=== PATIENT | female | born 1955 | race Caucasian/White ===

== ENCOUNTER → 2018-02-04 11:37 | Outpatient (CLI) | payer OTHER, SELFPAY ==
--- NOTE | 2018-02-04 11:44 | RAD_ITS ---
STUDY: X-RAY - ABDOMEN/PELVIS REASON FOR EXAM: Female, 62 years old. Mid abdominal pain, nausea. TECHNIQUE: Three AP supine views of the abdomen and pelvis. COMPARISON: CT abdomen and pelvis October 02, 2015 FINDINGS: Normal visualized lung bases. There is an unremarkable bowel gas pattern. There is no demonstrated free abdominal air. Surgical clips of prior right nephrectomy again seen projecting to the right of the upper lumbar spine. The visualized liver, spleen, and left renal shadow are grossly normal in size and morphology. There are calcified phleboliths in the pelvis. 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 RAD/Abdomen Single View IMPRESSION: 1. Prior right nephrectomy. 2. Nonspecific bowel gas pattern. No free gas. 3. The visualized lung bases are clear. Electronically Signed: Pablo Subramanian MD at 14:02 EDT , Service support ,
[2018-02-04 14:27] LABS: Absolute Lymphocyte Count 1.78 X10^3/ul (0.83-4.51); Absolute Neutrophil Count 3.8 X10^3/uL (2.0-7.7); Basophil# 0.06 X10^3/uL; Basophil% 0.9 % (0-1); Eosinophil# 0.23 X10^3/uL; Eosinophils% 3.6 % (0-5); Hematocrit 40.7 % (37-47); Hemoglobin 13.8 g/dl (12.0-15.0); Lymphocyte # 1.78 X10^3/ul (4.0); Lymphocyte % 27.9 % (19-41); Mean Corp Hgb Conc 33.9 g/gl (32-36); Mean Corpuscular Hgb 31.2 pg (27.0-32.0); Mean Corpuscular Volume 91.9 fL (81-99); Mean Platelet Vol. 9.4 fl (6.2-12.0); Monocyte# 0.53 X10^3/uL; Monocyte% 8.3 % (0-10); Neutrophil # 3.78 X10^3/uL (2.7-7.7); Neutrophil % 59.3 % (47-70); Platelet Count 336 K/mm3 (150-450); RBC Distribution Width CV 11.8 % (11.6-14.6); Red Blood Count 4.43 M/mm3 (4.2-5.4); White Blood Count 6.4 K/mm3 (4.4-11.0)
[2018-02-04 14:38] LABS: POSITIVE COUNT NO; POSITIVE DIFFERENTIAL NO; POSITIVE MORPHOLOGY NO
[2018-02-04 14:42] LABS: ALB/GLOB Ratio 1.1 RATIO (0.9-2.4); AST(SGOT) 21 U/L (15-37); Alanine Aminotransfer ALT/SGPT 32 U/L (13-56); Albumin, Serum 4.2 g/dL (3.2-5.0); Alkaline Phosphatase 99 U/L (45-117); Anion Gap 8 (5-15); BUN 15 mg/dL (7-18); BUN/Creat Ratio 11.3 RATIO (10-20); Calcium,Total 9.2 mg/dL (8.5-10.1); Chloride 93 mmol/L (98-107); Creatinine, Serum 1.33 mg/dL (0.55-1.02); EST Glomerular Filtration Rate 43 mL/min (>60); Est Glom Filt Rate - Afr Amer 52 mL/min (>60); Globulin 3.7 g/dL (2.2-4.2); Glucose 96 mg/dL (74-106); Lipase 163 U/L (73-393); Potassium 4.1 mmol/L (3.5-5.1); Protein, Total 7.9 g/dL (6.4-8.2); Sodium Level 132 mmol/L (136-145)
[2018-02-15 17:30] LABS: Renin, Plasma 0.353 ng/mL/hr (0.167-5.380)
== END ==
PROVIDERS: Family Provider Family Medicine; PCP Family Medicine; Visit Provider Family Medicine
DX: R10.9 Unspecified abdominal pain (principal); E27.40 Unspecified adrenocortical insufficiency; Z51.81 Encounter for therapeutic drug level monitoring
CPT/HCPCS: 36415; 74018; 80053; 81002; 83690; 84244; 85025

== ENCOUNTER → 2018-08-23 14:16 | Outpatient (CLI) | payer OTHER, SELFPAY ==
[2018-08-22 11:47] VITALS: BMI 31.4
== END ==
PROVIDERS: Family Provider Family Medicine; PCP Family Medicine; Referring Provider Physician Assistant; Visit Provider Physician Assistant
DX: J02.9 Acute pharyngitis, unspecified (principal)
CPT/HCPCS: 87081

== ENCOUNTER → 2018-12-25 08:57 | Outpatient (CLI) | payer OTHER, SELFPAY ==
[2018-08-22 11:47] VITALS: BMI 31.4
--- NOTE | 2018-12-25 09:01 | BI_ITS ---
MAMMOGRAPHY - BILATERAL SCREENING 3-D TOMOSYNTHESIS REASON FOR EXAM: Female, 63 years old. Bilateral Screening 3-D tomosynthesis PERTINENT HISTORY: Bilateral breast reduction in 2010.. TECHNIQUE: 2-D mammograms and 3-D Tomosynthesis of the breast (s) were performed. CAD was performed. COMPARISON: July 15, 2017. FINDINGS: The breast composition is composed of scattered fibroglandular density. Scattered benign calcifications are seen. No dense spiculated masses or suspicious microcalcifications are identified. No architectural distortion is identified. There is no skin thickening or retraction. There are typically benign appearing calcifications involving the anterior regions of both breasts.. There has been no significant change since the prior study. BI/SCREENING MAMM (CAD), BILAT IMPRESSION: No mammographic signs of malignancy. Routine yearly mammograms recommended. ASSESSMENT CATEGORY: BIRADS Category 2: Benign. A letter regarding these results will be sent to the patient by the facility within 30 days. FOLLOW UP RECOMMENDATION: Yearly follow up mammogram recommended. (A) Approximately 10% of breast cancers are not detected by mammography. A normal mammogram should not delay biopsy of a clinically suspicious abnormality. Electronically Signed: Eulalio Miramontes MD at 10:00 EDT , Service support ,
== END ==
PROVIDERS: Family Provider Family Medicine; PCP Family Medicine; Referring Provider Family Medicine; Visit Provider Family Medicine
DX: Z12.31 Encounter for screening mammogram for malignant neoplasm of breast (principal)
CPT/HCPCS: 77063; 77067

== ENCOUNTER → 2019-01-18 08:24 | Outpatient (CLI) | payer OTHER, SELFPAY ==
[2018-08-22 11:47] VITALS: BMI 31.4
[2019-01-18 12:38] LABS: Absolute Lymphocyte Count 1.83 X10^3/ul (0.83-4.51); Absolute Neutrophil Count 3.8 X10^3/uL (2.0-7.7); Basophil# 0.05 X10^3/uL; Basophil% 0.8 % (0-1); Eosinophils% 4.5 % (0-5); Hematocrit 39.3 % (37-47); Hemoglobin 13.3 g/dl (12.0-15.0); Lymphocyte # 1.83 X10^3/ul (4.0); Lymphocyte % 27.5 % (19-41); Mean Corp Hgb Conc 33.8 g/gl (32-36); Mean Corpuscular Hgb 31.4 pg (27.0-32.0); Mean Corpuscular Volume 92.7 fL (81-99); Mean Platelet Vol. 9.5 fl (6.2-12.0); Monocyte# 0.66 X10^3/uL; Monocyte% 9.9 % (0-10); Neutrophil % 57.1 % (47-70); Platelet Count 291 K/mm3 (150-450); RBC Distribution Width CV 11.6 % (11.6-14.6); RBC Distribution Width SD 38.8 fl (35.1-43.9); Red Blood Count 4.24 M/mm3 (4.2-5.4); White Blood Count 6.7 K/mm3 (4.4-11.0)
[2019-01-18 12:44] LABS: POSITIVE COUNT NO; POSITIVE DIFFERENTIAL NO; POSITIVE MORPHOLOGY NO
[2019-01-18 12:54] LABS: Vitamin D,25 Hydroxy 59.9 ng/mL (29.95-100.01)
[2019-01-18 13:03] LABS: ALB/GLOB Ratio 1.1 RATIO (0.9-2.4); AST(SGOT) 21 U/L (15-37); Alanine Aminotransfer ALT/SGPT 29 U/L (13-56); Albumin, Serum 3.8 g/dL (3.2-5.0); Alkaline Phosphatase 73 U/L (45-117); Anion Gap 9 (5-15); BUN 33 mg/dL (7-18); BUN/Creat Ratio 22.8 RATIO (10-20); Calcium,Total 9.2 mg/dL (8.5-10.1); Chloride 98 mmol/L (98-107); Cholesterol 249 mg/dL (200); Creatinine, Serum 1.45 mg/dL (0.55-1.02); EST Glomerular Filtration Rate 39 mL/min (>60); Est Glom Filt Rate - Afr Amer 47 mL/min (>60); Globulin 3.6 g/dL (2.2-4.2); Glucose 81 mg/dL (74-106); High Density Lipoprotein 62 mg/dL; Potassium 4.2 mmol/L (3.5-5.1); Protein, Total 7.4 g/dL (6.4-8.2); Sodium Level 135 mmol/L (136-145); Triglycerides 97 mg/dL; Very Low Density Lipoprotein 19 mg/dL (5-40)
== END ==
PROVIDERS: Family Provider Family Medicine; PCP Family Medicine; Visit Provider Family Medicine
DX: Z00.00 Encounter for general adult medical examination without abnormal findings (principal); E27.40 Unspecified adrenocortical insufficiency; E55.9 Vitamin D deficiency, unspecified
CPT/HCPCS: 36415; 80053; 80061; 82306; 82533; 85025

== ENCOUNTER → 2019-02-05 09:02 | Outpatient (CLI) | payer OTHER, SELFPAY ==
[2018-08-22 11:47] VITALS: BMI 31.4
--- NOTE | 2019-02-05 09:10 | RAD_ITS ---
HISTORY:PERSISTENT COUGH PERSISTENT COUGH EXAM: XR Chest 2 Views: COMPARISON: October 02, 2015 FINDINGS: # of images incl. paperwork: 2 LINES/DEVICES: None. LUNGS: Radiographically clear. No consolidation, edema or effusion. No pneumothorax. MEDIASTINUM AND CARDIOVASCULAR STRUCTURES: Cardiac silhouette not enlarged. BONES AND SOFT TISSUES: Unremarkable. RAD/Chest PA and Lateral IMPRESSION: No radiographic evidence of acute cardiopulmonary disease. at 2311 Reported and signed by: Camille Alvarado DO Electronically Signed: Camille Alvarado DO at 23:10 EDT Tel , Service support ,
--- NOTE | 2019-02-05 09:19 | RAD_ITS ---
HISTORY:CHRONIC MID LEVEL TO LOWER THORACIC PAIN CHRONIC MID LEVEL TO LOWER THORACIC PAIN EXAMINATION/TECHNIQUE: XR Spine Thoracic 3 Views: COMPARISON: None FINDINGS: VERTEBRAE: Preserved vertebral body height. No fracture. No spondylolisthesis. Degenerative changes of the posterior elements. Preservation of the normal thoracic kyphosis. DISCS: Degenerative changes are noted. INCLUDED CHEST/ABDOMEN: No acute abnormalities. RAD/Thoracic Spine 3 Views IMPRESSION: Degenerative changes. No acute fracture or spondylolisthesis. at 0014 Reported and signed by: Camille Alvarado DO Electronically Signed: Camille Alvarado DO at 0:13 EDT Tel , Service support ,
== END ==
PROVIDERS: Family Provider Family Medicine; PCP Family Medicine; Referring Provider Family Medicine; Visit Provider Family Medicine
DX: R05 Cough (principal); M54.6 Pain in thoracic spine
CPT/HCPCS: 71046; 72072

== ENCOUNTER → 2019-02-17 13:25 | Outpatient (CLI) | payer OTHER, SELFPAY ==
[2018-08-22 11:47] VITALS: BMI 31.4
== END ==
PROVIDERS: Family Provider Family Medicine; PCP Family Medicine; Visit Provider Family Medicine
DX: E27.40 Unspecified adrenocortical insufficiency (principal)
CPT/HCPCS: 82533

== ENCOUNTER 2019-02-24 11:38 | Emergency (ER) | payer OTHER, SELFPAY ==
[2018-08-22 11:47] VITALS: BMI 31.4
[2019-02-24 11:39] VITALS: BP 166/96; PULSE 72; RESP 18; TEMP 36.4; O2SAT 99; BMI 29.5
--- NOTE | 2019-02-24 11:53 | ED.VIS.UPPEX ---
History of Present Illness Chief Complaint: Laceration Detail of Chief Complaint: Right thumb laceration Informant: Patient Occurred: Today Mechanism/Context: - - Cut right thumb while using a mandolin to slice vegetables. Onset: Today Timing: Continuous Quality of Pain: Aching, Throbbing Current Severity: Mild Maximum Severity: Moderate Narrative: Patient is a [id number]-bmja-ydomymdd female who cut her right thumb while using a mandolin to slice vegetables. She is unsure of her last tetanus update. Past Medical History - Allergies and Home Meds Allergies/Adverse Reactions: Allergies Sulfa (Sulfonamide Antibiotics) Allergy (Verified 02/24/19 11:42) Hives Primary Care Physician: Weston Cárdenas DO [Primary Care Provider] - Surgical History: - - Nephrectomy on the right. She donated her kidney to her brother.appy,hysterectemy Smoking Status: Never smoker - Family History Maternal Family History: Family History (Last Reviewed 08/22/18 @ 11:41 by Sandra Brito) Mother Myocardial infarction Heart disease Father Heart disease Brother Kidney disease Family History: Reports: Diabetes, Heart Disease Paternal Family History: Family History (Last Reviewed 08/22/18 @ 11:41 by Sandra Brito) Mother Myocardial infarction Heart disease Father Heart disease Brother Kidney disease Family History: Reports: Asthma, Diabetes, Heart Disease Review of Systems General: Denies: Chills, Fever Cardiovascular: Denies: Chest pain Respiratory: Denies: Dyspnea, Cough Genitourinary: Denies: Dysuria Musculoskeletal: Reports: Arthralgias Physical Exam Vital Signs/Narrative: Vital Signs Temp Pulse Resp BP Pulse Ox 02/24/19 11:39 97.6 F L 72 18 166/96 H 99 Inital Vital Signs reviewed: Yes Right Hand: - - 3 cm total length V-shaped laceration over the distal right thumb. Mild bleeding noted at this time. She has good range of motion and good cap refill distally. Sensation is intact. General: Well nourished, Well developed ENT: No Trauma Neck: Nontender Cardiovascular: Regular rate, Regular rhythm Respiratory: No distress Abdomen: Soft, Nontender Skin: - - Laceration as above Procedures - Lacerations No standard instances Length: 1.18 in - V-shaped laceration Shape: Flap Prep: Donald Laceration Repair: Digital block, Lidocaine Irrigated (ml): 30 Number of Sutures/Adam: 7 Suture Information: Simple, 4-0, 5-0 Disposition: Home ED Disposition - Plan for ED Patient: Disposition: Home or Assisted Living Diagnosis: Laceration of right thumb Instructions: LACERATION, Hand Referrals: Weston Cárdenas DO [Primary Care Provider] - 7 Days for suture removal
[2019-02-24] MEDS: Diphth,Pertuss(Acell),Tet Vac 0.5 ML Vial IM (11:57)
[2019-02-24 12:43] VITALS: BP 185/77; PULSE 68; RESP 15
== END 2019-02-24 12:44 | disposition home or self-care (01) ==
PROVIDERS: Emergency Provider Emergency Medicine; Family Provider Family Medicine; PCP Family Medicine
DX: S61.011A Laceration without foreign body of right thumb without damage to nail, initial encounter (principal); W27.8XXA Contact with other nonpowered hand tool, initial encounter; Y93.G1 Activity, food preparation and clean up; Y92.9 Unspecified place or not applicable; Y99.9 Unspecified external cause status; Z88.2 Allergy status to sulfonamides; Z90.5 Acquired absence of kidney
CPT/HCPCS: 12002; 90715; 99283

== ENCOUNTER → 2019-03-04 07:59 | Outpatient (CLI) | payer OTHER, SELFPAY ==
[2018-08-22 11:47] VITALS: BMI 31.4
[2019-02-24 11:39] VITALS: BMI 29.5
== END ==
PROVIDERS: Family Provider Family Medicine; PCP Family Medicine; Visit Provider Family Medicine
DX: E27.40 Unspecified adrenocortical insufficiency (principal)
CPT/HCPCS: 36415; 82533

== ENCOUNTER → 2019-04-21 14:16 | Outpatient (CLI) | payer OTHER, SELFPAY ==
--- NOTE | 2019-04-21 14:30 | RAD_ITS ---
STUDY: X-RAY CHEST REASON FOR EXAM: Female, 63 years old. persistent cough TECHNIQUE: PA and lateral views of the chest. COMPARISON: February 05, 2019, January 11, 2015 FINDINGS: The lungs are clear and expanded. The upper lobes do appear hyperlucent which may relate to underlying COPD. There is no demonstrated pleural abnormality. Normal size heart. Normal mediastinum and niko. Normal visualized pulmonary arteries. There is atherosclerotic calcification of the aortic arch with tortuosity. There are diffuse degenerative changes of the visualized thoracic spine. Normal visualized ribs, clavicles, and shoulders. There is no demonstrated abnormality of the visualized soft tissue structures of the upper abdomen. There are surgical clips in the midline upper abdominal area. RAD/Chest PA and Lateral IMPRESSION: No acute abnormality or significant interval change. Electronically Signed: Merna Sahni MD at 14:58 EDT , Service support ,
== END ==
PROVIDERS: Family Provider Family Medicine; PCP Family Medicine; Referring Provider Family Medicine; Visit Provider Family Medicine
DX: J20.9 Acute bronchitis, unspecified (principal)
CPT/HCPCS: 71046; 87070; 87205; 87633

== ENCOUNTER 2019-04-30 12:59 | Emergency (ER) | payer OTHER, SELFPAY ==
[2019-04-30 13:00] VITALS: BP 146/83; PULSE 68; RESP 16; TEMP 36.6; O2SAT 98; BMI 31.2
--- NOTE | 2019-04-30 14:44 | ED.VIS.GEN ---
History of Present Illness Chief Complaint: Fall Narrative: Patient presenting for evaluation due to skin tears. Patient [place] and suffered multiple skin tears and abrasions on her right arm. Patient is up-to-date on tetanus. Wounds were dressed [place] the [place], but she started to feel somewhat lightheaded so she came to the emergency department. No chest pain palpitations or syncope. She has an underlying history of adrenal insufficiency, and is already on stress dose steroids due to a viral infection. Past Medical History - Allergies and Home Meds Allergies/Adverse Reactions: Allergies Sulfa (Sulfonamide Antibiotics) Allergy (Verified 04/30/19 13:04) Hives Primary Care Physician: Weston Cárdenas DO [Primary Care Provider] - Past Medical History: - - Adrenal insufficiency Surgical History: - - Nephrectomy on the right. She donated her kidney to her brother.appy,hysterectemy Smoking Status: Never smoker - Family History Maternal Family History: Family History (Last Reviewed 08/22/18 @ 11:41 by Sandra Brito) Mother Myocardial infarction Heart disease Father Heart disease Brother Kidney disease Family History: Reports: Diabetes, Heart Disease Paternal Family History: Family History (Last Reviewed 08/22/18 @ 11:41 by Sandra Brito) Mother Myocardial infarction Heart disease Father Heart disease Brother Kidney disease Family History: Reports: Asthma, Diabetes, Heart Disease Review of Systems All systems negative except as indicated Skin: Reports: Wounds Physical Exam Vital Signs/Narrative: Vital Signs Temp Pulse Resp BP Pulse Ox 04/30/19 13:00 97.9 F 68 16 146/83 H 98 Inital Vital Signs reviewed: Yes General: Well nourished, Well developed, No Acute Distress Head: Normocephalic, Atraumatic Eyes: Perrl, EOMI ENT: Moist mucous membranes, No rhinorrhea Neck: Supple, Nontender Cardiovascular: Regular rate, Regular rhythm, Murmur - 2/6 systolic Respiratory: No distress, CTA bilaterally, Chest nontender Abdomen: Soft, Nontender, Nondistended, Normal bowel sounds Back: Nontender Extremities: - - Right arm shows 2 skin tears about 2cm a piece. there is a large linear abrasion going to the axilla Skin: - - wounds Neurological: Alert, Oriented x3, Cranial nerves II-XII grossly intact, Normal Strength, Normal Sensation Psychological: Normal affect, Normal Mood Diagnostic/Tx/Re-eval - Medical Decision Making Pt presented with skin tears. I trimmed a total of 4cm2 of deviatlized skin. wounds were irrigated and dressed. Patient is already on stress dose steroids. There is no indication for suture repair. At this point I do not feel that there is indication for empiric antibiotic treatment. Patient was recommended to watch for signs and symptoms of infection and she was discharged. ED Disposition - Plan for ED Patient: Disposition: Home or Assisted Living Diagnosis: Skin tear of right upper extremity Instructions: Skin Avulsion Referrals: Weston Cárdenas DO [Primary Care Provider] - (3-5 days for wound check)
[2019-04-30 14:50] VITALS: BP 134/82; PULSE 61; RESP 16; O2SAT 98
== END 2019-04-30 15:01 | disposition home or self-care (01) ==
PROVIDERS: Emergency Provider Emergency Medicine; Family Provider Family Medicine; PCP Family Medicine
DX: S41.111A Laceration without foreign body of right upper arm, initial encounter (principal); W19.XXXA Unspecified fall, initial encounter; Y93.89 Activity, other specified; Y92.838 Other recreation area as the place of occurrence of the external cause; Y99.9 Unspecified external cause status; E27.40 Unspecified adrenocortical insufficiency; Z88.2 Allergy status to sulfonamides; Z82.49 Family history of ischemic heart disease and other diseases of the circulatory system; Z90.5 Acquired absence of kidney
CPT/HCPCS: 99284

== ENCOUNTER 2019-05-31 15:27 | Emergency (ER) | payer OTHER, SELFPAY ==
[2019-05-31] VITALS (8 sets, daily range): BP systolic 148–162; BP diastolic 70–78; PULSE 74–103; RESP 18–22; TEMP 36.5–37.1; O2SAT 98–99; BMI 30.5
--- NOTE | 2019-05-31 15:43 | EKG12_ITS ---
Test Reason : Blood Pressure : / mmHG Vent. Rate : 078 BPM Atrial Rate : 078 BPM P-R Int : 128 ms QRS Dur : 092 ms QT Int : 370 ms P-R-T Axes : 056 047 042 degrees QTc Int : 421 ms Normal sinus rhythm Normal ECG Confirmed by TJ CORONA ([id number]), visual effects editor GLO POSADA ([id number]) on 06/06/2019 3:38:28 PM Referred By: CATHRYN Confirmed By:TJ CORONA
--- NOTE | 2019-05-31 15:55 | ED.VISSUMM ---
- ER Visit Summary Date of Service: 05/31/19 Chief Complaint: Shortness of breath History of Present Illness: The patient is a 63 F who presents the emergency department with 3 weeks of cough and shortness of breath. She tells me that about 3 weeks ago she saw her doctor (Dr. Cárdenas) and she has been contact with them over the past 3 weeks. She is tried aerosols at home. Yesterday she was seen in the office again and was placed on Levaquin. She has had 2 doses. She denies any known lung conditions and is a non-smoker. She tells me about 6 years ago she had a very bad respiratory illness and that is why she has a home aerosol machine. He is uncertain she denies any fevers. She notes the cough is productive. She notes her voice is weak Physical Examination: 162/78 temperature is 97.7 heart rate of 103 respirations are 20 pulse ox 98% on room air Gen: Well-nourished well-developed Head: Normocephalic atraumatic Eyes: Perrl EOMI ENT: TMs clear no rhinorrhea moist mucous membranes hoarse voice Neck: Supple no lymphadenopathy no JVD nontender CVS: Regular rate tachycardic rhythm no murmurs normal S1-S2 Respiratory: No distress patient has bilateral rhonchi and a moist cough there is faint expiratory wheeze chest nontender Abdomen: Soft nontender nondistended normal bowel sounds no masses Back: Nontender Extremity: Nontender no edema Skin: Normal color no rash Neuro: alert orientated ?3 CN II-XII intact normal strength sensation Psych: Patient appears frustrated Test Results: White count is 11 creatinine 1.56. Troponin is negative. Chest x-ray is negative CTA of the chest showed no pulmonary embolism or dissection there was a new nodule that was noted. Emergency Department Course and Treatment: Patient received stacked aerosols and she states has really helped her. I also gave her a dose of Solu-Medrol. I suspect the patient given her hoarse voice and her symptoms probably is a more viral illness. I am going to have her continue her Levaquin as she is on day 2 already. I will write her for tapering prednisone. Advised her to humidify the room she is sleeping in. We talked about doing to aerosols with each treatment if needed. She will return if worsening or concerns. Impression: 1. Acute bronchitis with bronchospasm This note was generated with [employer] dictation software. It may contain incorrect words, spelling, and punctuation that were not noted in review of the chart prior to signing ED Disposition - Plan for ED Patient: Disposition: Home or Assisted Living Instructions: BRONCHITIS with Wheezing (Adult) Prescriptions: Prednisone 10 mg PO DAILY #63 tab Prescription Printed Albuterol Aerosols [Ventolin Aerosols] 2.5 mg INHALATION Q4H PRN #25 vial Prescription Printed Referrals: Weston Cárdenas DO [Primary Care Provider] - 1 Week if not improving
[2019-05-31] MEDS: MethylPREDNISolone 125 MG/2 ML Vial IV (15:56)
[2019-05-31] MEDS: Ipratropium/Albuterol Sulfate 3 ML AMPUL.NEB INHALATION (16:05)
[2019-05-31] MEDS: Albuterol 2.5 MG/3 ML VIAL.NEB. INHALATION ×2 (16:05)
[2019-05-31 16:11] LABS: Absolute Lymphocyte Count 1.81 X10^3/uL (0.83-4.51); Basophil# 0.06 X10^3/uL; Basophil% 0.5 % (0-1); Eosinophil# 0.24 X10^3/uL; Eosinophils% 2.2 % (0-5); Hematocrit 37.8 % (37-47); Hemoglobin 12.8 g/dL (12.0-15.0); Lymphocyte # 1.81 X10^3/ul (4.0); Lymphocyte % 16.5 % (19-41); Mean Corp Hgb Conc 33.9 g/dL (32-36); Mean Corpuscular Hgb 31.8 pg (27.0-32.0); Mean Corpuscular Volume 93.8 fL (81-99); Mean Platelet Vol. 8.8 fl (6.2-12.0); Monocyte# 0.87 X10^3/uL; Monocyte% 7.9 % (0-10); NRBC Flagged by Analyzer 0 % (0-5); Neutrophil # 7.96 X10^3/uL (2.7-7.7); Neutrophil % 72.6 % (47-70); Platelet Count 268 K/mm3 (150-450); RBC Distribution Width CV 11.7 % (11.6-14.6); RBC Distribution Width SD 40.7 fl (35.1-43.9); Red Blood Count 4.03 M/mm3 (4.2-5.4)
--- NOTE | 2019-05-31 16:25 | RAD_ITS ---
STUDY: X-RAY CHEST REASON FOR EXAM: Female, 63 years old. Cough. TECHNIQUE: Frontal and lateral views of the chest. COMPARISON: None. FINDINGS: The lungs are clear and expanded. There is no demonstrated pleural abnormality. Normal size heart. Normal mediastinum and niko. Normal visualized pulmonary arteries. Normal visualized aortic arch and descending thoracic aorta. There are diffuse degenerative changes of the visualized thoracic spine. Normal visualized ribs, clavicles, and shoulders. There is no demonstrated abnormality of the visualized soft tissue structures of the upper abdomen. RAD/Chest PA and Lateral IMPRESSION: No acute chest disease. Electronically Signed: Ajay Roblero MD at 16:43 EDT , Service support ,
[2019-05-31 16:26] LABS: Anion Gap 7 (5-15); BUN 24 mg/dL (7-18); BUN/Creat Ratio 15.4 RATIO (10-20); Calcium,Total 9.1 mg/dL (8.5-10.1); Chloride 98 mmol/L (98-107); Creatinine, Serum 1.56 mg/dL (0.55-1.02); EST Glomerular Filtration Rate 36 mL/min (>60); Est Glom Filt Rate - Afr Amer 43 mL/min (>60); Estimated Creatinine Clearance 31.87 ml/min; Glucose 102 mg/dL (74-106); Sodium Level 134 mmol/L (136-145)
--- NOTE | 2019-05-31 16:53 | CT_ITS ---
STUDY: CTA CHEST REASON FOR EXAM: Female, 63 years old. Dyspnea. Previous history of PE RADIATION DOSAGE (If Supplied By Facility): CTDIvol = ( 11.06 ) mGy, DLP = ( 443.75 ) mGycm TECHNIQUE: The examination was performed with the intravenous administration of IV Isovue 370 75ml. Post-processing of the angiographic images was performed, with multiplanar reformation and 3D reconstruction. Individualized dose optimization techniques were used for this CT. COMPARISON: 03/26/2015. FINDINGS: Normal enhancement of the main pulmonary artery and right and left pulmonary arteries. Normal enhancement of the bilateral peripheral pulmonary arteries. There is no demonstrated pulmonary embolism. Normal thoracic aorta and visualized great vessels. There is no demonstrated aortic dissection. Normal heart and pericardium. Normal mediastinum. Normal hilar regions. Normal visualized trachea and bronchi. The lungs are hyper expanded, with flattening of the hemidiaphragms. There is a 4 mm spiculated nodule in the left apex, axial image 212 . This was not present previously. Follow-up is recommended. There is an elongated nodule in the periphery of the anterior segment of the right upper lobe, axial image 146. This is stable. No infiltrates. No effusions. Normal chest wall structures. There are degenerative changes of thoracic spine. Normal visualized upper abdomen. CT/CTA Chest W/WO Contrast IMPRESSION: Normal CTA chest examination, without a demonstrated pulmonary embolism or arterial dissection. Left apex pulmonary nodule as described. Recommend follow-up in 4-6 months. Electronically Signed: Ajay Roblero MD at 17:31 EDT , Service support ,
== END 2019-05-31 17:55 | disposition home or self-care (01) ==
PROVIDERS: Emergency Provider Emergency Medicine; Family Provider Family Medicine; PCP Family Medicine
DX: J20.9 Acute bronchitis, unspecified (principal)
CPT/HCPCS: 71046; 71275; 80048; 84484; 85025; 93005; 94640; 96374; 99283; Q9967; A4216

== ENCOUNTER → 2019-07-05 06:51 | Outpatient (CLI) | payer OTHER, SELFPAY ==
[2019-05-31 15:29] VITALS: BMI 30.5
--- NOTE | 2019-07-05 14:31 | PFTCOMP ---
COMPLETE PULMONARY FUNCTION TEST INTERPRETATION Brief HPI: Patient is a 63 year old female, currently under the care of Dr. Cárdenas, who presents to [facility] for complete pulmonary function tests secondary to diagnosis of asthma and recurrent infection. Respiratory therapist reports good effort and reproducible results. Interpretation: Forced expiration spirometry shows a mild large airways obstructive ventilatory defect with an FEV1 of 89% predicted. There is no significant bronchodilator response by strict ATS criteria, but patient's results barely missed significance. Spirograms are of good quality and plateau slowly, indicating slowly emptying areas of the lungs. The respiratory flow volume loop shows decreased expiratory flow rates at high lung volumes consistent with small airways obstruction. Lung volumes by body plethysmography show a normal total lung capacity at 5.07 L, 104% predicted. All other lung volumes are within normal limits. Diffusion capacity by carbon monoxide is normal at 88% predicted. The airway resistance is normal. Compared to previous pulmonary function tests from 03/29/2015, there is been a significant improvement in lung volumes. Impression: Technically irreversible mild large airways obstructive ventilatory defect, but just missed clinical significance by ATS criteria. Consider chest imaging for bronchiectasis if not done previously.
== END ==
PROVIDERS: Family Provider Family Medicine; PCP Family Medicine; Referring Provider Family Medicine; Visit Provider Family Medicine
DX: J45.909 Unspecified asthma, uncomplicated (principal)
CPT/HCPCS: 94060; 94726; 94729

== ENCOUNTER → 2019-09-07 08:02 | Outpatient (CLI) | payer OTHER, SELFPAY ==
[2019-05-31 15:29] VITALS: BMI 30.5
[2019-09-07 12:28] LABS: Vitamin D,25 Hydroxy 33.3 ng/mL (29.95-100.01)
[2019-09-07 12:30] LABS: Erythrocyte Sedimentation Rate 2 mm/hr (0-30)
[2019-09-07 12:51] LABS: ALB/GLOB Ratio 1.2 RATIO (0.9-2.4); AST(SGOT) 15 U/L (15-37); Alanine Aminotransfer ALT/SGPT 26 U/L (13-56); Alkaline Phosphatase 70 U/L (45-117); Anion Gap 6 (5-15); BUN 24 mg/dL (7-18); BUN/Creat Ratio 17.1 RATIO (10-20); CRP < 2.90 mg/L (0.0-3.0); Calcium,Total 9.3 mg/dL (8.5-10.1); Chloride 99 mmol/L (98-107); EST Glomerular Filtration Rate 40 mL/min (>60); Est Glom Filt Rate - Afr Amer 49 mL/min (>60); Globulin 3.2 g/dL (2.2-4.2); Glucose 76 mg/dL (74-106); Potassium 3.5 mmol/L (3.5-5.1); Protein, Total 7.2 g/dL (6.4-8.2); Rheumatoid Factor < 10.0 IU/mL (<15); Sodium Level 134 mmol/L (136-145)
[2019-09-08 13:41] LABS: ANTINUCLEAR ANTIBODIES DIRECT Negative (Negative)
[2019-09-09 09:32] LABS: CCP IgG Antibodies 9 units (0-19)
== END ==
PROVIDERS: Family Provider Family Medicine; PCP Family Medicine; Visit Provider Family Medicine
DX: E27.40 Unspecified adrenocortical insufficiency (principal); M25.50 Pain in unspecified joint; E55.9 Vitamin D deficiency, unspecified; R79.89 Other specified abnormal findings of blood chemistry; R76.8 Other specified abnormal immunological findings in serum
CPT/HCPCS: 36415; 80053; 82306; 82533; 85652; 86038; 86140; 86200; 86225; 86235; 86431

== ENCOUNTER → 2019-12-12 13:48 | Outpatient (CLI) | payer OTHER, SELFPAY ==
[2019-05-31 15:29] VITALS: BMI 30.5
--- NOTE | 2019-12-12 13:52 | RAD_ITS ---
STUDY: X-RAY CHEST REASON FOR EXAM: Female, 64 years old. COUGH X 1 MONTH WITH SOB. PAINS ACROSS MID BACK WELL. TECHNIQUE: PA and lateral views of the chest. COMPARISON: Comparison is made with prior examination dated May 31, 2019. FINDINGS: Hyperinflation. Scattered calcified granulomas. There is no demonstrated pleural abnormality. Normal size heart. Normal mediastinum and niko. Normal visualized pulmonary arteries. There is atherosclerotic calcification of the aortic arch with tortuosity. There are diffuse degenerative changes of the visualized thoracic spine. Normal visualized ribs, clavicles, and shoulders. There is no demonstrated abnormality of the visualized soft tissue structures of the upper abdomen. RAD/Chest PA and Lateral IMPRESSION: Hyperinflation. The lungs are clear. Electronically Signed: Wu Alicia, at 15:25 EDT , Service support ,
[2019-12-12 14:57] LABS: Absolute Neutrophil Count 4.6 X10^3/uL (2.0-7.7); Basophil# 0.09 X10^3/uL; Basophil% 1.2 % (0-1); Eosinophils% 2.6 % (0-5); Hematocrit 39.3 % (37-47); Hemoglobin 13.4 g/dL (12.0-15.0); Lymphocyte % 28.2 % (19-41); Mean Corp Hgb Conc 34.1 g/dL (32-36); Mean Corpuscular Hgb 32.3 pg (27.0-32.0); Mean Corpuscular Volume 94.7 fL (81-99); Mean Platelet Vol. 9.5 fl (6.2-12.0); Monocyte# 0.73 X10^3/uL; Monocyte% 9.3 % (0-10); NRBC Flagged by Analyzer 0 % (0-5); Neutrophil # 4.57 X10^3/uL (2.7-7.7); Neutrophil % 58.4 % (47-70); Platelet Count 283 K/mm3 (150-450); RBC Distribution Width CV 12.2 % (11.6-14.6); RBC Distribution Width SD 42.2 fl (35.1-43.9); Red Blood Count 4.15 M/mm3 (4.2-5.4); White Blood Count 7.8 K/mm3 (4.4-11.0)
[2019-12-12 15:15] LABS: CRP < 2.90 mg/L (0.0-3.0)
== END ==
PROVIDERS: PCP Family Medicine; Referring Provider Family Medicine; Visit Provider Family Medicine
DX: R05 Cough (principal); E27.40 Unspecified adrenocortical insufficiency
CPT/HCPCS: 36415; 71046; 82533; 85025; 86140

== ENCOUNTER → 2020-02-01 12:09 | Outpatient (CLI) | payer OTHER, SELFPAY ==
[2019-05-31 15:29] VITALS: BMI 30.5
== END ==
PROVIDERS: PCP Family Medicine; Referring Provider Family Medicine; Visit Provider Family Medicine
DX: Z20.828 Contact with and (suspected) exposure to other viral communicable diseases (principal)
CPT/HCPCS: 87635; G2023; U0003

== ENCOUNTER → 2020-02-20 13:57 | Outpatient (CLI) | payer OTHER, SELFPAY ==
[2019-05-31 15:29] VITALS: BMI 30.5
--- NOTE | 2020-02-20 14:01 | RAD_ITS ---
STUDY: X-RAY - LUMBAR SPINE REASON FOR EXAM: Female, 64 years old. pt fell and hit right side back area by the hip on the edge of a bed TECHNIQUE: 5 view(s) of the lumbar spine were obtained. COMPARISON: 2012 FINDINGS: There is straightening of the normal lumbar lordosis. There is no substantial scoliosis. There is a normal alignment of the vertebrae. There is multilevel endplate spondylosis of the lumbar vertebrae. There is multi-level degenerative disc disease with multi-level disc space narrowing. There is no demonstrated fracture. The soft tissue structures are unremarkable. RAD/L/S Spine Min 4 Views IMPRESSION: Degenerative changes of the spine, as detailed above. Electronically Signed: Pablo Duke MD at 15:13 EDT , Service support ,
--- NOTE | 2020-02-20 14:01 | RAD_ITS ---
STUDY: X-RAY - THORACIC SPINE REASON FOR EXAM: Female, 64 years old. Pt fell and hit right side back area by the hip on the edge of a bed TECHNIQUE: 3 view(s) of the thoracic spine were obtained. COMPARISON: None. FINDINGS: Normal kyphosis of the thoracic spine. There is no substantial scoliosis. There is multilevel endplate spondylosis of the thoracic vertebrae. There is multilevel disc space narrowing of the thoracic spine. The soft tissue structures are unremarkable. RAD/Thoracic Spine 3 Views IMPRESSION: Multilevel degenerative changes Electronically Signed: Pablo Duke MD at 15:52 EDT , Service support ,
== END ==
PROVIDERS: PCP Family Medicine; Referring Provider Family Medicine; Visit Provider Family Medicine
DX: M54.6 Pain in thoracic spine (principal); M54.5 Low back pain
CPT/HCPCS: 72072; 72110

== ENCOUNTER → 2020-05-24 08:40 | Outpatient (CLI) | payer OTHER, SELFPAY ==
[2019-05-31 15:29] VITALS: BMI 30.5
[2020-05-24 12:47] LABS: Absolute Lymphocyte Count 2.56 X10^3/uL (0.83-4.51); Absolute Neutrophil Count 3.1 X10^3/uL (2.0-7.7); Basophil# 0.07 X10^3/uL; Eosinophil# 0.41 X10^3/uL; Hematocrit 41.1 % (37-47); Hemoglobin 13.7 g/dL (12.0-15.0); Lymphocyte # 2.56 X10^3/ul (4.0); Lymphocyte % 37.6 % (19-41); Mean Corp Hgb Conc 33.3 g/dL (32-36); Mean Corpuscular Hgb 31.7 pg (27.0-32.0); Mean Corpuscular Volume 95.1 fL (81-99); Mean Platelet Vol. 9.6 fl (6.2-12.0); Monocyte# 0.69 X10^3/uL; Monocyte% 10.1 % (0-10); NRBC Flagged by Analyzer 0 % (0-5); Neutrophil # 3.06 X10^3/uL (2.7-7.7); Platelet Count 307 K/mm3 (150-450); RBC Distribution Width CV 11.7 % (11.6-14.6); RBC Distribution Width SD 41.3 fl (35.1-43.9); Red Blood Count 4.32 M/mm3 (4.2-5.4); White Blood Count 6.8 K/mm3 (4.4-11.0)
[2020-05-24 13:05] LABS: Vitamin D,25 Hydroxy 66.8 ng/mL
[2020-05-24 13:12] LABS: ALB/GLOB Ratio 1.2 RATIO (0.9-2.4); AST(SGOT) 17 U/L (15-37); Alanine Aminotransfer ALT/SGPT 25 U/L (13-56); Albumin, Serum 4.1 g/dL (3.2-5.0); Alkaline Phosphatase 69 U/L (45-117); Anion Gap 6 (5-15); BUN 18 mg/dL (7-18); BUN/Creat Ratio 12.9 RATIO (10-20); Calcium,Total 9.2 mg/dL (8.5-10.1); Chloride 98 mmol/L (98-107); Creatinine, Serum 1.39 mg/dL (0.55-1.02); EST Glomerular Filtration Rate 41 mL/min (>60); Est Glom Filt Rate - Afr Amer 49 mL/min (>60); Globulin 3.4 g/dL (2.2-4.2); Glucose 77 mg/dL (74-106); Potassium 3.8 mmol/L (3.5-5.1); Protein, Total 7.5 g/dL (6.4-8.2); Sodium Level 135 mmol/L (136-145); Thyroid Stim Hormone (TSH) 5.89 uIU/mL (0.358-3.74)
== END ==
PROVIDERS: PCP Family Medicine; Visit Provider Family Medicine
DX: R53.83 Other fatigue (principal); E27.40 Unspecified adrenocortical insufficiency; E55.9 Vitamin D deficiency, unspecified
CPT/HCPCS: 36415; 80053; 82306; 82533; 84443; 85025

== ENCOUNTER → 2020-06-18 16:12 | Outpatient (CLI) | payer OTHER, SELFPAY ==
[2019-05-31 15:29] VITALS: BMI 30.5
== END ==
PROVIDERS: PCP Family Medicine; Visit Provider Family Medicine
DX: Z20.818 Contact with and (suspected) exposure to other bacterial communicable diseases (principal)
CPT/HCPCS: 87635; U0003

== ENCOUNTER → 2020-08-08 11:30 | Outpatient (CLI) | payer MEDICARE, OTHER, SELFPAY ==
[2019-05-31 15:29] VITALS: BMI 30.5
--- NOTE | 2020-08-08 11:37 | RAD_ITS ---
STUDY: X-RAY - LEFT FOOT CLINICAL: Female, 65 years old. pain and swelling top of foot x 2 weeks -- no injury TECHNIQUE: 3 view(s) of the foot. COMPARISON: None. FINDINGS: Plantar spur and one small calcification of the plantar aponeurosis. Small dorsal enthesophyte of the calcaneus. Normal talus and tarsal bones. Normal visualized subtalar, talonavicular, calcaneocuboid, tarsal and tarsometatarsal articulations. Normal metatarsi. Normal metatarsophalangeal joint of the great toe. Normal tibial and fibular sesamoid bones. Normal interphalangeal joint of the great toe. Normal phalanges of the great toe. Normal second through fifth metatarsophalangeal joints. Normal interphalangeal joints and phalanges of the lesser toes. The soft tissue structures are unremarkable. RAD/Foot min 3 Views IMPRESSION: No acute bone or joint findings. Negative for fracture, osteolytic or blastic bone lesion. Dorsal enthesophyte and plantar spur of the calcaneus. One small calcification of the plantar aponeurosis. Electronically Signed: Lisette Mckeon MD at 19:24 EST , Service support ,
== END ==
PROVIDERS: PCP Family Medicine; Referring Provider Family Medicine; Visit Provider Family Medicine
DX: M79.673 Pain in unspecified foot (principal)
CPT/HCPCS: 73630

== ENCOUNTER → 2020-08-29 12:16 | Outpatient (CLI) | payer MEDICARE, OTHER, SELFPAY ==
[2019-05-31 15:29] VITALS: BMI 30.5
== END ==
PROVIDERS: PCP Family Medicine; Referring Provider Physician Assistant Surgical; Visit Provider Physician Assistant Surgical
DX: Z01.812 Encounter for preprocedural laboratory examination (principal)
CPT/HCPCS: 36415; 82040

== ENCOUNTER → 2020-10-01 10:55 | Outpatient (CLI) | payer MEDICARE, OTHER, SELFPAY ==
[2019-05-31 15:29] VITALS: BMI 30.5
--- NOTE | 2020-10-01 10:57 | VDLE_ITS ---
Reason For Study: Pain RIGHT GSV is normal. CFV is compressible, spontaneous, phasic, competent and demonstrates normal augmentation. FV is compressible, spontaneous, phasic, competent and demonstrates normal augmentation. POP V is compressible, spontaneous, phasic, competent and demonstrates normal augmentation. T/P Trunk is compressible. PTV is compressible. RT PerV is compressible. Procedure Exam performed in department. A preliminary report was called and/or faxed to Bryon GEORGE. Interpretation Summary Deep veins of the right lower extremity are patent and compressible segmentally. There is no evidence of right lower extremity deep vein thrombosis. Valvular competence appears intact within the proximal deep venous system on the right . The right great saphenous vein appears patent and compressible segmentally. Ordering Physician: Bryon Chacon Referring Physician: Weston Cárdenas Performed By: Dulce Mcpherson, LG, RVT
== END ==
PROVIDERS: PCP Family Medicine; Referring Provider Physician Assistant Surgical; Visit Provider Physician Assistant Surgical
DX: M79.661 Pain in right lower leg (principal)
CPT/HCPCS: 93971

== ENCOUNTER → 2021-01-22 12:45 | Outpatient (CLI) | payer MEDICARE, OTHER, SELFPAY ==
[2019-05-31 15:29] VITALS: BMI 30.5
--- NOTE | 2021-01-22 12:48 | VDLE_ITS ---
Reason For Study: pain Procedure LEFT This is a venous duplex using B-mode, color GSV is normal. flow and spectral Doppler. CFV is compressible, spontaneous, phasic, Exam performed in department. competent, and demonstrates normal The exam was abbreviated due to the COVID 19 augmentation. protocol. FV is compressible, spontaneous, phasic, The exam was diagnostic. competent and demonstrates normal A preliminary report was called and/or faxed augmentation. to Dr. Holland. POP V is compressible, spontaneous, phasic, competent and demonstrates normal augmentation. T/P Trunk is compressible. PTV is compressible. LT PerV is compressible. Heterogeneous area behind the knee measuring 2.41 x 1.28 cm. Area is nonvascular. VL/Venous Duplex US, Unilateral Interpretation Summary Deep veins of the left lower extremity are patent and compressible segmentally. There is no evidence of left lower extremity deep vein thrombosis. Valvular competence appears intac t within the proximal deep venous system on the left . The left great saphenous vein appears patent a nd compressible segmentally. A non-vascular, heterogeneous structure is noted in the left popli teal space, measuring 2.41 cm x 1.28 cm. This may represent a popliteal cyst. Clinical correlation is advised. Ordering Physician: Woody Holland Performed By: Jerson Sumner RVT
== END ==
PROVIDERS: PCP Family Medicine; Referring Provider Specialist; Visit Provider Specialist
DX: M79.662 Pain in left lower leg (principal)
CPT/HCPCS: 93971

== ENCOUNTER → 2021-03-13 14:41 | Outpatient (CLI) | payer MEDICARE, OTHER, SELFPAY ==
[2019-05-31 15:29] VITALS: BMI 30.5
[2021-03-13 15:11] LABS: Absolute Lymphocyte Count 1.33 X10^3/uL (0.83-4.51); Absolute Neutrophil Count 7.7 X10^3/uL (2.0-7.7); Basophil# 0.07 X10^3/uL; Basophil% 0.7 % (0-1); Eosinophil# 0.14 X10^3/uL; Eosinophils% 1.4 % (0-5); Hematocrit 37.2 % (37-47); Hemoglobin 12.3 g/dL (12.0-15.0); Lymphocyte # 1.33 X10^3/ul (0.83-4.51); Lymphocyte % 13.5 % (19-41); Mean Corp Hgb Conc 33.1 g/dL (32-36); Mean Corpuscular Hgb 29.6 pg (27.0-32.0); Mean Corpuscular Volume 89.6 fL (81-99); Mean Platelet Vol. 8.6 fl (6.2-12.0); Monocyte# 0.56 X10^3/uL; Monocyte% 5.7 % (0-10); NRBC Flagged by Analyzer 0 % (0-5); Neutrophil # 7.67 X10^3/uL (2.7-7.7); Neutrophil % 78.2 % (47-70); Platelet Count 313 K/mm3 (150-450); RBC Distribution Width CV 12.1 % (11.6-14.6); RBC Distribution Width SD 39.8 fl (35.1-43.9); Red Blood Count 4.15 M/mm3 (4.2-5.4); White Blood Count 9.8 K/mm3 (4.4-11.0)
[2021-03-13 15:36] LABS: ALB/GLOB Ratio 1.1 RATIO (0.9-2.4); AST(SGOT) 18 U/L (15-37); Alanine Aminotransfer ALT/SGPT 27 U/L (13-56); Albumin, Serum 3.8 g/dL (3.2-5.0); Alkaline Phosphatase 78 U/L (45-117); Anion Gap 6 (5-15); BUN 17 mg/dL (7-18); Calcium,Total 9.6 mg/dL (8.5-10.1); Chloride 92 mmol/L (98-107); Creatinine, Serum 1.13 mg/dL (0.55-1.02); EST Glomerular Filtration Rate 51 mL/min (>60); Est Glom Filt Rate - Afr Amer 62 mL/min (>60); Globulin 3.6 g/dL (2.2-4.2); Glucose 89 mg/dL (74-106); Potassium 3.9 mmol/L (3.5-5.1); Protein, Total 7.4 g/dL (6.4-8.2); Sodium Level 131 mmol/L (136-145)
== END ==
PROVIDERS: PCP Family Medicine; Visit Provider Family Medicine
DX: R53.83 Other fatigue (principal); R42 Dizziness and giddiness
CPT/HCPCS: 36415; 80053; 85025

== ENCOUNTER → 2021-05-03 12:03 | Outpatient (CLI) | payer MEDICARE, OTHER, SELFPAY ==
--- NOTE | 2021-05-03 12:06 | RAD_ITS ---
STUDY: X-RAY CHEST REASON FOR EXAM: Female, 65 years old. Fever and cough TECHNIQUE: PA and lateral views of the chest. COMPARISON: 12/12/2019 FINDINGS: The lungs are clear and expanded. There is no demonstrated pleural abnormality. Normal size heart. Normal mediastinum and niko. Normal visualized pulmonary arteries. There is atherosclerotic calcification of the aortic arch with tortuosity. Normal visualized thoracic spine. Normal visualized ribs, clavicles, and shoulders. There is no demonstrated abnormality of the visualized soft tissue structures of the upper abdomen. RAD/Chest PA and Lateral IMPRESSION: No acute pulmonary process Electronically Signed: Pablo Duke MD at 12:19 EDT , Service support ,
== END ==
PROVIDERS: PCP Family Medicine; Referring Provider Family Medicine; Visit Provider Family Medicine
DX: R05 Cough (principal)
CPT/HCPCS: 71046

== ENCOUNTER → 2021-07-15 12:36 | Outpatient (CLI) | payer MEDICARE, OTHER, SELFPAY | PROVIDERS: PCP Family Medicine; Visit Provider Family Medicine | DX: Z20.828 Contact with and (suspected) exposure to other viral communicable diseases (principal) | CPT/HCPCS: 87635; U0005; U0003 ==

== ENCOUNTER → 2021-08-13 12:32 | Outpatient (CLI) | payer MEDICARE, OTHER, SELFPAY ==
--- NOTE | 2021-08-13 12:34 | BI_ITS ---
MAMMOGRAPHY - BILATERAL SCREENING REASON FOR EXAM: Female, 66 years old. Routine annual screening examination. PERTINENT HISTORY: Non-contributory. History of prior bilateral breast reduction surgery. TECHNIQUE: Digital bilateral breast gracia (3D mammographic acquisition) in the CC and MLO projections. 2-D mediolateral oblique (MLO) and craniocaudad (CC) views of both breasts were obtained. CAD: Full Field Digital Mammography with Computer Added Detection was performed. COMPARISON: Comparison is made with prior study dated 12/25/2018 and 07/15/2017. FINDINGS: Breast Composition: The breasts are almost entirely fatty. There are no dominant masses or suspicious calcifications. No other significant abnormalities are identified. There has been no significant change since the prior study. BI/SCRN MAMM (CAD)W/GRACIA BILAT IMPRESSION: Stable bilateral screening mammogram. Yearly follow-up mammogram recommended. (A) ASSESSMENT CATEGORY: BIRADS Category 1: Negative. A letter regarding these results will be sent to the patient by the facility within 30 days. Approximately 10% of breast cancers are not detected by mammography. A normal mammogram should not delay biopsy of a clinically suspicious abnormality. [id number] Electronically Signed: Wu Alicia MD at 13:06 EST , Service support ,
== END ==
PROVIDERS: PCP Family Medicine; Referring Provider Family Medicine; Visit Provider Family Medicine
DX: Z12.31 Encounter for screening mammogram for malignant neoplasm of breast (principal)
CPT/HCPCS: 77063; 77067

== ENCOUNTER 2021-09-24 09:38 | Outpatient (CLI) | payer MEDICARE, OTHER, SELFPAY ==
--- NOTE | 2021-09-24 09:42 | RAD_ITS ---
STUDY: X-RAY - RIGHT SHOULDER REASON FOR EXAM: Female, 66 years old. PAIN/FALL TECHNIQUE: 4 view(s) of the shoulder. COMPARISON: None. FINDINGS: There is moderate degenerative arthrosis of the glenohumeral articulation. There is degenerative arthrosis of the acromioclavicular joint without inferior osseous spur formation. Normal acromion. Normal humeral head and visualized proximal humerus. The soft tissue structures are unremarkable. Normal visualized pulmonary apex. RAD/Shoulder min 2 Views IMPRESSION: Degenerative arthrosis, no demonstrated fracture or suspicious osseous lesion Electronically Signed: Pablo Duke MD at 12:07 EST ,
[2021-09-24 12:24] LABS: Absolute Lymphocyte Count 1.88 X10^3/uL (0.83-4.51); Absolute Neutrophil Count 4.6 X10^3/uL (2.0-7.7); Basophil# 0.05 X10^3/uL; Basophil% 0.7 % (0-1); Eosinophil# 0.13 X10^3/uL; Eosinophils% 1.8 % (0-5); Hematocrit 41.6 % (37-47); Hemoglobin 13.9 g/dL (12.0-15.0); Lymphocyte # 1.88 X10^3/ul (0.83-4.51); Lymphocyte % 25.8 % (19-41); Mean Corp Hgb Conc 33.4 g/dL (32-36); Mean Corpuscular Hgb 31.2 pg (27.0-32.0); Mean Corpuscular Volume 93.3 fL (81-99); Mean Platelet Vol. 9.8 fl (6.2-12.0); Monocyte# 0.66 X10^3/uL; NRBC Flagged by Analyzer 0 % (0-5); Neutrophil # 4.55 X10^3/uL (2.7-7.7); Neutrophil % 62.3 % (47-70); Platelet Count 317 K/mm3 (150-450); RBC Distribution Width CV 12.5 % (11.6-14.6); RBC Distribution Width SD 43.3 fl (35.1-43.9); Red Blood Count 4.46 M/mm3 (4.2-5.4); White Blood Count 7.3 K/mm3 (4.4-11.0)
[2021-09-24 12:46] LABS: Vitamin B12 706 pg/mL (211-911); Vitamin D,25 Hydroxy 49.2 ng/mL
[2021-09-24 12:53] LABS: AST(SGOT) 14 U/L (15-37); Alanine Aminotransfer ALT/SGPT 24 U/L (13-56); Albumin, Serum 3.8 g/dL (3.2-5.0); Alkaline Phosphatase 77 U/L (45-117); Anion Gap 5 (5-15); BUN 26 mg/dL (7-18); BUN/Creat Ratio 20.5 RATIO (10-20); Calcium,Total 9.4 mg/dL (8.5-10.1); Chloride 99 mmol/L (98-107); Cholesterol 248 mg/dL (200); Creatinine, Serum 1.27 mg/dL (0.55-1.02); EST Glomerular Filtration Rate 45 mL/min (>60); Est Glom Filt Rate - Afr Amer 54 mL/min (>60); Globulin 3.9 g/dL (2.2-4.2); Glucose 67 mg/dL (74-106); High Density Lipoprotein 66 mg/dL; Potassium 3.6 mmol/L (3.5-5.1); Protein, Total 7.7 g/dL (6.4-8.2); Sodium Level 136 mmol/L (136-145); Thyroid Stim Hormone (TSH) 2.68 uIU/mL (0.358-3.74); Triglycerides 119 mg/dL; Very Low Density Lipoprotein 24 mg/dL (5-40)
== END 2021-09-24 23:59 | disposition short-term general hospital (02) ==
LOC: MTLAB 09:40
PROVIDERS: PCP Family Medicine; Referring Provider Family Medicine; Visit Provider Family Medicine
DX: E27.40 Unspecified adrenocortical insufficiency (principal); E78.5 Hyperlipidemia, unspecified; R79.89 Other specified abnormal findings of blood chemistry; E55.9 Vitamin D deficiency, unspecified; R53.83 Other fatigue; M25.511 Pain in right shoulder
CPT/HCPCS: 36415; 73030; 80053; 80061; 82306; 82533; 82607; 84443; 85025

== ENCOUNTER → 2021-12-27 | Outpatient (CLI) | payer MEDICARE, OTHER, SELFPAY ==
--- NOTE | 2021-12-27 16:44 | CT_ITS ---
STUDY: CT Chest W/O Contrast Injection 12/27/2021 5:51 PM REASON FOR EXAM: Female, 66 years old. LUNG NODULE L UPPER LUNG Individualized dose optimization techniques were used for this CT. TECHNIQUE: Transaxial imaging was performed withoutIV contrast material. COMPARISON: 05/31/2019. FINDINGS: There are degenerative changes of the shoulders. There is no pneumothorax. There is no demonstrated pleural abnormality. 4.7 mm right upper lobe nodule. Series 4 image 48. Stable right lower lobe subpleural nodule measuring 4.9 mm. Series 4 image 68. 2.8 mm nodule in the left upper lobe is spiculated. Series 4 image 22. There are calcifications of the coronary arteries. Normal mediastinum. Normal hilar regions. Normal pulmonary arteries. There is atherosclerotic calcification of the aortic arch with tortuosity and elongation of the aortic arch and descending thoracic aorta. There are multi-level degenerative changes of the thoracic spine. There are no acute findings of the upper abdomen. 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 ACR Lung CT Screening Reporting T Data System (Lung-RADS) score: 2 - Benign Appearance or Behavior. Recommend continued annual screening with low-dose CT (LDCT) in 12 months. Electronically Signed: Samym Patricia MD at 17:56 EDT ,
== END | disposition home or self-care (01) ==
LOC: CT 16:43
PROVIDERS: PCP Family Medicine; Referring Provider Family Medicine; Visit Provider Family Medicine
DX: R91.1 Solitary pulmonary nodule (principal)
CPT/HCPCS: 71250

== ENCOUNTER → 2022-01-14 | Outpatient (CLI) | payer MEDICARE, OTHER, SELFPAY ==
--- NOTE | 2022-01-14 13:32 | ECHOD_ITS ---
Reason For Study: RE EVAL MURMUR Procedure This was a 2D Doppler, Color Flow transthoracic echocardiogram. The study was technically difficult. Exam performed in department. Left Ventricle Normal LV size. Left ventricular systolic function is normal. The estimated ejection fraction is 60 %. No regional wall motion abnormalities noted. Right Ventricle Normal RV size. Normal systolic function. Atria Normal left atrium. Normal right atrium. Mitral Valve Normal mitral valve. Tricuspid Valve Normal tricuspid valve. Mild tricuspid valve insufficiency. Aortic Valve Trisinus/trileaflet aortic valve. Mild focal aortic valve calcification. Mild (1+) aortic valve insufficiency. Pulmonic Valve Normal pulmonic valve. Great Vessels Normal aortic root. The pulmonary artery is normal size. Normal inferior vena cava. Pericardium/Pleural No pericardial effusion. MMode/2D Measurements & Calculations RVDd: 3.4 cm Ao root diam: 3.1 cm LAV(MOD-sp4): 30.2 ml LA A4 area: 14.0 cm2 LA dimension(2D): 3.6 cm RA A4 area: 13.4 cm2 Doppler Measurements & Calculations MV E max mahesh: 92.7 cm/sec Lat Peak E' Mahesh: 10.5 cm/sec Med Peak E' Mahesh: 10.8 cm/sec MV A max mahesh: 99.8 cm/sec E/E' lat: 8.9 E/E' med: 8.6 MV E/A: 0.93 Ao V2 max: 224.1 cm/sec AI max mahesh: 417.9 cm/sec LV V1 max: 109.7 cm/sec Ao max P.1 mmHg AI max P.9 mmHg LV V1 max P.8 mmHg Ao V2 mean: 156.8 cm/sec LV V1 mean P.4 mmHg Ao mean P.0 mmHg AI dec slope: 212.7 cm/sec2 LV V1 mean: 73.5 cm/sec Ao V2 VTI: 54.5 cm AI P1/2t: 575.5 msec LV V1 VTI: 27.0 cm PA V2 max: 108.8 cm/sec TR max mahesh: 222.9 cm/sec TR max P.9 mmHg ECHO/Echo Complete Interpretation Summary Normal LV size. Left ventricular systolic function is normal. The estimated ejection fraction is 60 %. Mild focal aortic valve calcification. Mild (1+) aortic valve insufficiency. Compared to previous study, the left ventricular systolic function is the same. . Ordering Physician: Weston Cádrenas Referring Physician: Weston Cárdenas Performed By: Angelica Shepherd RCS
== END | disposition home or self-care (01) ==
LOC: CVS 13:26
PROVIDERS: PCP Family Medicine; Visit Provider Family Medicine
DX: R01.1 Cardiac murmur, unspecified (principal)
CPT/HCPCS: 93306

== ENCOUNTER → 2022-03-05 | Outpatient (CLI) | payer MEDICARE, OTHER, SELFPAY ==
--- NOTE | 2022-03-05 07:37 | RAD_ITS ---
PROCEDURE: Fluoroscopic guided right shoulder injection. DATE: 03/05/2022 INDICATION: Female, 66 years old. Right shoulder pain. PHYSICIAN: uW Alicia M.D. MEDICATIONS: 12 mg of BETAMETHASONE and 4 cc of 1% LIDOCAINE. 2% lidocaine administered subcutaneously for local anesthesia. ACCESS SITE: Right shoulder. NEEDLE: 22-gauge spinal needle. FLUOROSCOPY TIME (if supplied): (0:33) minutes/seconds. One image was submitted. FINDINGS: The risks, benefits, and alternatives to the procedure were explained to the patient. The specific risks of bleeding, infection, and neurovascular injury were detailed and accepted. Witnessed informed consent was obtained. A 22-gauge spinal needle was positioned under radiographic fluoroscopic localization. Approximately 2 cc of ISOVUE-300 instilled for localization purposes. Medication was then injected. The patient tolerated the procedure well without any immediate complications. RAD/Inj/Asp Shilo Jt Should/Hip/Knee IMPRESSION: 1. Successful fluoroscopic guided right shoulder injection. Electronically Signed: Wu Alicia MD at 9:01 EDT ,
[2022-03-05] MEDS: Betamethasone/Betamethasone 30 MG/5 ML Vial 12 MG INTRAARTIC (08:10)
[2022-03-05] MEDS: Lidocaine 1% (5 ml sdv) 5 ML Vial 4 ML OPERA.SITE (08:10)
[2022-03-05] MEDS: Lidocaine 2% (5ml sdv) 5 ML VIAL.MPF INFILT (08:10)
== END | disposition home or self-care (01) ==
PROVIDERS: PCP Family Medicine; Visit Provider Specialist
DX: M19.011 Primary osteoarthritis, right shoulder (principal)
CPT/HCPCS: 20610; 77002; Q9967; J0702

== ENCOUNTER → 2022-04-07 | Outpatient (CLI) | payer MEDICARE, OTHER, SELFPAY ==
--- NOTE | 2022-04-07 09:44 | RAD_ITS ---
STUDY: XR Knee Complete 4 Views or More 04/07/2022 3:30 PM REASON FOR EXAM: Female, 66 years old. POST FALL ONE WEEK Technologist Notes pain after a fall off a segway x 1 week TECHNIQUE: XR Knee Complete 4 Views or More LEFT COMPARISON: None FINDINGS: Total left knee arthroplasty. Normal visualized proximal tibia and fibula. Normal proximal tibiofibular articulation. Normal medial femorotibial compartment. Normal lateral femorotibial compartment. Normal patellofemoral articulation. There is a soft tissue prominence in the suprapatellar region suggesting a small volume joint effusion. The soft tissue structures are unremarkable. RAD/Knee 4 or More Views IMPRESSION: Effusion, as described above. Electronically Signed: Sammy Patricia MD at 15:31 EDT ,
--- NOTE | 2022-04-07 09:44 | RAD_ITS ---
EXAM: XR LEFT TOES, 2 OR MORE VIEWS CLINICAL INDICATION: POST FALL ONE WEEK TECHNIQUE: Frontal, lateral and oblique views of the toes of the left foot. This report was created using [employer] report generation technology. COMPARISON: 08.08.20 FINDINGS: BONES/JOINTS: Unremarkable. No acute fracture. No dislocation. SOFT TISSUES: Unremarkable. No radiopaque foreign body. RAD/Toe(s) Min 2 Views IMPRESSION: Negative left toe x-rays. Electronically Signed: Sammy Patricia MD at 14:37 EDT ,
--- NOTE | 2022-04-07 09:44 | RAD_ITS ---
EXAM: XR LEFT TIBIA AND FIBULA, 2 VIEWS CLINICAL INDICATION: POST FALL ONE WEEK TECHNIQUE: Frontal and lateral views of the left tibia and fibula. This report was created using [employer] report generation technology. COMPARISON: None. FINDINGS: BONES/JOINTS: There is an enthesophyte involving the posterior superior calcaneus at the site of insertion of the Achilles tendon. There is a calcaneal spur. Total left knee arthroplasty. No acute fracture. No subluxation. Normal alignment. No sclerotic or destructive changes observed. SOFT TISSUES: Soft tissue edema around the lower extremity. No radiopaque foreign body. RAD/Tibia & Fibula 2 Views IMPRESSION: Soft tissue edema around the lower extremity. Electronically Signed: Sammy Patricia MD at 15:39 EDT ,
== END | disposition home or self-care (01) ==
PROVIDERS: PCP Family Medicine; Referring Provider Family Medicine; Visit Provider Family Medicine
DX: Z20.828 Contact with and (suspected) exposure to other viral communicable diseases (principal); M25.569 Pain in unspecified knee; Z96.652 Presence of left artificial knee joint
CPT/HCPCS: 73564; 73590; 73660; 87635; U0003; U0005

== ENCOUNTER → 2022-05-12 | Outpatient (CLI) | payer MEDICARE, OTHER, SELFPAY ==
[2022-05-12 10:12] LABS: Absolute Lymphocyte Count 2.22 X10^3/uL (0.83-4.51); Basophil# 0.07 X10^3/uL; Basophil% 0.8 % (0-1); Eosinophil# 0.19 X10^3/uL; Eosinophils% 2.3 % (0-5); Hematocrit 40.6 % (37-47); Hemoglobin 13.5 g/dL (12.0-15.0); Lymphocyte # 2.22 X10^3/ul (0.83-4.51); Lymphocyte % 26.8 % (19-41); Mean Corp Hgb Conc 33.3 g/dL (32-36); Mean Corpuscular Hgb 31.9 pg (27.0-32.0); Mean Platelet Vol. 9.7 fl (6.2-12.0); Monocyte# 0.76 X10^3/uL; Monocyte% 9.2 % (0-10); NRBC Flagged by Analyzer 0 % (0-5); Neutrophil # 5.01 X10^3/uL (2.7-7.7); Neutrophil % 60.7 % (47-70); Platelet Count 323 K/mm3 (150-450); RBC Distribution Width CV 12.5 % (11.6-14.6); RBC Distribution Width SD 43.8 fl (35.1-43.9); Red Blood Count 4.23 M/mm3 (4.2-5.4); White Blood Count 8.3 K/mm3 (4.4-11.0)
[2022-05-12 10:16] LABS: Erythrocyte Sedimentation Rate 14 mm/hr (0-30)
[2022-05-12 11:02] LABS: AST(SGOT) 17 U/L (15-37); Alanine Aminotransfer ALT/SGPT 21 U/L (13-56); Albumin, Serum 3.6 g/dL (3.2-5.0); Alkaline Phosphatase 73 U/L (45-117); Anion Gap 13 (5-15); BUN 17 mg/dL (7-18); BUN/Creat Ratio 12.1 RATIO (10-20); Chloride 99 mmol/L (98-107); Creatinine, Serum 1.41 mg/dL (0.55-1.02); EST Glomerular Filtration Rate 40 mL/min (>60); Est Glom Filt Rate - Afr Amer 48 mL/min (>60); Globulin 3.5 g/dL (2.2-4.2); Glucose 101 mg/dL (74-106); Potassium 3.3 mmol/L (3.5-5.1); Protein, Total 7.1 g/dL (6.4-8.2); Sodium Level 138 mmol/L (136-145); Thyroid Stim Hormone (TSH) 4.92 uIU/mL (0.358-3.74)
== END | disposition home or self-care (01) ==
LOC: MTLAB 08:57
PROVIDERS: PCP Family Medicine; Referring Provider Family Medicine; Visit Provider Family Medicine
DX: E27.40 Unspecified adrenocortical insufficiency (principal); R53.83 Other fatigue; R11.0 Nausea
CPT/HCPCS: 36415; 80053; 82533; 84443; 85025; 85652; 86140

== ENCOUNTER 2022-06-05 08:40 | Day surgery (SDC) | payer MEDICARE, OTHER, SELFPAY ==
[2022-06-05 08:57] VITALS: BP 188/82; PULSE 69; RESP 16; TEMP 36.4; O2SAT 99; BMI 36.9
[2022-06-05] MEDS: Lactated Ringers 1,000 ML 15 ML IV (09:12)
--- NOTE | 2022-06-05 10:03 | HP.PCM_ITS ---
History and Physical Date of Service:? 04/23/22 MR#: [id number] Acct: [id number] Name:? YULISA ARCEO Rep #: [id number] : 1955 ? ? Provider: Dr. Francisco Javier Pate MD Age/Sex:? 66/F ? ? Location: [facility] Status: Signed Intake Vital Signs ? 09/02/2209:59 04/23/2208:05 Height 5 ft 4 in 5 ft 4 in Weight: ? 221 lb 8 oz BMI ? 38.0 Respiration ? 18 Pulse ? 73 Pulse Source ? NIBP Temp ? 97.6 F L Temp Source ? Temporal Pulse Oximetry (%) ? 98 Oxygen Delivery Method ? room air Intake Visit Reasons:?CSCOPE Chief Complaint: screening colonoscopy Head Batcher Required: No Is patient in pain?: No Allergies Sulfa (Sulfonamide Antibiotics) Allergy (Verified 04/23/22 08:05) Hives Medications trazodone 50 mg tablet 150 mg PO QHS 07/23/13 [History Confirmed 04/23/22] sertraline 25 mg tablet (Zoloft) 25 mg PO QHS 04/21/18 [History Confirmed 04/23/22] bupropion HCl 300 mg 24 hr tablet, extended release 300 mg PO DAILY 02/24/19 [History Confirmed 04/23/22] hydrocortisone 20 mg tablet 10 mg PO TID 04/30/19 [History Confirmed 04/23/22] albuterol sulfate 2.5 mg/3 mL (0.083 %) solution for nebulization 2.5 mg (3 mL) inhalation Q4H PRN #25 vials 05/31/19 [Rx Confirmed 04/23/22] acyclovir 400 mg tablet 400 mg PO DAILY PRN 09/02/21 [History Confirmed 04/23/22] gabapentin 600 mg tablet 600 mg PO BID 09/02/21 [History Confirmed 04/23/22] multivitamin (Daily Multi-Vitamin tablet) 1 tab PO DAILY 09/02/21 [History Confirmed 04/23/22] pantoprazole 40 mg tablet,delayed release 40 mg PO DAILY 09/02/21 [History Confirmed 04/23/22] ascorbic acid (vitamin C) 1,000 mg capsule 1 g PO DAILY 04/23/22 [History Confirmed 04/23/22] vitamin B complex 1 tab PO DAILY 04/23/22 [History Confirmed 04/23/22] Is last menstrual period known: No Post menopausal: Yes Patient : No PFSH Medical History?(Updated 04/23/22 @ 08:[address] Francisco Javier Pate MD) Adrenal insufficiency Anxiety and depression Chronic kidney disease Fibromyalgia GERD (gastroesophageal reflux disease) History of pulmonary embolism History of unilateral nephrectomy Hyperlipidemia Hypertension Hypothyroidism Non-rheumatic tricuspid valve insufficiency Nonrheumatic mitral (valve) insufficiency Secondary pulmonary arterial hypertension Surgical History? H/O foot surgery H/O reduction mammoplasty History of bilateral knee replacement History of hysterectomy History of right and left heart catheterization (08/13/15) History of tonsillectomy Status post uvulopalatopharyngoplasty Family History?(Updated 04/23/22 @ 08:13 by Shanika Diana) Mother?? Myocardial infarction ?? ? age 67 Heart disease ?? ? CHF, CA Depression DiabetesFather?? Asthma Arthritis Heart disease Diabetes HypertensionBrother?? Kidney diseaseGrandmother Diabetes Colon cancer CVA (cerebral vascular accident)Aunt DiabetesUncle DiabetesOther Bowel disease Social History? Smoking Status:? Never smoker alcohol intake:? current details:? occasionally substance use type:? does not use frequency:? 3-4 times per week HPI HPI HPI: YULISA ARCEO, is a 66 F who presents to the office today for need to schedule screening colonoscopy secondary to time lapse since prior screening colonoscopy is greater than 10 years.? They are referred for surgical consultation from Dr. Cárdenas.? Patient has had prior colonoscopy.? Patient believes the scope was a little longer than 10 years ago here at the hospital.? She believes the results of the scope were clean and no polyps were identified.? Patient has no personal history of inflammatory bowel disease, diverticulitis, or colon cancer. They describe their bowel habits as normal with formed stools.? They have approximately 1-3 per day without significant straining.? They have not noticed recent bleeding or dark stools.? They do regularly take fiber supplements with an [id number] dietary supplement for digestive health by nature made.? Patient has a family history of colon cancer in her maternal grandmother who she states was diagnosed at the age of 74 or 75.? ? ? The patient's weight is not stable and she has experienced some recent intentional weight loss as she had previously gained weight being laid up following 3 successive knee surgery 6 months ago. The patient is no longer prescribed anticoagulants, but does have a history of pulmonary emboli and was on Eliquis for 1 year.? No cause for her clots was ever found so this medication was discontinued several years ago. Relevant prior abdominal surgical history includes: Donor nephrectomy in 1975 and total abdominal hysterectomy remotely for history of fibroids. Additionally, patient has a history of gastroesophageal reflux disease, but faithfully takes pantoprazole.? She says on this medication regimen she is very well controlled and will experience breakthrough episodes only a couple of times per year.? She states these episodes seem to be mostly related to when she overdoes it with juice intake. ROS General General: Yes weight change and fatigue; No appetite, colon cancer, breast cancer or weakness HEENT HEENT: No difficulty swallowing, eye injury, eye surgery, swollen glands or hoarseness Endo Endocrine: No thyroid disease, diabetes mellitus, thyroid cancer, Hair loss, heat intolerance or cold intolerance Musc Musculoskeletal: Yes arthritis; No back problems, rheumatoid arthritis, gout or joint pain Cardio Cardiovascular: Yes murmur; No pacemaker, heart disease, atrial fibrillation, high blood pressure, heart attack, heart stent, palpitations, shortness of breat with exertion or chest pain Psych Psychiatric: Yes depression and anxiety; No hearing voices Resp Respiratory: No shortness of breath, No sleep apnea, Yes cough, No COPD, No asthma, No emphysema and No wheezing Gastro Gastrointestinal: No abdominal pain, No nausea or vomiting, No diarrhea, No constipation, No blood in stool, Yes acid reflux, No hemorrhoids, No ulcers, No gallbladder problem and No black,tarry stools Flo Hematologic: No blood thinners, No blood disorders, No bleeding, No anemia and Yes blood clots Neuro Neurologic: No weakness Exam Const General: cooperative, comfortable and no acute distress Orientation: alert, awake and oriented x3 Resp Effort & Inspection: normal respiratory effort Auscultation: no rales, no rhonchi and no wheezes Cardio Rate: regular rate Rhythm: regular rhythm Heart Sounds: murmur systolic GI Other: Patient's abdomen is nondistended, there is a very large right subcostal scar from prior nephrectomy surgery that is well-healed.? Patient has no tenderness with palpation to 4 quadrants. Assessment and Plan Assessment and Plan (1) Screening for colon cancer: ?Status:?Acute ?Comment: Patient presents to update her screening colonoscopies.? She has had 1 prior scope which she recalls as being unremarkable and its findings.? She denies any personal history that is concerning for any change in her GI health.? She does have a family history of a maternal grandmother who was diagnosed with colon cancer in her mid 70s.? Given this later onset, I have informed her that this should not confer any significant genetic risk to her.? Patient does have a history of gastroesophageal reflux disease, but this is well controlled with pantoprazole and very minimal breakthrough episodes are experienced.? Therefore I do not find any indication to perform a concurrent EGD exam.? We will plan to proceed with requested screening colonoscopy under local MAC at first mutually available date.? I did discuss the prep needed for the procedure as well as the requirement that the patient have a class c truck driver the day of the procedure given the presence of sedation.? Patient has expressed understanding and acceptance of this information. ?Plan: ? Plan will be to complete colonoscopy on first mutually of agreeable date under local MAC.? Pre-procedure prep discussed and paper instructions provided.? Patient is also made aware that she will need to have a class c truck driver with her the day of the procedure. ? We will seek records from patient's prior scope I have re-examined the patient. There are no clinical changes since date of exam. Patient denies any interval changes to her health history. She denies any changes to her bowel movements. She does confirm successful completion of her prep and states that her output is completely clear at this point without sediment. Her only complaint this morning is for a headache since she has not eaten. She denies any questions I have today's procedure. Therefore we will plan to proceed with screening colonoscopy under local MAC as described above.
[2022-06-05 10:44] VITALS: BP 153/130; BP 188/82; PULSE 70; RESP 16; TEMP 36.5; O2SAT 99
--- NOTE | 2022-06-05 10:48 | OP.COLON_ITS ---
Patient Name: Kacey Sandoval Procedure Date: 06/05/2022 9:56 AM Date of : 1955 Age: 66 Procedure: Colonoscopy Indications: Screening for colorectal malignant neoplasm Providers: Francisco Javier Pate MD Medicines: See the Anesthesia note for documentation of the administered medications Patient Profile: Refer to note in patient chart for documentation of history and physical. Last Colonoscopy: more than 10 years ago. Complications: No immediate complications. Estimated blood loss: None. Procedure: Pre-Anesthesia Assessment: - The heart rate, respiratory rate, oxygen saturations, blood pressure, adequacy of pulmonary ventilation, and response to care were monitored throughout the procedure. After I obtained informed consent, the scope was passed under direct vision. Throughout the procedure, the patient's blood pressure, pulse, and oxygen saturations were monitored continuously. The Colonoscope was introduced through the anus and advanced to the cecum, identified by its appearance. The colonoscopy was somewhat difficult due to a tortuous colon. Successful completion of the procedure was aided by using manual pressure. The patient tolerated the procedure fairly well. The quality of the bowel preparation was adequate to identify polyps. Scope In: 10:09:47 AM Scope Withdrawal Time 0 hours 17 minutes 21 seconds Scope Out: 10:38:25 AM Total Procedure Duration Time 0 hours 28 minutes 38 seconds Findings: The perianal and digital rectal examinations were normal. Pertinent negatives include normal sphincter tone. Many small and large-mouthed diverticula were found in the sigmoid colon and ascending colon. No biopsies or other specimens were collected for this exam. The exam was otherwise without abnormality on direct and retroflexion views. Impression: - Diverticulosis in the sigmoid colon and in the ascending colon. No specimens collected. - The examination was otherwise normal on direct and retroflexion views. Recommendation: - Discharge patient to home (via wheelchair). - High fiber diet today. - Use original regular Metamucil one tablespoon PO daily today. - Repeat colonoscopy in 10 years for screening purposes. - Telephone my office for study results in 1 week. - Continue present medications. Procedure Code(s): --- Professional --- G0121, Colorectal cancer screening; colonoscopy on individual not meeting criteria for high risk Diagnosis Code(s): --- Professional --- Z12.11, Encounter for screening for malignant neoplasm of colon K57.30, Diverticulosis of large intestine without perforation or abscess without bleeding CPT copyright 2017 [employer]. All rights reserved. The codes documented in this report are preliminary and upon welder fitter review may be revised to meet current compliance requirements. Francisco Javier Pate MD 06/05/2022 10:47:53 AM This report has been signed electronically. Number of Addenda: 0 Note Initiated On: 06/05/2022 9:56 AM
--- NOTE | 2022-06-05 10:49 | OP.CCLET_ITS ---
06/05/2022 Weston Cárdenas [address] [place] [address] Re : Colonoscopy procedure for Kacey Sandoval Dear Dr. Cárdenas This procedure was performed on May. My impressions and recommendations are as follows: Impressions : - Diverticulosis in the sigmoid colon and in the ascending colon. No specimens collected. - The examination was otherwise normal on direct and retroflexion views. Recommendations : - Discharge patient to home (via wheelchair). - High fiber diet today. - Use original regular Metamucil one tablespoon PO daily today. - Repeat colonoscopy in 10 years for screening purposes. - Telephone my office for study results in 1 week. - Continue present medications. My findings are described in the full procedure note, which is enclosed. If I can be of further assistance, please feel free to contact me at Doctor phone number(s): , Work: . Sincerely, Francisco Javier Pate MD 06/05/2022 10:47:53 AM This report has been signed electronically.
[2022-06-05 10:50] VITALS: BP 141/68; BP 188/82; PULSE 68; RESP 16; O2SAT 100
[2022-06-05 10:55] VITALS: BP 137/109; BP 188/82; PULSE 65; RESP 16; O2SAT 97
[2022-06-05 11:00] VITALS: BP 144/126; BP 188/82; PULSE 67; RESP 16; TEMP 36.8; O2SAT 92
[2022-06-05 11:15] VITALS: BP 188/82
== END 2022-06-05 11:27 | disposition home or self-care (01) ==
LOC: EN 08:41 → AC 08:42
PROVIDERS: PCP Family Medicine; Referring Provider Family Medicine; Visit Provider Surgery
PROC: 0DJD8ZZ Inspection of Lower Intestinal Tract, Via Natural or Artificial Opening Endoscopic (ICD-10-PCS; CPT 45378; principal; 2022-06-05 09:55)
DX: Z12.11 Encounter for screening for malignant neoplasm of colon (principal); K21.9 Gastro-esophageal reflux disease without esophagitis; R51.9 Headache, unspecified; Z80.0 Family history of malignant neoplasm of digestive organs; K57.30 Diverticulosis of large intestine without perforation or abscess without bleeding
CPT/HCPCS: G0121; J7120; J2405

== ENCOUNTER → 2022-06-17 | Outpatient (CLI) | payer MEDICARE, OTHER, SELFPAY ==
[2022-06-17 15:28] LABS: Absolute Lymphocyte Count 2.84 X10^3/uL (0.83-4.51); Absolute Neutrophil Count 5.1 X10^3/uL (2.0-7.7); Basophil# 0.07 X10^3/uL; Basophil% 0.8 % (0-1); Eosinophils% 2.2 % (0-5); Hematocrit 42.6 % (37-47); Hemoglobin 13.9 g/dL (12.0-15.0); Lymphocyte # 2.84 X10^3/ul (0.83-4.51); Lymphocyte % 31.8 % (19-41); Mean Corp Hgb Conc 32.6 g/dL (32-36); Mean Corpuscular Volume 94.9 fL (81-99); Mean Platelet Vol. 9.9 fl (6.2-12.0); Monocyte% 7.8 % (0-10); NRBC Flagged by Analyzer 0 % (0-5); Neutrophil # 5.11 X10^3/uL (2.7-7.7); Neutrophil % 57.2 % (47-70); Platelet Count 352 K/mm3 (150-450); RBC Distribution Width CV 12.5 % (11.6-14.6); RBC Distribution Width SD 43.3 fl (35.1-43.9); Red Blood Count 4.49 M/mm3 (4.2-5.4); White Blood Count 8.9 K/mm3 (4.4-11.0)
[2022-06-17 15:55] LABS: AST(SGOT) 19 U/L (15-37); Alanine Aminotransfer ALT/SGPT 27 U/L (13-56); Albumin, Serum 3.9 g/dL (3.2-5.0); Alkaline Phosphatase 71 U/L (45-117); Anion Gap 6 (5-15); BUN 19 mg/dL (7-18); BUN/Creat Ratio 11.3 RATIO (10-20); CPK Total, Creatine Kinase 22 U/L (26-192); CRP 8.49 mg/L (0.0-3.0); Calcium,Total 9.5 mg/dL (8.5-10.1); Chloride 101 mmol/L (98-107); Creatinine, Serum 1.68 mg/dL (0.55-1.02); EST Glomerular Filtration Rate 32 mL/min (>60); Est Glom Filt Rate - Afr Amer 39 mL/min (>60); Globulin 3.9 g/dL (2.2-4.2); Glucose 105 mg/dL (74-106); Potassium 3.9 mmol/L (3.5-5.1); Protein, Total 7.8 g/dL (6.4-8.2); Sodium Level 137 mmol/L (136-145); T4 Free Direct 1.18 ng/dL (0.76-1.46); Thyroid Stim Hormone (TSH) 3.55 uIU/mL (0.358-3.74)
[2022-06-17 15:58] LABS: Erythrocyte Sedimentation Rate 17 mm/hr (0-30)
[2022-06-17 19:35] LABS: Color, Urine Yellow (Yellow); Glucose, Dipstick Normal (Normal); Ketone-Dipstick Negative (Negative); Leukocyte Esterase-Dipstick 100 /ul (Negative); Nitrite-Dipstick Positive (Negative); Occult Blood-Urine Negative /ul (Negative); Protein-Dipstick 15 mg/dl (Negative); Urine Bilirubin Dipstick Negative (Negative); Urine Clarity Clear (Clear); Urine Urobilinogen Normal (Normal)
== END | disposition home or self-care (01) ==
LOC: BFHLAB 13:35
PROVIDERS: PCP Family Medicine; Visit Provider Family Medicine
DX: R79.89 Other specified abnormal findings of blood chemistry (principal); R61 Generalized hyperhidrosis; R79.82 Elevated C-reactive protein (CRP); R53.83 Other fatigue; M79.10 Myalgia, unspecified site
CPT/HCPCS: 36415; 80053; 81002; 82550; 84439; 84443; 85025; 85652; 86140

== ENCOUNTER → 2022-07-04 | Outpatient (CLI) | payer MEDICARE, OTHER, SELFPAY ==
[2022-07-04 16:02] LABS: Color, Urine Yellow (Yellow); Glucose, Dipstick Normal (Normal); Ketone-Dipstick Negative (Negative); Leukocyte Esterase-Dipstick Negative /ul (Negative); Nitrite-Dipstick Negative (Negative); Occult Blood-Urine Negative /ul (Negative); Protein-Dipstick Negative (Negative); Urine Bilirubin Dipstick Negative (Negative); Urine Clarity Clear (Clear); Urine Urobilinogen Normal (Normal)
[2022-07-04 16:40] LABS: Anion Gap 6 (5-15); BUN 16 mg/dL (7-18); BUN/Creat Ratio 11.9 RATIO (10-20); Calcium,Total 8.8 mg/dL (8.5-10.1); Chloride 98 mmol/L (98-107); Creatinine, Serum 1.35 mg/dL (0.55-1.02); EST Glomerular Filtration Rate 42 mL/min (>60); Est Glom Filt Rate - Afr Amer 50 mL/min (>60); Glucose 87 mg/dL (74-106); Phosphorus 3.6 mg/dL (2.5-4.9); Potassium 3.5 mmol/L (3.5-5.1); Sodium Level 135 mmol/L (136-145)
[2022-07-07 15:01] LABS: H.Pylori Breath Test Negative (Negative)
== END | disposition home or self-care (01) ==
LOC: LAB 15:03
PROVIDERS: PCP Family Medicine; Visit Provider Family Medicine
DX: N39.0 Urinary tract infection, site not specified (principal); N17.9 Acute kidney failure, unspecified; R10.13 Epigastric pain
CPT/HCPCS: 36415; 80048; 81002; 83013; 84100; 87086; 87088

== ENCOUNTER → 2022-08-29 | Outpatient (CLI) | payer MEDICARE, OTHER, SELFPAY ==
--- NOTE | 2022-08-29 07:06 | MRI_ITS ---
STUDY: MRI RIGHT SHOULDER REASON FOR EXAM: Female, 67 years old. RT SHOULDER IMPINGEMENT, pain. TECHNIQUE: Standardized fat and water weighted pulse sequences were obtained in all 3 orthogonal planes. COMPARISON: X-ray September 24, 2021 FINDINGS: There is supraspinatus tendinosis with tendon thickening, but without a demonstrated tendon tear. Normal infraspinatus tendon. Normal subscapularis tendon. Normal teres minor tendon. Normal supraspinatus muscle. Normal infraspinatus muscle. Normal subscapularis muscle. Normal teres minor muscle. There is moderate osteoarthritis of the glenohumeral articulation. There is small joint effusion. Normal humeral head and visualized proximal humerus. Normal biceps labral complex. Normal intracapsular long biceps tendon. . There is tear of the superior labrum, series 5 images 06/12 through . Normal capsulo- ligamentous complex. Normal rotator interval. There is hypertrophic osteoarthritis of the acromioclavicular articulation with impingement upon the musculotendinous junction of the supraspinatus muscle. There is a Type II morphology (curved), with a neutral orientation. There is no subacromial-subdeltoid bursal fluid. Normal visualized coracohumeral and coracoacromial ligaments. Normal quadrilateral space. Normal axillary space. Normal deltoid muscle. Normal trapezius muscle. MRI/Upper Ext Joint Only(Routine) IMPRESSION: Tendinosis of the supraspinatus. No rotator cuff tear. SLAP lesion and tear of the superior labrum. Glenohumeral arthrosis. Acromioclavicular arthrosis with impingement. Electronically Signed: Hever Cameron MD at 11:45 EST ,
== END | disposition home or self-care (01) ==
LOC: MRI 06:42
PROVIDERS: PCP Family Medicine; Referring Provider Student in an Organized Health Care Education/Training Program; Visit Provider Student in an Organized Health Care Education/Training Program
DX: S46.012D Strain of muscle(s) and tendon(s) of the rotator cuff of left shoulder, subsequent encounter (principal)
CPT/HCPCS: 73221

== ENCOUNTER → 2022-10-15 | Outpatient (CLI) | payer MEDICARE, OTHER, SELFPAY ==
[2022-10-15 13:23] LABS: Anion Gap 7 (5-15); BUN 27 mg/dL (7-18); BUN/Creat Ratio 18.9 RATIO (10-20); Calcium,Total 9.6 mg/dL (8.5-10.1); Chloride 104 mmol/L (98-107); Creatinine, Serum 1.43 mg/dL (0.55-1.02); EST Glomerular Filtration Rate 39 mL/min (>60); Est Glom Filt Rate - Afr Amer 47 mL/min (>60); Glucose 96 mg/dL (74-106); Potassium 4.1 mmol/L (3.5-5.1); Sodium Level 139 mmol/L (136-145)
== END | disposition home or self-care (01) ==
LOC: BFHLAB 09:02
PROVIDERS: PCP Family Medicine; Visit Provider Family Medicine
DX: Z51.81 Encounter for therapeutic drug level monitoring (principal)
CPT/HCPCS: 36415; 80048

== ENCOUNTER → 2022-11-25 | Outpatient (CLI) | payer MEDICARE, OTHER, SELFPAY ==
[2022-11-25 17:51] LABS: Absolute Lymphocyte Count 2.63 X10^3/uL (0.83-4.51); Absolute Neutrophil Count 6.5 X10^3/uL (2.0-7.7); Basophil# 0.05 X10^3/uL; Basophil% 0.5 % (0-1); Eosinophil# 0.09 X10^3/uL; Eosinophils% 0.9 % (0-5); Hematocrit 42.3 % (37-47); Hemoglobin 13.8 g/dL (12.0-15.0); Lymphocyte # 2.63 X10^3/ul (0.83-4.51); Mean Corp Hgb Conc 32.6 g/dL (32-36); Mean Corpuscular Hgb 31.4 pg (27.0-32.0); Mean Corpuscular Volume 96.1 fL (81-99); Mean Platelet Vol. 9.7 fl (6.2-12.0); Monocyte# 0.79 X10^3/uL; Monocyte% 7.8 % (0-10); NRBC Flagged by Analyzer 0 % (0-5); Neutrophil # 6.49 X10^3/uL (2.7-7.7); Neutrophil % 64.3 % (47-70); Platelet Count 315 K/mm3 (150-450); RBC Distribution Width CV 12.7 % (11.6-14.6); White Blood Count 10.1 K/mm3 (4.4-11.0)
[2022-11-25 18:36] LABS: ALB/GLOB Ratio 1.1 RATIO (0.9-2.4); AST(SGOT) 17 U/L (15-37); Alanine Aminotransfer ALT/SGPT 26 U/L (13-56); Albumin, Serum 3.8 g/dL (3.2-5.0); Alkaline Phosphatase 77 U/L (45-117); Anion Gap 3 (5-15); BUN 23 mg/dL (7-18); BUN/Creat Ratio 18.1 RATIO (10-20); Calcium,Total 9.2 mg/dL (8.5-10.1); Chloride 101 mmol/L (98-107); Creatinine, Serum 1.27 mg/dL (0.55-1.02); EST Glomerular Filtration Rate 45 mL/min (>60); Est Glom Filt Rate - Afr Amer 54 mL/min (>60); Globulin 3.4 g/dL (2.2-4.2); Glucose 93 mg/dL (74-106); Lipase 144 U/L (73-393); Potassium 3.8 mmol/L (3.5-5.1); Protein, Total 7.2 g/dL (6.4-8.2); Sodium Level 134 mmol/L (136-145)
== END | disposition home or self-care (01) ==
LOC: BFHLAB 16:25
PROVIDERS: PCP Family Medicine; Referring Provider Family Medicine; Visit Provider Family Medicine
DX: R10.9 Unspecified abdominal pain (principal)
CPT/HCPCS: 36415; 80053; 83690; 85025

== ENCOUNTER 2022-12-15 12:30 | Day surgery (SDC) | payer MEDICARE, OTHER, SELFPAY ==
--- NOTE | 2022-12-15 | GASB_PTH ---
PATIENT: YULISA ARCEO LOC: EN U#:[id number] AGE/SX: 67/F ROOM: RE12/15/[address]: Dr. Francisco Javier Pate MD : 1955 BED: DIS: 12/15/2022 SPEC #: [id number] RECD: 12/15/22 14:50 STATUS: TERESA BOTELLO #: [id number] CHEYANNE: 12/15/22 00:[address]: Francisco Javier Pate DEPT: SURGICAL PATHOLOGY RECD BY: Tanmay Fischer ENTERED: 12/16/22 09:34 SP TYPE: Gastric Bx OTHR DR: Dr. Weston Cárdenas DO Tissues: A - Gastric mucous membrane B - Stomach, NOS C - Gastric mucous membrane D - Esophageal mucous membrane Procedures: Special Stain Group II Surgery Specimen Level IV Alcian Blue/PAS (control) HEADER OPERATION: EGD ([facility]), biopsy PRE-OP DIAGNOSIS: Postprandial epigastric pain TISSUE SUBMITTED: A ? Antrum biopsy for histo and H. pylori, B ? Lesser curvature polyp biopsy, C - Gastroesophageal junction biopsy, D ? Middle third esophageal plaque biopsy MICROSCOPIC DIAGNOSIS A. Gastric antrum, biopsy: Chronic gastritis. See comment. B. Lesser curvature stomach polyp, biopsy: Fundic gland polyp. C. Gastroesophageal junction, biopsy: Chronic inflammation. No evidence of goblet cell metaplasia. See comment. D. Middle third of esophagus, biopsy: Minimal chronic inflammation. AM:nikhil 12/17/2022 COMMENT A. The results of immunohistochemistry for Helicobacter pylori will be reported separately ([id number]). C. Alcian blue/PAS stain with matched control supports the above diagnosis. MICROSCOPIC DESCRIPTION Slides are reviewed. GROSS DESCRIPTION A - Received in fixative is one container labeled with the patient's name and designated gastric antrum. The specimen consists of two irregular fragments of light ramos soft tissue that in aggregate measure 0.6 x 0.3 x 0.1 cm. The specimen is totally submitted in one cassette. B - Received in fixative is one container labeled with the patient's name and designated lesser curvature polyp. The specimen consists of one irregular fragment of light ramos soft tissue that measures 0.5 x 0.5 x 0.1 cm. The specimen is totally submitted in one cassette. C - Received in fixative is one container labeled with the patient's name and designated GE junction. The specimen consists of one irregular fragment of light ramos soft tissue that measures 0.5 x 0.3 x 0.1 cm. The specimen is totally submitted in one cassette. D - Received in fixative is one container labeled with the patient's name and designated mid third esophagus plaque biopsy. The specimen consists of one irregular fragment of light ramos soft tissue that measures 0.6 x 0.2 x <0.1 cm. The specimen is totally submitted in one cassette. / AM:nikhil 12/16/2022 TC:3 CPT: 19021 x4, 02045
[2022-12-15] MEDS: Lactated Ringers 1,000 ML 15 ML IV (13:10)
[2022-12-15 13:11] VITALS: BP 151/67; PULSE 73; RESP 18; TEMP 36.4; O2SAT 97; BMI 35.6
--- NOTE | 2022-12-15 14:00 | IMM_PTH ---
PATIENT: YULISA ARCEO LOC: EN U#:[id number] AGE/SX: 67/F ROOM: RE12/15/[address]: Dr. Francisco Javier Pate MD : 1955 BED: DIS: 12/15/2022 SPEC #: [id number] RECD: 12/16/22 13:20 STATUS: TERESA REEdward #: [id number] CHEYANNE: 12/15/22 14:[address]: Francisco Javier Pate DEPT: IMMUNOHISTOCHEMISTRY RECD BY: Antonia Reeves ENTERED: 12/16/22 13:21 SP TYPE: IMMUNO OTHR DR: Dr. Weston Cárdenas, Tissues: A - Stomach, NOS Procedures: H Pylori (initial) PHYSICIAN & INSTITUTION [place] [id number] SPECIMEN INFORMATION: Tissue Source: A ? Antrum biopsy Clinical Info: Postprandial epigastric pain Specimen Number: [id number] CPT code: 51991 METHODOLOGY: Deparaffinized sections of prefer/formalin-fixed tissue or PAP/DQ stained slides are incubated with monoclonal/polyclonal antibodies/oligonucleotide probes. Localization is made via biotin free immunoperoxidase method. Appropriate controls are performed and reacted as expected. Results on target cell population are indicated in the following table: RESULTS: ANTIBODY / CLONE RESULT Block A H Pylori (polyclonal) negative These tests were developed and their performance characteristics determined by [facility]. They may not have been cleared or approved by the U.S. Food and Drug Administration. The FDA has determined that such clearance or approval is not necessary. The above immunohistochemical/dualISH markers are ordered and reviewed by the Pathologist. INTERPRETATION: A. Antrum, biopsy: Negative for Helicobacter pylori organisms. AM:nikhil 12/17/2022
--- NOTE | 2022-12-15 14:15 | HP.PCM_ITS ---
History and Physical Date of Admission: 12/15/22 Date of Service:? 12/09/22 MR#: [id number] Acct: [id number] Name:YULISA NATHAN Rep #: [id number] : 1955 ? ? Provider: Dr. Francisco Javier Pate MD Age/Sex:? 67/F ? ? [place] [facility] [place]: Signed Intake Vital Signs ? 06/05/2208:57 12/09/2312:39 Height 5 ft 4 in 5 ft 4 in Weight: ? 210 lb BMI ? 36.0 BP ? 177/86 H Blood Pressure Location ? Rt brachial Position ? Sitting Respiration ? 17 Pulse ? 70 Pulse Source ? Monitor Temp ? 96.3 F L Temp Source ? Temporal Pulse Oximetry (%) ? 99 Oxygen Delivery Method ? room air Intake Visit Reasons:?Abdominal Pain & Epic gastric pain Chief Complaint: abdominal pain and epi gastric pain Is patient in pain?: No Allergies Sulfa (Sulfonamide Antibiotics) Allergy (Verified 12/09/22 13:41) Hives Medications trazodone 50 mg tablet 150 mg PO QHS 07/23/13 [History Confirmed 12/09/22] sertraline 25 mg tablet (Zoloft) 25 mg PO QHS 04/21/18 [History Confirmed 12/09/22] bupropion HCl 300 mg 24 hr tablet, extended release 300 mg PO DAILY 02/24/19 [History Confirmed 12/09/22] hydrocortisone 20 mg tablet 10 mg PO TID 04/30/19 [History Confirmed 12/09/22] albuterol sulfate 2.5 mg/3 mL (0.083 %) solution for nebulization 2.5 mg (3 mL) inhalation Q4H PRN #25 vials 05/31/19 [Rx Confirmed 12/09/22] acyclovir 400 mg tablet 400 mg PO DAILY PRN Cold Sores 09/02/21 [History Confirmed 12/09/22] gabapentin 600 mg tablet 300 mg PO BID 09/02/21 [History Confirmed 06/05/22] multivitamin (Daily Multi-Vitamin tablet) 1 tab PO DAILY 09/02/21 [History Confirmed 12/09/22] pantoprazole 40 mg tablet,delayed release 40 mg PO DAILY 09/02/21 [History Confirmed 12/09/22] ascorbic acid (vitamin C) 1,000 mg capsule 1 g PO DAILY 04/23/22 [History Confirmed 12/09/22] vitamin B complex 1 tab PO DAILY 04/23/22 [History Confirmed 12/09/22] cholecalciferol (vitamin D3) 10 mcg (400 unit) capsule (Vitamin D3) 10 mcg PO DAILY 06/03/22 [History Confirmed 12/09/22] famotidine 40 mg tablet 40 mg PO DAILY 12/09/22 [History Confirmed 12/09/22] PFSH Medical History? Adrenal insufficiency Anxiety Anxiety and depression Arthritis Cardiology follow-up encounter Chronic cough Chronic kidney disease Depression Fibromyalgia GERD (gastroesophageal reflux disease) History of echocardiogram History of pulmonary embolism History of steroid therapy History of stress test History of unilateral nephrectomy Hyperlipidemia Hypertension Hypothyroidism Non-rheumatic tricuspid valve insufficiency Non-smoker Nonrheumatic mitral (valve) insufficiency Pulmonary embolism Secondary pulmonary arterial hypertension Surgical History? H/O foot surgery H/O reduction mammoplasty History of bilateral knee replacement History of hysterectomy History of right and left heart catheterization (08/13/15) History of tonsillectomy Status post uvulopalatopharyngoplasty Family History? Mother?? Myocardial infarction ?? ? age 67 Heart disease ?? ? CHF, [place] Depression DiabetesFather?? Asthma Arthritis Heart disease Diabetes HypertensionBrother?? Kidney diseaseGrandmother Diabetes Colon cancer CVA (cerebral vascular accident)Aunt DiabetesUncle DiabetesOther Bowel disease Social History? Smoking Status:? Never smoker alcohol intake:? current details:? occasionally substance use type:? does not use frequency:? 3-4 times per week HPI HPI HPI: Patient is a 67-year-old female who is known to me through a request for colonoscopy that was completed June 05, 2022 presents for complaints of upper abdominal pain over the past several months.? They are referred for surgical consultation from Dr. Weston Cárdenas.? Patient reports that these problems have been present the last several months, but have improved somewhat in their intensity since adding famotidine and Zofran to her usual medication intake.? She states when the pain first began it occurred every day and anytime she ate within 5 minutes of that eating.? She described the pain as a character like her stomach was on fire or alternatively like it was going to blow up (referring to her stomach).? She denies any particular trigger foods, but states the symptoms were present even after trying to maintain a bland diet.? This pain was associated with some nausea and early on some vomiting, but that gradually abated.? She denies any associated bloating.? She denies any reflux or heartburn symptoms as well.? She does report that she use meloxicam x2 weeks after a biceps surgery and that her last use of this medication was 1 month ago.? She reports that she was careful with the use of this medication?taking it only with food and limiting its duration to only 2 weeks as she only has 1 kidney and has to be mindful of her use of NSAIDs in light of this fact.? She states that she has been taking omeprazole 40 mg every day for the last 6 to 7 years and did not change this throughout her experience of these discomfort.? She reports trialing Carafate, but found that this seemed to make her stomach hurt worse.? She questions whether any of this may be related to her gallbladder and also admits that her anxiety and panic attacks have been bad and she is trying to rule out this being the cause of her symptoms as well. ROS General General: No weight change, appetite, colon cancer, breast cancer or weakness HEENT HEENT: No difficulty swallowing, eye injury, eye surgery, swollen glands or hoarseness Endo Endocrine: No thyroid disease, diabetes mellitus, thyroid cancer, Hair loss, heat intolerance or cold intolerance Skin Skin: No rash or changing moles Musc Musculoskeletal: Yes arthritis; No back problems, rheumatoid arthritis, gout or joint pain Cardio Cardiovascular: Yes murmur; No pacemaker, heart disease, atrial fibrillation, high blood pressure, heart attack, heart stent, palpitations, shortness of breat with exertion or chest pain Psych Psychiatric: Yes depression and anxiety; No hearing voices Resp Respiratory: No shortness of breath, No sleep apnea, Yes cough, No COPD, No asthma, No emphysema and No wheezing Gastro Gastrointestinal: Yes abdominal pain, Yes nausea or vomiting, No diarrhea, No constipation, No blood in stool, Yes acid reflux, No hemorrhoids, No ulcers, No gallbladder problem and No black,tarry stools Flo Hematologic: No blood thinners, No blood disorders, No bleeding, No anemia and Yes blood clots Neuro Neurologic: No system reviewed and no additional complaints, except as documented, No as per HPI, No abnormal gait, No abnormal hearing, No abnormal movements, No abnormal speech, No behavioral changes, No burning sensations, No confusion, No convulsions, No disequilibrium, No dizziness, No localized weakness, No frequent falls, No headache(s), No lack of coordination, No loss of vision, No memory loss, No numbness, No other visual disturbances, No radicular pain, No restless legs, No sensory deficit, No syncope, No tingling, No tremor(s), No weakness and No other Exam Const General: cooperative and anxious Nutritional Appearance: obese Orientation: alert, awake and oriented x3 Other: Patient appears on edge with chronicity of her symptoms GI Other: Nondistended, chronic and well?healed right subcostal incision.? Patient has involuntary guarding with palpation of her lower abdomen that was not reproducible.? She also had tenderness with palpation of her epigastrium and left upper quadrant. Assessment and Plan Assessment and Plan (1) Postprandial epigastric pain: ?Status:?Acute ?Comment: Is a 67-year-old female who presents with several months of postprandial epigastric discomfort.? She notes that this pain is responded somewhat to the use of PPI, Zofran, and famotidine.? Unfortunately she experienced exacerbation of her symptoms when trialing Carafate.? On exam, patient has persistent epigastric tenderness with palpation, but had some shifting and voluntary guarding that was not necessarily reproducible.? Based on the general region of the patient's discomfort and her description of pain onset within 5 minutes of eating, I am suspicious for possible dyspepsia/peptic ulcer disease.? I have recommended patient begin using her PPI medication twice daily for a period of 2 weeks.? I will look to get her through a diagnostic EGD in short order to evaluate her for possible ulcer disease.? I will also plan for empiric biopsies for H. pylori.? Patient in agreement with these recommendations and wishes to proceed as soon as possible. ?Plan: ? Patient advised to assume twice daily dosing on PPI for the next 2 weeks ? Diagnostic EGD under local MAC at first mutually agreeable date. I have examined the patient and the H&P has been reviewed. There are no clinical changes since date of exam. Proceed to the endoscopy suite for diagnostic EGD under local MAC as discussed above.
[2022-12-15 14:45] VITALS: BP 151/67; BP 154/94; PULSE 84; RESP 16; TEMP 37; O2SAT 97
[2022-12-15 14:50] VITALS: BP 151/67; BP 157/90; PULSE 69; RESP 16; O2SAT 99
[2022-12-15 14:55] VITALS: BP 151/62; BP 151/67; PULSE 73; RESP 16; O2SAT 98
--- NOTE | 2022-12-15 14:55 | OP.EGD_ITS ---
Patient Name: Kacey Sandoval Procedure Date: 12/15/2022 1:31 PM Date of : 1955 Age: 67 Procedure: Upper GI endoscopy Indications: Epigastric abdominal pain, Suspected esophageal reflux Providers: Francisco Javier Pate MD Referring MD: Francisco Javier Pate MD Medicines: See the Anesthesia note for documentation of the administered medications Patient Profile: Refer to note in patient chart for documentation of history and physical. Complications: No immediate complications. Estimated blood loss: Minimal. Procedure: Pre-Anesthesia Assessment: - The heart rate, respiratory rate, oxygen saturations, blood pressure, adequacy of pulmonary ventilation, and response to care were monitored throughout the procedure. After obtaining informed consent, the endoscope was passed under direct vision. Throughout the procedure, the patient's blood pressure, pulse, and oxygen saturations were monitored continuously. The gastroscope was introduced through the mouth, and advanced to the second part of duodenum. The upper GI endoscopy was accomplished without difficulty. Scope In: 2:19:15 PM Scope Out: 2:38:36 PM Total Procedure Duration Time 0 hours 19 minutes 21 seconds Findings: The duodenal bulb, first portion of the duodenum and second portion of the duodenum were normal. No biopsies or other specimens were collected for this exam. Localized mildly erythematous mucosa without bleeding was found in the gastric antrum. Biopsies were taken with a cold forceps for Helicobacter pylori testing. Estimated blood loss was minimal. Multiple 7 mm pedunculated and sessile polyps with no bleeding and no stigmata of recent bleeding were found in the gastric body. Biopsies were taken with a cold forceps for histology. Estimated blood loss was minimal. The Z-line was irregular and was found 39 cm from the incisors. Biopsies were taken with a cold forceps for histology. A small hiatal hernia was present. No biopsies or other specimens were collected for this exam. White nummular lesions were noted in the middle third of the esophagus. Biopsies were taken with a cold forceps for histology. Impression: - Normal duodenal bulb, first portion of the duodenum and second portion of the duodenum. No specimens collected. - Erythematous mucosa in the antrum. Biopsied. - Multiple gastric polyps. Biopsied. - Z-line irregular, 39 cm from the incisors. Biopsied. - Small hiatal hernia. No specimens collected. - White nummular lesions in esophageal mucosa. Biopsied. Recommendation: - Discharge patient to home (via wheelchair). - Resume previous diet today. - Continue present medications. - Await pathology results. - Telephone my office for pathology results in 1 week. Procedure Code(s): --- Professional --- 40037, Esophagogastroduodenoscopy, flexible, transoral; with biopsy, single or multiple Diagnosis Code(s): --- Professional --- K31.89, Other diseases of stomach and duodenum K31.7, Polyp of stomach and duodenum K22.8, Other specified diseases of esophagus K44.9, Diaphragmatic hernia without obstruction or gangrene R10.13, Epigastric pain CPT copyright 2017 [employer]. All rights reserved. The codes documented in this report are preliminary and upon professional fee coder review may be revised to meet current compliance requirements. Francisco Javier Pate MD 12/15/2022 2:55:01 PM This report has been signed electronically. Number of Addenda: 0 Note Initiated On: 12/15/2022 1:31 PM
--- NOTE | 2022-12-15 14:56 | OP.CCLET_ITS ---
12/15/2022 Weston Cárdenas [address] [facility] [place] [address] Re : Upper GI endoscopy procedure for Kacey Sandoval Dear Dr. Cárdenas This procedure was performed on Thursday, December 15, 2022. My impressions and recommendations are as follows: Impressions : - Normal duodenal bulb, first portion of the duodenum and second portion of the duodenum. No specimens collected. - Erythematous mucosa in the antrum. Biopsied. - Multiple gastric polyps. Biopsied. - Z-line irregular, 39 cm from the incisors. Biopsied. - Small hiatal hernia. No specimens collected. - White nummular lesions in esophageal mucosa. Biopsied. Recommendations : - Discharge patient to home (via wheelchair). - Resume previous diet today. - Continue present medications. - Await pathology results. - Telephone my office for pathology results in 1 week. My findings are described in the full procedure note, which is enclosed. If I can be of further assistance, please feel free to contact me at Doctor phone number(s): , Work: . Sincerely, Francisco Javier Pate MD 12/15/2022 2:55:01 PM This report has been signed electronically.
[2022-12-15 15:00] VITALS: BP 136/76; BP 151/67; PULSE 70; RESP 16; TEMP 36.8; O2SAT 100
[2022-12-15 15:20] VITALS: BP 151/67
== END 2022-12-15 15:48 | disposition home or self-care (01) ==
LOC: EN 12:30 → AC 12:31
PROVIDERS: PCP Family Medicine; Referring Provider Surgery; Visit Provider Surgery
PROC: 0DJ08ZZ Inspection of Upper Intestinal Tract, Via Natural or Artificial Opening Endoscopic (ICD-10-PCS; CPT 43235; principal; 2022-12-15 13:55)
DX: K44.9 Diaphragmatic hernia without obstruction or gangrene (principal); K31.7 Polyp of stomach and duodenum; R10.816 Epigastric abdominal tenderness; R10.13 Epigastric pain; K31.89 Other diseases of stomach and duodenum; E03.9 Hypothyroidism, unspecified
CPT/HCPCS: 43239; 88305; 88313; 88342; J7120; J2405

== ENCOUNTER → 2022-12-30 | Outpatient (CLI) | payer MEDICARE, OTHER, SELFPAY ==
[2022-12-30 13:13] LABS: Cholesterol 266 mg/dL (200); High Density Lipoprotein 73 mg/dL; Triglycerides 112 mg/dL; Very Low Density Lipoprotein 22 mg/dL (5-40)
== END | disposition home or self-care (01) ==
LOC: BFHLAB 08:59
PROVIDERS: PCP Family Medicine; Referring Provider Family Medicine; Visit Provider Family Medicine
DX: E78.5 Hyperlipidemia, unspecified (principal)
CPT/HCPCS: 36415; 80061

== ENCOUNTER → 2023-02-04 | Outpatient (CLI) | payer MEDICARE, OTHER, SELFPAY ==
--- NOTE | 2023-02-04 10:57 | RAD_ITS ---
EXAM: XR CHEST, 2 VIEWS CLINICAL INDICATION: URI,SOB,COUGH URI,SOB,COUGH TECHNIQUE: Frontal and lateral views of the chest. COMPARISON: Chest x-ray 05/03/2021. FINDINGS: LUNGS AND PLEURAL SPACES: Unremarkable. No consolidation or edema. No pneumothorax. No effusion. HEART: Unremarkable. Cardiac silhouette not enlarged. MEDIASTINUM: Central airways and mediastinal contour are unremarkable. BONES/JOINTS: There are multilevel degenerative changes in the visualized spine. SOFT TISSUES: Unremarkable. VASCULATURE: There is atherosclerotic calcification of the aortic arch. RAD/Chest PA and Lateral IMPRESSION: No acute findings in the chest. Electronically Signed: Jeffry Mclaughlin MD at 5:01 EDT Reading Location ID and State: [facility] / [place] , Service support ,
== END | disposition home or self-care (01) ==
PROVIDERS: PCP Family Medicine; Referring Provider Family Medicine; Visit Provider Family Medicine
DX: R05.9 Cough, unspecified (principal); R06.02 Shortness of breath; J06.9 Acute upper respiratory infection, unspecified
CPT/HCPCS: 71046

== ENCOUNTER → 2023-04-09 | Outpatient (CLI) | payer MEDICARE, OTHER, SELFPAY ==
--- NOTE | 2023-04-09 14:55 | BI_ITS ---
MAMMOGRAPHY - BILATERAL SCREENING REASON FOR EXAM: Female, 67 years old. Routine annual screening examination. PERTINENT HISTORY: Non-contributory. Prior bilateral breast reduction surgery. TECHNIQUE: Digital bilateral breast gracia (3D mammographic acquisition) in the CC and MLO projections. 2-D mediolateral oblique (MLO) and craniocaudad (CC) views of both breasts were obtained. CAD: Full Field Digital Mammography with Computer Added Detection was performed. COMPARISON: Comparison is made with prior study dated August 13, 2021 and December 25, 2018. FINDINGS: Breast Composition: The breasts are almost entirely fatty. There are no dominant masses or suspicious calcifications. No other significant abnormalities are identified. There has been no significant change since the prior study. BI/SCRN MAMM (CAD)W/GRACIA BILAT IMPRESSION: Stable bilateral screening mammogram. Yearly follow-up mammogram recommended. (A) ASSESSMENT CATEGORY: BIRADS Category 1: Negative. A letter regarding these results will be sent to the patient by the facility within 30 days. Approximately 10% of breast cancers are not detected by mammography. A normal mammogram should not delay biopsy of a clinically suspicious abnormality. [id number] Electronically Signed: Wu Alicia MD at 9:16 EDT ,
--- NOTE | 2023-04-09 14:56 | BD_ITS ---
STUDY: DUAL ENERGY X-RAY ABSORPTIOMETRY / DXA REASON FOR EXAM: Female, 67 years old. V76.12ScreeningBONE DENSITY REASON FOR EXAM TECHNIQUE: Bone Mineral Density (BMD) measurements of lumbar spine and bilateral hips were obtained. COMPARISON: None. FINDINGS: Lumbar Spine (L1-L4): g/cm2 (0.915) / T-score (-1.3) / Z-score (0.7) Findings are suggestive of osteopenia with a low fracture risk. Left Femur Total: g/cm2 (0.813) / T-score (-1.1) / Z-score (0.3) Left Femoral Neck: g/cm2 (0.726) / T-score (-1.1) / Z-score (0.6) Right Femur Total: g/cm2 (0.824) / T-score (-1.0) / Z-score (0.4) Right Femoral Neck: g/cm2 (0.667) / T-score (-1.6) / Z-score (0.0) BD/Dexa Bone Density Study IMPRESSION: The patient is considered osteopenic as outlined below according to World Kaz Organization (WHO) criteria with a moderate fracture risk. Reference Information: The T-score is the number of standard deviations above or below the standard which is normal for young adults at their peak bone mineral density. The World Health Organization (WHO) interprets the T-scores as follows: Above -1 Normal bone density Between -1 and -2.5 Osteopenia Equal to / or below -2.5 Osteoporosis As a practical clinical guideline, osteopenia may be graded as follows: Mild -1 through -1.5 Moderate -1.6 through -2.0 Severe -2.1 through -2.4 The Z-score is the number of standard deviations above or below age-matched controls. A Z-score of less than -1.5 would be considered abnormal. References: 1. NIH Osteoporosis and Related Bone Diseases www osteo.org 2. International Society for Clinical Densitometry www iscd.org 3. National Osteoporosis Foundation www nof.org Electronically Signed: Wu Alicia MD at 14:18 EDT ,
== END | disposition home or self-care (01) ==
LOC: OPBD 14:53
PROVIDERS: PCP Family Medicine; Referring Provider Family Medicine; Visit Provider Family Medicine
DX: Z12.31 Encounter for screening mammogram for malignant neoplasm of breast (principal); M81.0 Age-related osteoporosis without current pathological fracture
CPT/HCPCS: 77063; 77067; 77080

== ENCOUNTER → 2023-05-23 | Outpatient (CLI) | payer MEDICARE, OTHER, SELFPAY ==
--- NOTE | 2023-05-23 09:04 | MRI_ITS ---
STUDY: MRI LEFT SHOULDER REASON FOR EXAM: Female, 67 years old. STRAIN OF MUSC/TEND ROTATOR CUFF LEFT SHOULDER TECHNIQUE: Standardized fat and water weighted pulse sequences were obtained in all 3 orthogonal planes. COMPARISON: None. FINDINGS: Slightly high riding humeral head. Diffuse thinning of the supinator is tendon with edematous signal and is insertion site on the greater tuberosity. A far anterior lateral undersurface tear of the supraspinatus tendon is also present measuring 5.4 mm in diameter. There is infraspinatus tendinosis with tendon attrition, but without a demonstrated infraspinatus tendon tear. Normal subscapularis tendon. Normal teres minor tendon. Normal supraspinatus muscle. Normal infraspinatus muscle. Normal subscapularis muscle. Normal teres minor muscle. Moderate to severe degenerative narrowing with cortical spurring at the medial inferior aspect of the humeral head. The intracapsular aspect elongated biceps tendon is completely torn and retracted into the upper arm. There is also 360 degree diffuse labral tearing and partial detachment. Normal capsulo- ligamentous complex. Normal rotator interval. There is mild osteoarthritis of the acromioclavicular articulation. There is a Type II morphology (curved), with a neutral orientation. There is no subacromial-subdeltoid bursal fluid. Normal visualized coracohumeral and coracoacromial ligaments. Normal quadrilateral space. Normal axillary space. Normal deltoid muscle. Normal trapezius muscle. MRI/Upper Ext Joint Only(Routine) IMPRESSION: 1. Complete tear of the intracapsular aspect elongated biceps tendon 2. Diffuse 360 degrees labral tearing 3. Partial tearing of the supraspinatus tendon and tendinosis Electronically Signed: Fei Castillo MD at 14:49 EDT Reading Location ID and State: [facility] / [place] , Service support ,
== END | disposition home or self-care (01) ==
LOC: MRI 08:59
PROVIDERS: PCP Family Medicine; Referring Provider Student in an Organized Health Care Education/Training Program; Visit Provider Student in an Organized Health Care Education/Training Program
DX: S46.012D Strain of muscle(s) and tendon(s) of the rotator cuff of left shoulder, subsequent encounter (principal)
CPT/HCPCS: 73221

== ENCOUNTER → 2023-07-13 | Outpatient (CLI) | payer MEDICARE, OTHER, SELFPAY ==
[2023-07-13 09:57] LABS: Absolute Lymphocyte Count 4.42 X10^3/uL (0.83-4.51); Absolute Neutrophil Count 5.9 X10^3/uL (2.0-7.7); Basophil# 0.08 X10^3/uL; Basophil% 0.7 % (0-1); Eosinophil# 0.51 X10^3/uL; Eosinophils% 4.3 % (0-5); Hematocrit 44.5 % (37-47); Lymphocyte # 4.42 X10^3/ul (0.83-4.51); Lymphocyte % 37.1 % (19-41); Mean Corp Hgb Conc 31.5 g/dL (32-36); Mean Corpuscular Hgb 30.1 pg (27.0-32.0); Mean Corpuscular Volume 95.7 fL (81-99); Mean Platelet Vol. 10.1 fl (6.2-12.0); Monocyte# 0.97 X10^3/uL; Monocyte% 8.1 % (0-10); NRBC Flagged by Analyzer 0 % (0-5); Neutrophil # 5.87 X10^3/uL (2.7-7.7); Neutrophil % 49.3 % (47-70); Platelet Count 316 K/mm3 (150-450); RBC Distribution Width CV 12.7 % (11.6-14.6); RBC Distribution Width SD 44.2 fl (35.1-43.9); Red Blood Count 4.65 M/mm3 (4.2-5.4); White Blood Count 11.9 K/mm3 (4.4-11.0)
[2023-07-13 10:18] LABS: Magnesium 2.2 mg/dL (1.6-2.6)
[2023-07-13 10:19] LABS: Albumin, Serum 3.3 g/dL (3.2-5.0); Anion Gap 6 (5-15); BUN 22 mg/dL (7-18); BUN/Creat Ratio 15.3 RATIO (10-20); Calcium,Total 8.7 mg/dL (8.5-10.1); Chloride 103 mmol/L (98-107); Creatinine, Serum 1.44 mg/dL (0.55-1.02); EST Glomerular Filtration Rate 39 mL/min (>60); Est Glom Filt Rate - Afr Amer 47 mL/min (>60); Glucose 85 mg/dL (74-106); Potassium 3.4 mmol/L (3.5-5.1); Sodium Level 140 mmol/L (136-145)
== END | disposition home or self-care (01) ==
LOC: PAT 08-19 12:16
PROVIDERS: Emergency Medicine; PCP Family Medicine; Referring Provider Student in an Organized Health Care Education/Training Program; Visit Provider Student in an Organized Health Care Education/Training Program
DX: Z01.818 Encounter for other preprocedural examination (principal); Z01.810 Encounter for preprocedural cardiovascular examination
CPT/HCPCS: 36415; 80048; 82040; 83735; 85025; 87081; 93005

== ENCOUNTER → 2023-07-15 | Outpatient (CLI) | payer MEDICARE, OTHER, SELFPAY ==
--- NOTE | 2023-07-15 08:05 | CT_ITS ---
STUDY: CT LEFT SHOULDER REASON FOR EXAM: Female, 67 years old. Left shoulder pain. RADIATION DOSAGE (If Supplied By Facility): CTDIvol = ( 25.38 ) mGy, DLP = ( 478.64 ) mGycm TECHNIQUE: The patient was scanned in a multi detector CT scanner. High resolution transaxial imaging was performed without the administration of intravenous contrast material. Sagittal and coronal images were reconstructed. Individualized dose optimization techniques were used for this CT. COMPARISON: None. FINDINGS: There is glenohumeral arthrosis with joint space narrowing, marginal osteophyte formation, and small subchondral cyst formation in the posterior glenoid. There is a 7 mm calcified loose body in the posterior axillary recess. There is a 1.3 cm ossified loose body in the subscapularis recess. There are multiple calcified loose bodies in the bicipital groove/extra-articular long biceps tendon sheath, measuring up to 1.0 cm in diameter. Intact glenoid rim, neck and visualized scapula. Intact humeral head, neck and tuberosities. There is an anchor in the anterior aspect of the humeral head. Normal coracoid process. Normal visualized lateral clavicle. There is minimal acromioclavicular arthrosis. There is a Type II morphology (curved), with a neutral orientation. Normal visualized muscles and soft tissue structures. CT/Extremity Upper without Contra IMPRESSION: Glenohumeral arthrosis with multiple loose bodies, as detailed above. Minimal acromioclavicular arthrosis. Electronically Signed: Jeff Morrissey MD at 11:17 EST ,
== END | disposition home or self-care (01) ==
LOC: CT 08:04
PROVIDERS: PCP Family Medicine; Referring Provider Student in an Organized Health Care Education/Training Program; Visit Provider Student in an Organized Health Care Education/Training Program
DX: M19.012 Primary osteoarthritis, left shoulder (principal)
CPT/HCPCS: 73200

== ENCOUNTER → 2023-07-30 | Outpatient (CLI) | payer MEDICARE, OTHER, SELFPAY ==
--- NOTE | 2023-07-30 09:13 | RAD_ITS ---
INDICATION: COUGH, WHEEZE EXAMINATION/TECHNIQUE: X-RAY - XR Chest 2 Views COMPARISON: 02/04/2023 FINDINGS: LINES/DEVICES: None. LUNGS: No consolidation, edema or effusion. No pneumothorax. MEDIASTINUM AND CARDIOVASCULAR STRUCTURES: Cardiac silhouette not enlarged. Central airways and mediastinal contour are unremarkable. BONES AND SOFT TISSUES: No acute changes. RAD/Chest PA and Lateral IMPRESSION: No radiographic evidence of acute cardiopulmonary disease. Electronically Signed: Attila Ahuja MD at 18:37 EST ,
== END | disposition home or self-care (01) ==
PROVIDERS: PCP Family Medicine; Referring Provider Family Medicine; Visit Provider Family Medicine
DX: R05.9 Cough, unspecified (principal); R06.2 Wheezing
CPT/HCPCS: 71046

== ENCOUNTER 2023-11-05 05:26 | Day surgery (SDC) | payer MEDICARE, OTHER, SELFPAY ==
[2023-10-15 10:29] LABS: Absolute Lymphocyte Count 3.46 X10^3/uL (0.83-4.51); Absolute Neutrophil Count 5.5 X10^3/uL (2.0-7.7); Basophil# 0.05 X10^3/uL; Basophil% 0.5 % (0-1); Eosinophil# 0.15 X10^3/uL; Eosinophils% 1.5 % (0-5); Hematocrit 42.5 % (37-47); Hemoglobin 13.6 g/dL (12.0-15.0); Lymphocyte # 3.46 X10^3/ul (0.83-4.51); Lymphocyte % 34.9 % (19-41); Mean Corpuscular Hgb 31.1 pg (27.0-32.0); Mean Platelet Vol. 9.9 fl (6.2-12.0); Monocyte# 0.69 X10^3/uL; NRBC Flagged by Analyzer 0 % (0-5); Neutrophil % 55.5 % (47-70); Platelet Count 252 K/mm3 (150-450); RBC Distribution Width CV 12.8 % (11.6-14.6); RBC Distribution Width SD 45.6 fl (35.1-43.9); Red Blood Count 4.38 M/mm3 (4.2-5.4); White Blood Count 9.9 K/mm3 (4.4-11.0)
[2023-10-15 11:16] LABS: Albumin, Serum 3.2 g/dL (3.2-5.0); Anion Gap 4 (5-15); BUN 23 mg/dL (7-18); BUN/Creat Ratio 19.2 RATIO (10-20); Calcium,Total 8.6 mg/dL (8.5-10.1); Chloride 107 mmol/L (98-107); EST Glomerular Filtration Rate 48 mL/min (>60); Est Glom Filt Rate - Afr Amer 57 mL/min (>60); Glucose 97 mg/dL (74-106); Sodium Level 141 mmol/L (136-145)
[2023-10-15 11:19] LABS: Hemoglobin A1c 5.7 % (3.8-5.6)
[2023-10-15 11:29] LABS: Magnesium 2.1 mg/dL (1.6-2.6)
[2023-11-05] VITALS (11 sets, daily range): BP systolic 127–212; BP diastolic 58–195; PULSE 60–76; RESP 16–18; TEMP 36.2–37.1; O2SAT 93–100; BMI 40.3
--- OUTSIDE RECORDS SUMMARY | 2023-11-05 05:44 | XMS RPT_ITS | CCD ---
Author Name Unknown Address [address] [facility] [address] [place] [address] Organization [facility] Care Team Providers Care General Utility Machine Operator Name Role Phone Adeline Yancey Unavailable Unavailable Mesha SILVERIO, Bhakti Martinez Unavailable Unavailable Woody Araiza Unavailable Ynes Alvarenga LPN Unavailable Unavailable MARQUITA SAHNI S Unavailable Unavailabl e MARQUITA SAHNI S Unavailable UnavailMAURA Lorenz Unavailable Unavailable MARQUITA SAHNI S Unavailable UnavailMAURA Lorenz Unavailable Unavailable MAURA RUTH Unavailable Unavailable Adeline Yancey Unavailable Unavailable Phil Cárdenas Primary Care Provider SOPHIA MA Attending Unavailable PHIL CÁRDENAS Primary Care Unavailable SOPHIA MA Admitting Unavailable Phil Cárdenas Primary Care Provider DR PHIL CÁRDENAS DO Primary Care Physician Allergies Allergy Classification Reported Allergen(s) Allergy Type Date of Onset Reaction(s) Facility (12 sources) ciprofloxacin drug allergy 09-02-19 11 patient had some itching[facility] Work Phone: (12 sources) lisinopril drug allergy 08-04-20 16 cough [facility] Work Phone: (6 sources) sulfacetamide drug allergy 03-08-20 15 [facility] Work Phone: (12 sources) sulfamethoxazole / trimethoprim drug allergy 09-17-19 11 body rash [facility] Work Phone: (6 sources) sulfaSALAzine drug allergy 03-08-20 15 vomitting [facility] Work Phone: (3 sources) Sulfonamides (Antibiotic); Translations: [Unknown] Propensity to adverse reactions to drug 02-17-20 20 [facility] (2 sources) Sulfonamides (Antibiotic); Translations: [sulfa drugs] Drug allergy vomiting, nausea [facility] Medications Current Medications Medication Drug Class(es) Dates Sig (Normalized) Sig (Original) acetaminophen 1000 mg oral tablet (1 source) Start: 10-23-2021 take 1 tablet by mouth once daily Tylenol Dose : 1,000 mg = 2 tab(s), Oral, TID, not to exceed 3000 mg/day, 0 Refill(s) Start Date: 10/23/21 Status: Ordered 24 hr buPROPion hydrochloride 300 mg extended release oral tablet (16 sources) Aminoketone Start: 08-27-2020 take 1 tablet by mouth every hour, then take 1 tablet by mouth once daily in the morning buPROPion 300 mg/24 hours (XL) oral tablet, extended release Dose : 300 mg = 1 tab(s), Oral, qAM, # 30 tab(s), 0 Refill(s) Start Date: 08/27/20 Status: Ordered Completed/Discontinued Medications Medication Drug Class(es) Dates Sig (Normalized) Sig (Original) acetaminophen 325 mg / HYDROcodone bitartrate 5 mg oral tablet (20 sources) Opioid Agonist Start: 02-17-2020 End: 02-17-2020 HYDROcodone-acetam inophen (NORCO) 5-325 mg per tablet 1 tablet Problems Active Problems Problem Classification Problem Date Documented Date Episodic/Chronic Chronic kidney disease (1 source) Chronic kidney disease; Translations: [Chronic kidney disease, unspecified] Onset: 10-22-2021 Chronic Chronic ulcer of skin (6 sources) Non-pressure chronic ulcer of skin of other sites with unspecified severity; Translations: [Non-pressure chronic ulcer of skin of other sites with unspecified severity] Onset: 11-28-2010 12-13-2010 Chronic Disorders of lipid metabolism (6 sources) Hyperlipidemia; Translations: [Hyperlipidemia, unspecified] Onset: 12-30-2010 12-30-2010 Chronic Esophageal disorders (3 sources) Gastroesophageal reflux disease; Translations: [Gastroesophageal reflux disease without esophagitis] Onset: 10-22-2021 11-20-2015 Chronic Heart valve disorders (9 sources) Mitral valve regurgitation; Translations: [Nonrheumatic mitral (valve) insufficiency] Onset: 07-23-2015 07-23-2015 Chronic Mood disorders (1 source) Major depressive disorder; Translations: [Major depressive disorder, single episode, unspecified] Onset: 10-22-2021 Chronic Other connective tissue disease (1 source) Artificial knee joint present; Translations: [Presence of unspecified artificial knee joint] Onset: 10-22-2021 Chronic Other connective tissue disease (2 sources) Fibromyositis 11-20-2015 Episodic Other endocrine disorders (6 sources) Iatrogenic Annemarie's disease; 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] Onset: 04-11-2015 04-13-2015 Chronic Other endocrine disorders (3 sources) Adrenal cortical hypofunction; Translations: [Unspecified adrenocortical insufficiency] Onset: 10-22-2021 11-20-2015 Chronic Other lower respiratory disease (3 sources) Dyspnea; Translations: [Shortness of breath] Onset: 03-08-2015 03-08-2015 Episodic Other lower respiratory disease (2 sources) Wheezing 11-20-2015 Episodic Other non-traumatic joint disorders (1 source) Pain in right hip joint; Translations: [Right hip pain] Other nutritional; endocrine; and metabolic disorders (16 sources) Body mass index (BMI) 37.0-37.9, adult; Translations: [Body mass index (BMI) 38.0-38.9, adult] Onset: 09-14-2015 03-11-2016 Chronic Other nutritional; endocrine; and metabolic disorders (1 source) Body mass index (BMI) 38.0-38.9, adult; Translations: [Body mass index (BMI) 38.0-38.9, adult] Onset: 11-07-2015 11-07-2015 Chronic Other nutritional; endocrine; and metabolic disorders (1 source) Obesity; Translations: [Obesity, unspecified] Onset: 09-14-2015 09-14-2015 Chronic Pulmonary heart disease (3 sources) Pulmonary hypertension; Translations: [Pulmonary hypertension, unspecified] Onset: 10-22-2021 11-20-2015 Chronic Pulmonary heart disease (9 sources) Pulmonary embolism; Translations: [H/O: pulmonary embolus] Onset: 01-22-2015 05-03-2015 Episodic Past or Other Problems Problem Classification Problem Date Documented Date Episodic/Chronic Abdominal hernia (12 sources) Umbilical hernia; Translations: [Incisional hernia without obstruction or gangrene] Onset: 11-21-2010 11-27-2010 Episodic Cardiac dysrhythmias (6 sources) Palpitations; Translations: [Palpitations] Onset: 12-30-2010 12-30-2010 Episodic Chronic obstructive pulmonary disease and bronchiectasis (5 sources) Bronchitis; Translations: [Bronchitis, not specified as acute or chronic] Onset: 03-04-2017 03-04-2017 Episodic Fracture of lower limb (18 sources) Nondisplaced fracture of lateral malleolus of left fibula, initial encounter for closed fracture; Translations: [Fracture of fibula] Onset: 09-02-2011 06-15-2015 Episodic Malaise and fatigue (12 sources) Fatigue; Translations: [Other fatigue] Onset: 12-30-2010 Resolved: 05-03-2015 05-03-2015 Episodic Nonmalignant breast conditions (12 sources) Pain of breast; Translations: [Hypertrophy of breast] Onset: 07-22-2010 06-01-2011 Episodic Nonspecific chest pain (12 sources) Chest pain, unspecified; Translations: [Chest pain, unspecified] Onset: 12-30-2010 Resolved: 05-03-2015 05-03-2015 Episodic Other aftercare (5 sources) Other residential (current) drug therapy; Translations: [Other terminal gauger (current) drug therapy] Onset: 12-30-2010 12-30-2010 Episodic Other circulatory disease (6 sources) Diastolic dysfunction; Translations: [Heart disease, unspecified] Onset: 07-23-2015 07-23-2015 Episodic Other connective tissue disease (16 sources) Plantar fasciitis; Translations: [Osteophyte, unspecified joint] Onset: 06-05-2015 09-25-2015 Episodic Other connective tissue disease (1 source) Prepatellar bursitis; Translations: [Prepatellar bursitis, left knee] Onset: 06-05-2015 06-15-2015 Episodic Other infections (6 sources) Personal history of Methicillin resistant Staphylococcus aureus infection; Translations: [Personal history of Methicillin resistant Staphylococcus aureus infection] Onset: 05-29-2011 06-01-2011 Episodic Other inflammatory condition of skin (6 sources) Other specified erythematous conditions; Translations: [Other specified erythematous conditions] Onset: 07-22-2010 07-31-2010 Episodic Other lower respiratory disease (11 sources) Cough; Translations: [Dyspnea] Onset: 03-08-2015 01-29-2017 Episodic Other non-traumatic joint disorders (20 sources) Impingement syndrome of shoulder region; Translations: [Pain in unspecified shoulder] Onset: 07-22-2010 12-03-2011 Episodic Other non-traumatic joint disorders (1 source) Pain in unspecified shoulder; Translations: [Pain in unspecified shoulder] 12-03-2011 Episodic Other non-traumatic joint disorders (1 source) Shoulder pain; Translations: [Pain in unspecified shoulder] Onset: 07-22-2010 07-31-2010 Episodic Other non-traumatic joint disorders (1 source) Knee pain; Translations: [Pain in left knee] Onset: 06-05-2015 06-05-2015 Episodic Other non-traumatic joint disorders (1 source) Osteophyte, unspecified joint; Translations: [Osteophyte, unspecified joint] Onset: 09-25-2015 09-25-2015 Episodic Other non-traumatic joint disorders (1 source) Ankle pain; Translations: [Pain in left ankle and joints of left foot] Onset: 09-25-2015 09-25-2015 Episodic Other upper respiratory infections (6 sources) Acute maxillary sinusitis; Translations: [Acute maxillary sinusitis, unspecified] Onset: 01-29-2017 01-29-2017 Episodic Residual codes; unclassified (1 source) Hypersomnia; Translations: [Hypersomnia, unspecified] Onset: 09-14-2015 09-14-2015 Episodic Residual codes; unclassified (1 source) Edema; Translations: [Edema, unspecified] Onset: 05-03-2015 05-03-2015 Episodic Spondylosis; intervertebral disc disorders; other back problems (12 sources) Neck pain; Translations: [Thoracic back pain] Onset: 07-22-2010 07-31-2010 Episodic Sprains and strains (6 sources) Sprains and strains of other specified sites of shoulder and upper arm; Translations: [Sprain of other specified sites of shoulder and upper arm] Onset: 09-02-2011 09-02-2011 Episodic Unclassified (16 sources) Family history of ischemic heart disease; Translations: [Edema] Onset: 04-09-2011 04-09-2011 Episodic Unclassified (1 source) Follow-up; Translations: [Follow-up] Onset: 09-23-2017 Results Test Name Value Interpretation Reference Range Facil ity Vital Signs Date Time Vital Sign Value Performing Clinician Facility 10-24-2021 07:26-0500 Body temperature 97.88 [degF] DR WOODY JENSEN MD [facility] 10-24-2021 07:26-0500 Diastolic blood pressure 82 mm[Hg] DR WOODY JENSEN MD [facility] 10-24-2021 07:26-0500 Heart rate 62 /min DR WOODY JENSEN MD [facility] 10-24-2021 07:26-0500 Reason For Taking VItal Signs DR WOODY JENSEN MD [facility] 10-24-2021 07:26-0500 Respiratory rate 18 /min DR WOODY JENSEN MD [facility] 10-24-2021 07:26-0500 Systolic blood pressure 164 mm[Hg] DR WOODY JENSEN MD [facility] 10-24-2021 04:00-0500 Diastolic blood pressure 71 mm[Hg] DR WOODY JENSEN MD [facility] 10-24-2021 04:00-0500 Mean blood pressure 96 mm[Hg] DR WOODY JENSEN MD [facility] 10-24-2021 04:00-0500 Reason For Taking VItal Signs DR WOODY JENSEN MD [facility] 10-24-2021 04:00-0500 Systolic blood pressure 145 mm[Hg] DR WOODY JENSEN MD [facility] 10-23-2021 19:20-0500 Body temperature 98.06 [degF] DR WOODY JENSEN MD [facility] 10-23-2021 19:20-0500 Diastolic blood pressure 69 mm[Hg] DR WOODY JENSEN MD [facility] 10-23-2021 19:20-0500 Heart rate 74 /min DR WOODY JENSEN MD [facility] 10-23-2021 19:20-0500 Respiratory rate 18 /min DR WOODY JENSEN MD [facility] 10-23-2021 19:20-0500 Systolic blood pressure 145 mm[Hg] DR WOODY JENSEN MD [facility] 10-23-2021 16:12-0500 Reason For Taking VItal Signs DR WOODY JENSEN MD [facility] 10-22-2021 23:15-0500 Mean blood pressure 91 mm[Hg] DR WOODY JENSEN MD [facility] 10-22-2021 15:03-0500 Body height 162.[address] WOODY JENSEN MD [facility] 10-22-2021 15:03-0500 Body weight 95.[address] WOODY JENSEN MD [facility] 10-22-2021 15:03-0500 Body weight 36.12 kg/m2 DR WOODY JENSEN MD [facility] 10-22-2021 14:44-0500 Diastolic Blood Pressure NBP [address] WOODY JENSEN MD [facility] 10-22-2021 14:44-0500 Systolic Blood Pressure NBP [address] WOODY JENSEN MD [facility] 10-22-2021 14:23-0500 Diastolic Blood Pressure NBP [address] WOODY JENSEN MD [facility] 10-22-2021 14:23-0500 Systolic Blood Pressure NBP [address] WOODY JENSEN MD [facility] 10-22-2021 14:11-0500 Diastolic Blood Pressure NBP [address] WOODY JENSEN MD [facility] 10-22-2021 14:11-0500 Systolic Blood Pressure NBP [address] WOODY JENSEN MD [facility] 10-22-2021 13:41-0500 Body temperature 95.54 [degF] DR WOODY JENSEN MD [facility] 10-22-2021 11:32-0500 Heart rate 64 /min DR WOODY JENSEN MD [facility] 10-22-2021 10:49-0500 Body height 162.[address] WOODY JENSEN MD [facility] 10-22-2021 10:49-0500 Body temperature 97.16 [degF] DR WOODY JENSEN MD [facility] 10-22-2021 10:49-0500 Body weight 95.[address] WOODY JENSEN MD [facility] 10-22-2021 10:49-0500 Heart rate 66 /min DR WOODY JENSEN MD [facility] 10-07-2021 09:20-0500 Body height 162.[address] WOODY JENSEN MD [facility] 10-07-2021 09:20-0500 Body weight 95.[address] WOODY JENSEN MD [facility] 10-07-2021 09:20-0500 diastolic 84 mm[Hg] DR WOODY JENSEN MD [facility] 10-07-2021 09:20-0500 Heart rate 64 /min DR WOODY JENSEN MD [facility] 10-07-2021 09:20-0500 Respiratory rate 18 /min DR WOODY JENSEN MD [facility] 10-07-2021 09:20-0500 systolic 142 mm[Hg] DR WOODY JENSEN MD [facility] 02-17-2020 21:43-0400 BMI (Body Mass Index) 30.55 kg/m2 [facility] 02-17-2020 21:43-0400 Body Temperature 98.49 [degF] [facility] 02-17-2020 21:43-0400 Body weight 80.74 kg [facility] 02-17-2020 21:43-0400 BP Diastolic 76 mm[Hg] [facility] 02-17-2020 21:43-0400 BP Systolic 164 mm[Hg] [facility] 02-17-2020 21:43-0400 Height 162.6 cm [facility] 02-17-2020 21:43-0400 Pulse (Heart Rate) 79 /min [facility] 02-17-2020 21:43-0400 Pulse Oximetry 99 % [facility] 02-17-2020 21:43-0400 Respiratory Rate 18 /min [facility] 04-01-2017 10:03-0400 BMI (Body Mass Index) 34.74 kg/m2 [facility] Work Phone: 04-01-2017 10:03-0400 BP Diastolic 40 mm[Hg] [facility] Work Phone: 04-01-2017 10:03-0400 BP Systolic 80 mm[Hg] [facility] Work Phone: 04-01-2017 10:03-0400 Height 166.37 cm [facility] Work Phone: 04-01-2017 10:03-0400 Pulse (Heart Rate) 76 /min [facility] Work Phone: 04-01-2017 10:03-0400 Respiratory Rate 20 /min [facility] Work Phone: 04-01-2017 10:03-0400 Weight 96.16 kg [facility] Work Phone: 03-04-2017 09:28-0400 BMI (Body Mass Index) 35.23 kg/m2 Woody [facility] Work Phone: 03-04-2017 09:28-0400 Body Temperature 97.9 [degF] Woody [facility] Work Phone: 03-04-2017 09:28-0400 BP Diastolic 82 mm[Hg] Woody [facility] Work Phone: 03-04-2017 09:28-0400 BP Systolic 140 mm[Hg] Woody [facility] Work Phone: 03-04-2017 09:28-0400 Height 166.37 cm Woody [facility] Work Phone: 03-04-2017 09:28-0400 Pulse (Heart Rate) 70 /min Woody [facility] Work Phone: 03-04-2017 09:28-0400 Respiratory Rate 20 /min Woody [facility] Work Phone: 03-04-2017 09:28-0400 Weight 97.52 kg Woody [facility] Work Phone: 01-29-2017 08:48-0400 BMI (Body Mass Index) 33.54 kg/m2 Ynes Alvarenga LPN [facility] Work Phone: 01-29-2017 08:48-0400 Body Temperature 98.8 [degF] Ynes Alvarenga LPN [facility] Work Phone: 01-29-2017 08:48-0400 BP Diastolic 94 mm[Hg] Ynes Alvarenga LPN [facility] Work Phone: 01-29-2017 08:48-0400 BP Systolic 180 mm[Hg] Ynes Alvarenga LPN [facility] Work Phone: 01-29-2017 08:48-0400 Height 168.91 cm Ynes Alvarenga LPN [facility] Work Phone: 01-29-2017 08:48-0400 Pulse (Heart Rate) 78 /min Ynes Alvarenga LPN [facility] Work Phone: 01-29-2017 08:48-0400 Pulse Oximetry 97 % [facility] Work [facility]: 01-29-2017 08:48-0400 Respiratory Rate 16 /min Ynes Alvarenga LPN [facility] Work Phone: 01-29-2017 08:48-0400 Weight 95.71 kg Ynes Alvarenga LPN [facility] Work Phone: 08-27-2016 07:20-0500 Body Temperature 97.7 [degF] Ynes Alvarenga LPN [facility] Work Phone: 08-27-2016 07:20-0500 BSA (Body Surface Area) 2.1 m2 Ynes Alvarenga LPN [facility] Work Phone: 08-27-2016 07:20-0500 Height 168.91 cm Ynes Alvarenga LPN [facility] Work Phone: 08-27-2016 07:20-0500 Weight 100.45 kg Ynes Alvarenga LPN [facility] Work Phone: 08-08-2015 10:29-0500 Heart rate 78 /min Chantalle Naye [facility] Work Phone: 09-17-2010 09:57-0500 Pulse (Heart Rate) 95 /min Ynes Alvarenga LPN [facility] Work Phone: Encounters Encounter Date Encounter Type Care Provider Facility Start: 10-22-2021 End: 10-24-2021 Evaluation and management of inpatient DR WOODY JENSEN MD [facility] Start: 10-07-2021 End: 10-07-[address] WOODY JENSEN MD [facility] Start: 10-01-2020 End: 10-01-2020 Orders Only Danielle Paintingkrystyna Basurto Work Phone: [facility] Start: 02-17-2020 End: 02-18-2020 Emergency department [facility] Start: 02-17-2020 End: 02-17-2020 Emergency department patient visit [facility] Work Phone: [facility] Emergency Department Procedures Date Procedure Procedure Detail Performing Clinician Start: 10-22-[address] WOODY JENSEN MD Plan of Treatment Date Care Activity Detail Author Start: 02-24-2029 Tetanus vaccination Tetanus: Every 10yrs [facility] Start: 2020 Pneumococcal vaccination Pneumococcal Vaccine Age 65+ (1 of 2 - PCV13) [facility] Start: 04-24-2020 Influenza vaccination given [facility] Start: 03-31-2018 End: 03-31-2018 Appointment Appointment [facility] Work Phone: Start: 04-01-2017 End: 04-01-2017 Appointment Appointment [facility] Work Phone: Start: 04-01-2017 End: 04-01-2017 RN PAIN MANAGEMENT RN PAIN MANAGEMENT [facility] Work Phone: Start: 04-01-2017 End: 04-01-2017 Echocardiography Echocardiogram (complete) [facility] Work Phone: Start: 04-01-2017 End: 04-01-2017 Follow Up Appt 1 year Follow Up Appt 1 year [facility] Work Phone: Start: 03-04-2017 End: 03-04-2017 Appointment Appointment [facility] Work Phone: Start: 01-29-2017 End: 01-29-2017 Appointment Appointment [facility] Work Phone: Start: 08-27-2016 End: 09-01-2016 Blood clot inhibitor antigen Protein C Activity w/Reflex to Antigen [facility] Work Phone: Start: 08-27-2016 End: 08-27-2016 Follow Up Appt 3 months Follow Up Appt 3 months [facility] Work Phone: Start: 08-27-2016 End: 09-01-2016 Protein mass conc Protein C Activity w/Reflex to Antigen [facility] Work Phone: Start: 08-27-2016 End: 08-27-2016 Pulmonary Function Test - complete Pulmonary Function Test - complete [facility] Work Phone: Start: 06-03-2016 End: 06-16-2016 Blood clot inhibitor antigen Protein C Activity w/Reflex to Antigen [facility] Work Phone: Start: 06-03-2016 End: 06-16-2016 Blood clot inhibitor test Protein S Activity w/Reflex to Antigen [facility] Work Phone: Start: 06-03-2016 End: 06-03-2016 Follow Up Appt 3 months Follow Up Appt 3 months [facility] Work Phone: Start: 06-03-2016 End: 06-16-2016 Protein mass conc [facility] Work Phone: Start: 03-11-2016 End: 03-11-2016 Follow Up Appt 6 months Follow Up Appt 6 months [facility] Work Phone: Start: 03-11-2016 End: 03-11-2016 MMM MMM [facility] Work Phone: Start: 11-07-2015 End: 11-07-2015 RN PAIN MANAGEMENT RN PAIN MANAGEMENT [facility] Work Phone: Start: 11-07-2015 End: 11-07-2015 Follow Up Appt 4 months Follow Up Appt 4 months [facility] Work Phone: Start: 09-26-2015 End: 09-26-2015 Physical Therapy [facility], [address] [place] [address], [id number] [facility] Work Phone: Start: 09-25-2015 End: 09-25-2015 X-ray exam of ankle X-Ray, Ankle [facility] Work Phone: Start: 09-14-2015 End: 08-22-2016 Complete sleep workup (PSG,CPAP as indicated) & Follow up Complete sleep workup (PSG,CPAP as indicated) & Follow up [facility] Work Phone: Start: 09-14-2015 End: 08-22-2016 Follow Up Appt 3 months Follow Up Appt 3 months [facility] Work Phone: Start: 08-08-2015 End: 08-08-2015 *BMP *BMP [facility] Work Phone: Start: 08-08-2015 End: 08-08-2015 CBC W Auto Differential panel - Blood *CBC without Diff [facility] Work Phone: Start: 08-08-2015 End: 08-08-2015 Chest x-ray X-Ray, Chest, PA & Lateral [facility] Work Phone: Start: 08-08-2015 End: 08-08-2015 Coagulation factor induced.INR assay in platelet poor plasma *PT/INR [facility] Work Phone: Start: 08-08-2015 End: 08-08-2015 Electrocardiogram, complete EKG (In office) [facility] Work Phone: Start: 08-08-2015 End: 08-08-2015 Follow Up Appt 3 months Follow Up Appt 3 months [facility] Work Phone: Start: 08-08-2015 End: 08-08-2015 MMM MMM [facility] Work Phone: Start: 07-23-2015 End: 07-23-2015 Left & Right Heart Cath Left & Right Heart Cath [facility] Work Phone: Start: 07-17-2015 End: 07-17-2015 X-ray exam of ankle X-Ray, Ankle [facility] Work Phone: Start: 06-19-2015 End: 06-19-2015 RN PAIN MANAGEMENT RN PAIN MANAGEMENT [facility] Work Phone: Start: 06-19-2015 End: 06-19-2015 Follow Up Appt 6 weeks Follow Up Appt 6 weeks [facility] Work Phone: Start: 06-05-2015 End: 06-05-2015 X-ray exam, knee, 4 or more X-Ray, Knee [facility] Work Phone: Start: 05-09-2015 End: 05-10-2015 BNP *Brain Natriuretic Peptide BNP [facility] Work Phone: Start: 05-09-2015 End: 08-08-2015 RN PAIN MANAGEMENT RN PAIN MANAGEMENT [facility] Work Phone: Start: 05-09-2015 End: 05-09-2015 Follow Up Appt 6 weeks Follow Up Appt 6 weeks [facility] Work Phone: Start: 04-11-2015 End: 08-22-2016 Cholesterol Methylcholine inhalation challenge [facility] Work Phone: Start: 04-11-2015 End: 08-22-2016 Follow Up Appt 3 months Follow Up Appt 3 months [facility] Work Phone: Start: 04-11-2015 End: 08-22-2016 Tte w/doppler, complete Echo Complete with Color Flow [facility] Work Phone: Start: 03-08-2015 End: 08-22-2016 Follow Up Appt 1 month Follow Up Appt 1 month [facility] Work Phone: Start: 03-08-2015 End: 08-22-2016 Pulmonary Function Test - complete Pulmonary Function Test - complete [facility] Work Phone: Start: 03-23-2012 End: 08-08-2015 *Hepatic Function Panel *Hepatic Function Panel [facility] Work Phone: Start: 03-23-2012 End: 08-08-2015 Lipid panel [AGGREGATE] *Lipid Profile [facility] Work Phone: Start: 2005 Administration of herpes zoster vaccine Zoster Vaccines (1 of 2) [facility] Start: 2005 Screening for malignant neoplasm of colon [facility] Start: 1973 Hepatitis C antibody, confirmatory test Hepatitis C Screening [facility] Start: 1971 COVID-19 Vaccine (1 of 2) COVID-19 Vaccine (1 of 2) [facility] Start: 1970 HIV screening HIV Screening [facility] Start: 1967 Adolescent depression screening assessment Depression Screening (PHQ9) [facility] Start: 1958 History and physical examination, annual for health maintenance Wellness Visit [facility] Start: 1955 Fall risk assessment Falls Risk Assessment [facility] Start: 1955 Hepatitis C antibody, confirmatory test Hepatitis C Screening [facility] Start: 1955 Screening for malignant neoplasm of cervix Pap Smear [facility] Start: 1955 Screening for malignant neoplasm of colon Colorectal Cancer Screening: [facility] Start: 1955 Screening for osteoporosis Dexa Scan [facility] Start: 1955 Screening mammography Mammogram [facility] Start: 1955 Tetanus vaccination Tetanus: Every 10yrs [facility] Patient Education [facility] [employer] Work Phone: Immunizations Immunization Date Immunization Notes Care Provider Karlie bush 08-14-2021 SARS-CoV-2 (COVID-19 ) mRNA-[id number] WOODY JENSEN MD [facility] 12-27-2020 SARS-CoV-2 (COVID-19 ) mRNA-[id number] WOODY JENSEN MD [facility] Payers Date Payer Category Payer Unknown [employer] [facility] [employer] xxxxxxxxxxxx 2019-Present xxxxxxxxxxxx [id number] 2019 Unknown [id number] [address] [employer] [facility] [employer] [id number] 2019-Present [id number] 2017 Unknown [id number] 1955 Unknown [id number] Social History Date Type Detail Facility Start: 02-17-2020 End: 08-27-2020 Tobacco smoking status NHIS Never smoker [facility] Start: 02-17-2020 Alcohol intake Lifetime non-d natanael (finding) [facility] Start: 02-17-2020 History SDOH Alcohol Frequency 1 [facility] Sex Assigned At Not on file [facility] Exposure to SARS-CoV -2 (event) Not sure [facility] Start: 02-17-2020 Tobacco use and exposure Never used [facility] Assigned At [facility] [place] Clinical Notes 01-15-2021 to 12-19-2021 Note Date & Type Note Facility 12-19-2021 Note . MICRO - Microbiology PROCEDURE: Acid Fast Bacilli Culture w Stain if Ind [*1] SOURCE: Tissue BODY SITE: Knee L COLLECTED DATE/TIME: 10/22/2021 12:56 EST RECEIVED DATE/TIME: 10/22/2021 20:36 EST START DATE/TIME: 10/22/2021 20:36 EST FREE TEXT SOURCE: 3. TIBIAL MEMBRANE FINAL REPORTS Final Report [] Verified Date/Time/Personnel: 12/19/2021 08:41 EDT No growth of Acid Fast Bacilli PRELIMINARY REPORTS Preliminary Report [] Verified Date/Time/Personnel: 12/06/2021 10:03 EDT No growth of Acid Fast Bacilli to date. Final report to follow at 8 weeks. STAINS AFS [] Verified Date/Time/Personnel: 10/23/2021 14:55 EST Acid Fast Smear from Concentrated Specimen: Negative Performing Locations *1: This test was performed at: [facility], [address] [place] [address], [id number]- , [facility]ly [facility] ([place]) 12-19-2021 Note . MICRO - Microbiology PROCEDURE: Acid Fast Bacilli Culture w Stain if Ind [O1 *1] SOURCE: Tissue BODY SITE: Knee L COLLECTED DATE/TIME: 10/22/2021 12:56 EST RECEIVED DATE/TIME: 10/22/2021 20:19 EST START DATE/TIME: 10/22/2021 20:20 EST FREE TEXT SOURCE: 1. SUPRAPATELLAR POUCH FINAL REPORTS Final Report [] Verified Date/Time/Personnel: 12/19/2021 08:39 EDT No growth of Acid Fast Bacilli PRELIMINARY REPORTS Preliminary Report [] Verified Date/Time/Personnel: 12/06/2021 10:03 EDT No growth of Acid Fast Bacilli to date. Final report to follow at 8 weeks. STAINS AFS [] Verified Date/Time/Personnel: 10/23/2021 14:55 EST Acid Fast Smear from Concentrated Specimen: Negative Order Comments O1: Acid Fast Bacilli Culture w Stain if Ind #2 anterior cruciate ligament L knee Performing Locations *1: This test was performed at: [address], [id number]- , [facility]ly [facility] ([place]) 12-19-2021 Note . MICRO - Microbiology PROCEDURE: Acid Fast Bacilli Culture w Stain if Ind [*1] SOURCE: Tissue BODY SITE: Knee L COLLECTED DATE/TIME: 10/22/2021 12:56 EST RECEIVED DATE/TIME: 10/22/2021 20:07 EST START DATE/TIME: 10/22/2021 20:07 EST FREE TEXT SOURCE: 2. POSTERIOR CRUCIATE LIGAMENT MEMBRANE FINAL REPORTS Final Report [] Verified Date/Time/Personnel: 12/19/2021 08:39 EDT No growth of Acid Fast Bacilli PRELIMINARY REPORTS Preliminary Report [] Verified Date/Time/Personnel: 12/06/2021 10:03 EDT No growth of Acid Fast Bacilli to date. Final report to follow at 8 weeks. STAINS AFS [] Verified Date/Time/Personnel: 10/23/2021 14:55 EST Acid Fast Smear from Concentrated Specimen: Negative Performing Locations *1: This test was performed at: [address], [facility]- , [facility] ([place]) 11-26-2021 Note . MICRO - Microbiology PROCEDURE: Fungal Culture with Stain if Ind [*1] SOURCE: Tissue BODY SITE: Knee L COLLECTED DATE/TIME: 10/22/2021 12:56 EST RECEIVED DATE/TIME: 10/22/2021 20:36 EST START DATE/TIME: 10/22/2021 20:36 EST FREE TEXT SOURCE: 2. POSTERIOR CRUCIATE LIGAMENT MEMBRANE FINAL REPORTS Final Report [] Verified Date/Time/Personnel: 11/26/2021 09:46 EDT No fungus isolated in 4 weeks. PRELIMINARY REPORTS Preliminary Report [] Verified Date/Time/Personnel: 10/25/2021 08:25 EST No fungus isolated to date. Final report to follow. STAINS FUNSM [] Verified Date/Time/Personnel: 10/23/2021 15:00 EST No fungal elements observed by calcofluor white stain. Performing Locations *1: This test was performed at: [address], [facility]- , [facility] ([place]) 11-26-2021 Note . MICRO - Microbiology PROCEDURE: Fungal Culture with Stain if Ind [*1] SOURCE: Tissue BODY SITE: Knee L COLLECTED DATE/TIME: 10/22/2021 12:56 EST RECEIVED DATE/TIME: 10/22/2021 20:07 EST START DATE/TIME: 10/22/2021 20:07 EST FREE TEXT SOURCE: 1. SUPRAPATELLA POUCH FINAL REPORTS Final Report [] Verified Date/Time/Personnel: 11/26/2021 09:46 EDT No fungus isolated in 4 weeks. PRELIMINARY REPORTS Preliminary Report [] Verified Date/Time/Personnel: 10/25/2021 08:25 EST No fungus isolated to date. Final report to follow. STAINS FUNSM [] Verified Date/Time/Personnel: 10/23/2021 15:00 EST No fungal elements observed by calcofluor white stain. Performing Locations *1: This test was performed at: [address] ([place]) 11-26-2021 Note . MICRO - Microbiology PROCEDURE: Fungal Culture with Stain if Ind [O1 *1] SOURCE: Tissue BODY SITE: Knee L COLLECTED DATE/TIME: 10/22/2021 12:56 EST RECEIVED DATE/TIME: 10/22/2021 20:19 EST START DATE/TIME: 10/22/2021 20:20 EST FREE TEXT SOURCE: 3. TIBIAL MEMBRANE FINAL REPORTS Final Report [] Verified Date/Time/Personnel: 11/26/2021 09:46 EDT No fungus isolated in 4 weeks. PRELIMINARY REPORTS Preliminary Report [] Verified Date/Time/Personnel: 10/25/2021 08:25 EST No fungus isolated to date. Final report to follow. STAINS FUNSM [] Verified Date/Time/Personnel: 10/23/2021 15:00 EST No fungal elements observed by calcofluor white stain. Order Comments O1: Fungal Culture with Stain if Ind #2 anterior cruciate ligament L knee Performing Locations *1: This test was performed at: [address], [facility] , [facility] ([place]) 10-29-2021 Note . MICRO - Microbiology PROCEDURE: Culture Tissue [O1 *1] SOURCE: Tissue BODY SITE: Knee L COLLECTED DATE/TIME: 10/22/2021 12:56 EST RECEIVED DATE/TIME: 10/22/2021 20:36 EST START DATE/TIME: 10/22/2021 20:36 EST FREE TEXT SOURCE: 3. TIBIAL MEMBRANE L KNEE FINAL REPORTS Final Report [] Verified Date/Time/Personnel: 10/29/2021 07:32 EST No growth at 7 days. PRELIMINARY REPORTS Preliminary Report [] Verified Date/Time/Personnel: 10/23/2021 09:00 EST No growth to date STAINS GS [] Verified Date/Time/Personnel: 10/22/2021 21:27 EST 3+ Red Blood Cells 1+ White Blood Cells No organisms seen. Order Comments O1: Culture Tissue (Tissue Culture) #3 TIBIAL MEMBRANE L KNEE Performing Locations *1: This test was performed at: [address], [address] [place] [address] ([facility] 10-29-2021 Note . MICRO - Microbiology PROCEDURE: Culture Tissue [O1 *1] SOURCE: Tissue BODY SITE: Knee L COLLECTED DATE/TIME: 10/22/2021 12:56 EST RECEIVED DATE/TIME: 10/22/2021 20:19 EST START DATE/TIME: 10/22/2021 20:19 EST FREE TEXT SOURCE: 2. ANTERIOR CRUCIATE LIGAMENT L KNEE FINAL REPORTS Final Report [] Verified Date/Time/Personnel: 10/29/2021 07:31 EST No growth at 7 days. PRELIMINARY REPORTS Preliminary Report [] Verified Date/Time/Personnel: 10/23/2021 09:00 EST No growth to date STAINS GS [] Verified Date/Time/Personnel: 10/22/2021 21:26 EST 3+ Red Blood Cells 1+ White Blood Cells No organisms seen. Order Comments O1: Culture Tissue (Tissue Culture) #2 Performing Locations *1: This test was performed at: [address], [address] [place] [address] ([place]) 10-29-2021 Note . MICRO - Microbiology PROCEDURE: Culture Tissue [*1] SOURCE: Tissue BODY SITE: Knee L COLLECTED DATE/TIME: 10/22/2021 12:56 EST RECEIVED DATE/TIME: 10/22/2021 20:07 EST START DATE/TIME: 10/22/2021 20:07 EST FREE TEXT SOURCE: 1. SUPRAPATELLA POUCH FINAL REPORTS Final Report [] Verified Date/Time/Personnel: 10/29/2021 07:31 EST No growth at 7 days. PRELIMINARY REPORTS Preliminary Report [] Verified Date/Time/Personnel: 10/23/2021 08:59 EST No growth to date STAINS GS [] Verified Date/Time/Personnel: 10/22/2021 21:27 EST 1+ Red Blood Cells Rare White Blood Cells No organisms seen. Performing Locations *1: This test was performed at: [facility], [address] [place] [address], [facility] , [facility] ([place]) 10-23-2021 Hospital Discharge instructions Patient Education 10/23/2021 08:06:24 5 - [facility] Post-op Instruction 03/2017 ([id number]) [facility] Post-operative Instructions PLEASE FOLLOW [facility] POST-OP INSTRUCTIONS GIVEN WATCH FOR SIGNS OF INFECTION: call the office ([phone]) if experencing any of the following: (Usually appears 36-48 hours after surgery) Increased temperature (101 degrees Fahrenheit or higher) Redness or swelling Increased uncontrolled pain Foul odor or drainage Calf discomfort Significant swelling Or if having any chest pain, shortness of breath, or difficulty breathing or swallowing call the office or go the nearest Emergency Room. If you have any questions, please call your doctor at the number listed on your follow up instructions. Form: 338A ([id number]) R: 12/28 Follow Up Care 09/03/2021 15:07:22 With:[facility] Address: [address] [place] [phone] When:10/25/2021 13:00:00 Comments:This is your first physical therapy appointment. (It was rescheduled fro 10-24-21). With:FAUSTO SNOW PA-C, Orthopedic Address: [address] [place] [address] [address] [facility], [place] [address] [phone] When:11/06/2021 10:45:00 Comments:This is your post-op appointment. Follow-up as scheduled. [facility] 04-29-2021 Note HNO ID: [id number] Author: Dominic Tariq APRN.COMPOSING ROOM MACHINIST Service: ? Author Type: Nurse Practitioner Type: Progress Notes Filed: 04/29/2021 3:41 PM Note Text: Chief Complaint Patient presents with: URI: with HERNANDEZ AND fever x 2 days SUBJECTIVE: Kacey Arceo is an 65 year old who presents with an illness that began 2 day(s) ago and are gradually worsening since that time. Complaints of cough, intermittent SOB, body aches, headaches, and congestion. Denies having exposure to covid or sick contacts. She is fully vaccinated. She has an inhaler at home but has not been using it as needed. Has the patient had any ill contacts? No Has the patient had contact with anyone confirmed with COVID-19 infection? No Does the patient have family with confirmed COVID-19 infection: No Does the patient have the following symptoms or signs? *Fever: (Temp 100.4F or greater) Yes *Coughing: Yes *Shortness of breath: Yes Chills or shaking with chills: No Muscle aches/pain: Yes New loss of taste or smell: No Headache: Yes Decreased level of consciousness: No Nasal congestion: Yes Sore throat: No Vomiting: No Diarrhea: No Decreased appetite: No Signs of dehydration (low fluid intake or voiding, diarrhea, dry mucus membranes): No *Fever plus coughing or shortness of breath answered yes is considered high risk PATIENT'S HIGH RISK CATEGORY ASSESSMENT: Age > 60 years old Heart failure reduced ejection fraction Morbid Obesity (BMI>40) Past medical history, appointments, medications, allergies reviewed 04/29/2021 Previous Medical History PAST MEDICAL HISTORY Diagnosis Date - Adrenal insufficiency (HCC) due to high dose corticosteroids for dyspnea - Chronic diastolic CHF (congestive heart failure) (HCC) 09/20/201507/2015 heart cath [facility]: RA mean 13, PA mean 31 PCWP 32, LVEDP 29, CO 4.73, CI 2.17. - Concussion 02/2010 - Dysthymic disorder Depression (non-psychotic) - Generalized anxiety disorder Anxiety, Generalized - Lupus (HCC) Limited to skin. - Pulmonary hypertension (HCC) Previous Surgical History PAST SURGICAL HISTORY Procedure Laterality Date - PAST SURGICAL HISTORY OF right kidney removal - REDUCTION OF LARGE BREAST 08/12/2010 - REMOVE TONSILS/ADENOIDS,12+ Y/O - TOTAL ABDOM HYSTERECTOMY Review of Systems Constitutional: Positive for fever and malaise/fatigue. Negative for chills. HENT: Positive for congestion. Negative for ear pain and sore throat. Respiratory: Positive for cough, shortness of breath and wheezing. Cardiovascular: Negative for chest pain and palpitations. Gastrointestinal: Negative for abdominal pain, diarrhea, nausea and vomiting. Musculoskeletal: Positive for myalgias. Skin: Negative for itching and rash. Neurological: Positive for headaches. Negative for dizziness and tingling. EXAM/OBJECTIVE: BP 144/82 Pulse 94 Temp 37.8 ?C (100 ?F) (Left Tympanic) Resp 24 Wt 93.4 kg (206 lb) SpO2 96% BMI 35.36 kg/m? Physical Exam Vitals and nursing note reviewed. Constitutional: Appearance: Normal appearance. HENT: Nose: Congestion and rhinorrhea present. Mouth/Throat: Mouth: Mucous membranes are moist. Pharynx: No oropharyngeal exudate or posterior oropharyngeal erythema. Eyes: Extraocular Movements: Extraocular movements intact. Pupils: Pupils are equal, round, and reactive to light. Cardiovascular: Rate and Rhythm: Normal rate and regular rhythm. Pulses: Normal pulses. Heart sounds: Normal heart sounds. Pulmonary: Effort: Pulmonary effort is normal. Breath sounds: Examination of the right-upper field reveals wheezing. Examination of the left-upper field reveals wheezing. Examination of the right-middle field reveals wheezing. Examination of the left-middle field reveals wheezing. Examination of the right-lower field reveals wheezing. Examination of the left-lower field reveals wheezing. Wheezing present. No decreased breath sounds, rhonchi or rales. Chest: Chest wall: No tenderness. Skin: General: Skin is warm and dry. Neurological: Mental Status: She is alert and oriented to person, place, and time. Data reviewed Last 5 Encounter BP Readings: Date: BP: 04/29/2021 144/82 05/13/2017 134/80 02/18/2017 136/80 11/19/2016 136/84 10/08/2016 126/80 BMI Readings from Last 5 Encounters: 04/29/21 : 35.36 kg/m? 05/13/17 : 36.56 kg/m? 02/18/17 : 36.73 kg/m? 11/19/16 : 36.56 kg/m? 10/08/16 : 37.25 kg/m? Last 5 Encounter Wt Readings: Date: Wt: 04/29/2021 93.4 kg (206 lb) 05/13/2017 96.6 kg (213 lb) 02/18/2017 97.1 kg (214 lb) 11/19/2016 96.6 kg (213 lb) 10/08/2016 98.4 kg (217 lb) Medication and allergy list reviewed, reconciled and updated 04/29/2021 ASSESSMENT/PLAN: (Z20.822) Suspected COVID-19 virus infection (primary encounter diagnosis) -2018 CORONAVIRUS -guaiFENesin (MUCINEX) 600 mg 12 hr tablet -methylPREDNISolone (MEDROL, KATHERIN,) 4 mg Dose-Pack -discussed peter ledesma (more content not included)... [facility] 01-15-2021 Note ORIGINAL Procedure: X-ray Clinical: Postoperative. Technique: 2 views of the LEFT knee were obtained. Comparison: CT LEFT knee 12/24/2020 Findings: There is normal mineralization. No acute fracture or dislocation is seen. The patient is status post left knee replacement with appropriate positioning of the prosthesis. There are postsurgical changes in the left knee with a small joint effusion. Impression: Status post left knee replacement. Interpreted By: Manoj Celeste MD Preliminary Report By: Manoj Celeste MD Electronically Signed By: Manoj Celeste MD Dictated Date: 01/15/2021 12:51:38 PM Prelim Date: 01/15/2021 12:51:38 PM Sign Date: 01/15/2021 12:52:38 PM Ordering Provider:Woody Jensen [facility] ([place]) Evaluation + Plan note Future Appointments [facility] Hospital course Narrative No data available for this section [facility] Hospital Discharge instructions No data available for this section [facility] Summary Purpose Family History No Family History Records FoundNo Family History Records FoundNo Family History Records FoundNo Family History Records Found Advance Directives No Advanced Directives Records FoundDocuments on File Type Date Recorded Patient Internal Audit Director Tristan michael Advance Directives and rBock andres Will 02/17/2020 9:59 PM Discharge Instructions * Attachments The following attachments cannot be sent through Care Everywhere. * Hip Pain (Ghanaian) documented in this encounter Assessments Diagnosis Right hip pain Pain in joint, pelvic region and thigh Additional Source Comments INFORMATION SOURCE (unrecogn ized section and content) DATE CREATED AUTHOR AUTHOR'S ORGANIZ ATION 03/14/2020 [facility] DATE CREATED AUTHOR AUTHOR'S ORGANIZ ATION 10/18/2021 [facility] DATE CREATED AUTHOR AUTHOR'S ORGANIZ ATION 01/02/2022 [facility] ([place]) Reason for Visit (unrecogniz ed section and content) Chin Adame RN - 02/17/2020 10:57 PM EDTBSophia anderson DO - 02/17/2020 10:42 PM EDTCapri Wallace RN - 02/17/2020 9:41 PM EDTMarilyn Lobo RN - 02/17/2020 9:40 PM EDT ED Notes (unrecognized secti on and content) Pt A&Ox4, pt verbalizes understanding of discharge instructions and follow up care. ED PROVIDER NOTE [facility] EMERGENCY DEPARTMENT NAME: Kacey Arceo AGE: 64 y.o. : 1955 VISIT DATE: 02/17/2020 CSN: [id number] PCP: Phil Cárdenas DO Chief Complaint Patient presents with Fall HPI 64-year-old female to the emergency department for evaluation of right hip pain. Patient states that she fell hitting her right hip on a wooden corner of the bed. She is complaining of pain to the right buttocks when she raises her leg. Is denying any lower back pain or any other area of injury. No head or neck pain. No chest pain or shortness of breath. Rates the pain a scale a 9 on a scale of 1-10. Past Medical History: Diagnosis Date Adrenal insufficiency, primary (HCC) Depression Past Surgical History: Procedure Laterality Date EYE SURGERY HYSTERECTOMY (CERVIX REMAINS) KNEE SURGERY NEPHRECTOMY TONSILLECTOMY History reviewed. No pertinent family history. Social History Socioeconomic History Marital status: Spouse name: Not on file Number of children: Not on file Years of education: Not on file Highest education level: Not on file Occupational History Not on file Social Needs Financial resource strain: Not on file Food insecurity Worry: Not on file Inability: Not on file Transportation needs Medical: Not on file Non-medical: Not on file Tobacco Use Smoking status: Never Smoker Smokeless tobacco: Never Used Substance and Sexual Activity Alcohol use: Never Frequency: Never Drug use: Never Sexual activity: Not on file Lifestyle Physical activity Days per week: Not on file Minutes per session: Not on file Stress: Not on file Relationships Social connections Talks on phone: Not on file Gets together: Not on file Attends mormon service: Not on file Active member of club or organization: Not on file Attends meetings of clubs or organizations: Not on file Relationship status: Not on file Other Topics Concern Not on file Social History Narrative Not on file Allergies Allergen Reactions Sulfa (Sulfonamide Antibiotics) Review of Systems Constitutional: Negative for unexpected weight change. HENT: Negative for voice change. Eyes: Negative for itching. Respiratory: Negative for choking. Gastrointestinal: Negative for rectal pain. Endocrine: Negative for polyphagia. Skin: Negative for color change. Allergic/Immunologic: Negative for immunocompromised state. Neurological: Negative for facial asymmetry. Hematological: Does not bruise/bleed easily. Psychiatric/Behavioral: Negative for self-injury. Patient Vitals for the past 24 hrs: BP Temp Temp src Pulse Resp SpO2 Height Weight 02/17/20 2143 (!) 164/76 98.5 F (36.9 C) Oral 79 18 99 % 5' 4 80.7 kg (178 lb) Physical Exam Constitutional: Appearance: Normal appearance. HENT: Head: Normocephalic and atraumatic. Nose: Nose normal. Mouth/Throat: Mouth: Mucous membranes are moist. Pharynx: Oropharynx is clear. Eyes: Extraocular Movements: Extraocular movements intact. Conjunctiva/sclera: Conjunctivae normal. Neck: Musculoskeletal: Normal range of motion and neck supple. Cardiovascular: Rate and Rhythm: Normal rate and regular rhythm. Pulses: Normal pulses. Heart sounds: Normal heart sounds. Chest: Chest wall: No tenderness. Abdominal: General: Abdomen is flat. Bowel sounds are normal. There is no distension. Tenderness: There is no abdominal tenderness. Musculoskeletal: Comments: Tenderness to the right gluteal area to palpation. Mild pain with internal and external rotation of the hip. Nontender knees or ankles. Neurological: General: No focal deficit present. Mental Status: She is alert and oriented to person, place, and time. Laboratory & Radiographic Imaging (if done): No results found for this visit on 02/17/20. XR Hip Right With Pelvis 2-3 Views (Routine) Final Result FINDINGS/ 1. No radiographic evidence of acute fracture. No dislocation or traumatic malalignment. 2. Mild degenerative changes of bilateral hips. 3. Severe degenerative changes of the lower lumbar spine. Workstation ID: [id number] Procedures MDM X-ray did not reveal any acute abnormality. Will ambulate the patient prior to discharge. The patient has been informed that they may have pre-hypertension or hypertension based on a blood pressure reading in the Emergency Department. I recommend that the patient call the primary care provider listed on their discharge instructions or a physician of their choice as soon as possible to arrange follow-up in the next 4 weeks for further evaluation of possible pre-hypertension or hypertension. . Clinical Impression: 1. Right hip pain ED Disposition ED Disposition Condition Comment Discharge Stable Kacey Arceo discharged to home/self care in stable condition. Follow-up Information 1. Phil Cárdenas DO. Specialty: Family Medicine Why: As needed [address] [facility] [address] Contact information for after-discharge care Follow-up information has not been specified. New Prescriptions HYDROcodone-acetaminophen (NORCO) 5-325 mg per tablet Take 1 (one) tablet by mouth every 6 (six) hours as needed . Sophia Ma DO 02/17/20 6257 Pt to triage per squad after falling at 2100 and hitting a wooden corner on a bed, she c/o severe pain in her right butt cheek. She rates it a 9/10 on the pain scale. Bed: 28A Expected date: Expected time: Means of arrival: Comments: Medic 95 documented in this encounter FOR RECORDS PERTAINING TO PATIENTS WHO ARE OR HAVE BEEN ENROLLED IN A CHEMICAL DEPENDENCY/SUBSTANCEABUSE PROGRAM, SOME INFORMATION MAY BE OMITTED. This clinical summary was aggregated from multiple sources. Caution should be exercised in using it in the provision of clinical care. This summary normalizes information from multiple sources, and as a consequence, information in this document may materially change the coding, format and clinical context of patient data. In addition, data may be omitted in some cases. CLINICAL DECISIONS SHOULD BE BASED ON THE PRIMARY CLINICAL RECORDS. [facility] [employer] [facility]. provides no warranty or guarantee of the accuracy or completeness of information in this document.
[2023-11-05] MEDS: Lactated Ringers 1,000 ML 999 ML IV (06:05)
[2023-11-05] MEDS: Magnesium 1 GM over 15 mins IV (06:05)
[2023-11-05] MEDS: Gabapentin 600 MG Tablet PO (06:17)
[2023-11-05] MEDS: Acetaminophen 500 MG Tablet 1000 MG PO (06:17)
[2023-11-05 06:48] LABS: Bedside Glucose 134 mg/dL (74-106)
--- NOTE | 2023-11-05 07:30 | BON_PTH ---
PATHOLOGY RESULTS PATIENT: YULISA ARCEO [place] [facility] [id number] AGE/SX: 68/F ROOM: RE11/05/[address]: Dr. Micah Jc DO : 1955 BED: DIS: 11/05/2023 SPEC #: [id number] RECD: 11/05/23 12:28 STATUS: TERESA AYAN #: [id number] CHEYANNE: 11/05/23 07:[address]: Micah Jc DEPT: SURGICAL PATHOLOGY RECD BY: Jenn Cota ENTERED: 11/05/23 12:29 SP TYPE: Bone OTHR DR: Dr. Weston Cárdenas DO Tissues: Humerus, NOS Procedures: Decalcification bone/plaque Surgery Specimen Level IV HEADER OPERATION: Left reverse total shoulder arthroplasty PRE-OP DIAGNOSIS: Left shoulder osteoarthritis TISSUE SUBMITTED: Left humeral head MICROSCOPIC DIAGNOSIS Left humeral head, total shoulder replacement/resection; Humeral head with degenerative osteoarthritic changes. SJ/ 11/11/23 MICROSCOPIC DESCRIPTION Slides are reviewed. GROSS DESCRIPTION Received is one container labeled with the patient's name and designated bone and soft tissue. The specimen consists of a humeral head measuring 5.0 x 5.0 x 2.0 cm. The articular surface shows areas of erosion, and osteophyte formation. No soft tissue was identified. Apns sections are submitted in one cassettes after decalcification. / KWADWO: 11/05/23 TC:5 CPT: 03459, 69773
[2023-11-05] MEDS: Cefazolin 2 GM in 0.9% Normal Saline (100mL Bag) 100 ML IV (07:38)
[2023-11-05] MEDS: dexAMETHasone 10 MG/ML Vial IV (07:50)
[2023-11-05] MEDS: TXA 1000mg in NS100 100ml (IVPB at Incision) 660 MG IV (07:50)
[2023-11-05] MEDS: Vancomycin IV 1,000 MG/20 ML Vial 1000 MG OPERA.SITE (09:00)
--- NOTE | 2023-11-05 09:46 | RAD_ITS ---
STUDY: X-RAY - LEFT SHOULDER REASON FOR EXAM: Female, 68 years old. Post op -- AP and Lateral X-Ray of operative shoulder in PACU TECHNIQUE: 3 view(s) of the shoulder. COMPARISON: None. FINDINGS: The patient is status post left reverse shoulder replacement. There is good alignment. Atelectasis at the left lung base. RAD/Shoulder min 2 Views IMPRESSION: The patient is status post left reverse shoulder replacement. There is good alignment. Electronically Signed: Wu Alicia MD at 10:54 EDT ,
--- NOTE | 2023-11-05 09:49 | OP.PCM_ITS ---
Report of Operation Date of Procedure: 11/05/23
--- NOTE | 2023-11-05 09:49 | PCM.OPRPT ---
Report of Operation Date of Procedure: 11/05/23 Description of Surgical Findings:: Preoperative diagnosis: 1. Left shoulder primary osteoarthritis 2. Left shoulder rotator cuff insufficiency Postoperative diagnosis: 1. Left shoulder primary osteoarthritis 2. Left shoulder rotator cuff insufficiency Procedure: Left reverse total shoulder arthroplasty Surgeon: Micah Jc DO Field Operations Supervisor: Arleen Montana PA-C Anesthesia: General endotracheal C 40A Crew Chief: Shmuel Tubbs CRNA Complications: None apparent Drains: None Estimated blood loss: 200 cc Urinary output: None IV fluids: Per anesthesia record Specimens: None Surgical implants: Tornier Aequalis PerFORM+ reversed full wedge augmented baseplate 25 mm diameter, standard glenosphere cobalt chrome 36 mm diameter, Tornier perform inlay stem size # 2, 0 mm retentive size number 2 36 mm diameter polyethylene insert, short central post and peripheral screws x4. Surgical indications: This is a 68-year-old female with persistent left shoulder pain. Patient underwent rotator cuff repair of the left shoulder approximately 2 years ago. She had short-term relief of pain. She did have osteoarthritic changes noted on x-rays as well as superior escape. A repeat MRI demonstrated an intact rotator cuff but this appeared to be nonfunctional. She failed nonoperative management in the form of PT, NSAIDs, activity modification, and corticosteroid injections. I recommended a reverse shoulder arthroplasty. We obtained a preoperative CT scan for planning. The risks, benefits, alternatives the procedure was reviewed with the patient and he agreed to proceed. Risks included but were not limited to bleeding, infection, instability, loss of life or limb, risk of anesthesia, neurovascular injury, persistent pain, stiffness, prolonged immobilization, need for additional surgery, loosening of orthopedic hardware. She expressed understanding and wished to proceed with surgery. Surgical details: Patient arrived to [facility] morning of the procedure and was greeted by the same day surgery staff. Prior to her procedure, I greeted the patient in the preoperative holding area I identified the patient by name, record number, and date of . Informed consent was confirmed. The operative extremity was marked. All questions were answered to patient satisfaction. An interscalene block was administered prior to procedure by anesthesia staff for postoperative and intraoperative analgesia. At time of her procedure, patient was brought to the operative suite and positioned supine on a standard table with a beachchair attachment. General anesthesia was induced after all bony prominences were well-padded. Endotracheal tube was placed. After adequate anesthesia and securing the tube, we prepared the patient to be positioned in the beachchair position. A well-padded wharf tender head was applied. The nonoperative extremity was placed in a well arm duarte. She was then brought into the beachchair position after we confirmed an appropriate blood pressure. We then spun the bed 45 degrees. The operative extremity was then prepared. Then the butterfly wing of the bed was removed and a well-padded torso strap was applied to secure the patient to the bed. The operative extremity was now free. We then prepped and draped the left upper extremity in normal, sterile orthopedic fashion. We then performed a timeout with all parties in attendance in agreement with the side, site, and operation be performed. 2 g Ancef was administered prior to incision by anesthesia staff, as well as 1 g TXA IV. No concerns were voiced and we elected to proceed. I first marked a standard deltopectoral incision just lateral to the coracoid process in line with the long axis of the humerus. Skin was sharply incised with 10 blade scalpel. I then dissected bluntly through the subcutaneous layers and found the fat stripe between the deltoid and pectoralis major. The cephalic vein was then identified and protected. It was retracted laterally with the deltoid. I then bluntly dissected underneath the deltoid with a Hernandez elevator. Jamal retractor was placed. The upper 1 cm of the pectoralis major was released. I then identified the long head of the biceps tendon in the intertubercular groove. This was tenodesed in situ with #2 FiberWire. I then amputated the biceps proximal to the tenodesis site and followed the tendon to the supraglenoid tubercle where it was amputated. This identified the lesser and greater tuberosities. The supraspinatus was intact. I then performed a subscapularis peel while rotating the humerus externally. Humeral head was then dislocated anteriorly. Appropriate access to the humeral head was confirmed. I then subluxed the humeral head posteriorly with a Fukuda retractor placed around the posterior lip of the glenoid. Inferior capsule was tensioned. I was able to palpate the axillary nerve. Inferior capsule was then released to the 4 o'clock position of the glenoid face. 3 sided subscapularis release was performed with Bovie cautery. I then remove the Fukuda retractor and redislocated the shoulder anteriorly. I then made a anatomic neck cut of the cartilaginous surface of the humeral head. Sizing plate for a size # 2 stem was utilized to determine appropriate reaming size. A central pin was placed engaging the lateral cortex of the humerus. A size # 2 reamer was used to ream the humeral metaphysis and prepare for the inlay stem. A canal finding reamer was utilized prior to sequential broaching to a size # 2 short stem with excellent rotational and axial purchase in the humerus. I remove the broach handle left the size # [address] I then subluxed the humerus posterior to the glenoid. I then placed retractors around the posterior and anterior glenoid to expose the glenoid. Glenoid labrum was removed with Bovie cautery protecting the axillary nerve. We then used the custom guide from Mary[employer] to position our centering pin, exiting approximately 25 mm from the joint surface along the anterior scapula. Guide was removed and pin was analyzed and compared to preoperative planning. It appeared to be in appropriate position. The full wedge augmented reamer was then placed over top of the central pin and reamed to our planned augmented reaming. Cancellous bleeding was noted. We then removed the reamer and used the cannulated drill for the short central post. Post and baseplate was assembled on the back table. We then inserted the baseplate and central post the assembled baseplate to an appropriate depth with good press-fit purchase. A [place] was used to confirm depth. Cortical screws then were placed in the peripheral holes with good purchase. The baseplate had excellent purchase and the entire scapula would rotate with rotation of the baseplate. We then impacted the 36 mm glenosphere with a standard eccentricity and tightened the locking screw mechanism. We then removed retractors and turned our attention back to the humerus. I placed a standard + 0 millimeters retentive polyethylene insert. I then reduced the shoulder. There was excellent range of motion and stability in all planes of motion. We selected this as our final size. We removed trials from the humerus after final dislocation. I copiously irrigated the canal. Broach was placed on hand and then impacted to an appropriate depth. Final + 0 mm retentive polyethylene insert was placed. Final reduction was then performed. We then copiously irrigated the wound with sterile Betadine and normal saline solution. We reapproximated the interval with 0 Vicryl suture. Subcutaneous layers were reapproximated with 2 -0 Vicryl suture. Skin was finally running V-Loc 3-0 Monocryl suture and Dermabond. A sterile silver Mepilex dressing was applied. Patient was then placed in an ultra sling. Patient tolerated procedure well without complication. He was positioned back in the supine position extubated in the operative suite. He was transferred to the [place] and subsequently to PACU in stable condition. Need for skilled assistant professor of geography: Arleen Montana PA-C was critical to the outcome of the case. During the course of the procedure the physician assistant professor of geography played a vital role. Her intimate knowledge of my steps in the procedure aided in safe and expedient completion of the procedure. The PA played a vital role in positioning particularly in obtaining the appropriate positioning. The PA was also vital in the retraction of soft tissues during the exposure and protecting vital structures. The PA was also vital and protecting soft tissues during times of bony cuts. She also played a vital role in closure with my direct supervision. The PA was also important during reduction and dislocation of the joint and trials intraoperatively. Intraoperative medications: 2 g Ancef IV, 1 g TXA IV x2 Post Operative Plan: Plan for same-day surgery and discharge home after same-day surgery criteria are met. Weightbearing: Nonweightbearing left upper extremity, okay for pendulums. Range of motion of wrist elbow and hand as tolerated. Antibiotics: 2 g Ancef IV prior to incision, 24 hours IV antibiotics postoperatively DVT Prophylaxis: Aspirin enteric-coated 81 mg twice daily starting tomorrow Calderon: None Dressing: Maintain silver dressing x7 days. Okay to shower dressing on starting on day 4 X-Rays: 2 weeks postop in the office Pain Medication: Multimodal with NSAIDs, Tylenol, and oxycodone upon discharge Follow-up: 2 weeks post-operatively in the office
[2023-11-05] MEDS: oxyCODONE 5 MG Tablet PO (11:13)
[2023-11-05] MEDS: Cefazolin 1 GM/50 ML BAG IV (12:16)
== END 2023-11-05 13:25 | disposition home or self-care (01) ==
LOC: SDC 05:26 → AC 05:27
PROVIDERS: Anesthesiology; PCP Family Medicine; Referring Provider Student in an Organized Health Care Education/Training Program; Visit Provider Student in an Organized Health Care Education/Training Program
PROC: (CPT 23472; principal; 2023-11-05 07:00)
DX: M19.012 Primary osteoarthritis, left shoulder (principal); I27.21 Secondary pulmonary arterial hypertension; E27.40 Unspecified adrenocortical insufficiency; N18.9 Chronic kidney disease, unspecified; Z86.711 Personal history of pulmonary embolism; E78.5 Hyperlipidemia, unspecified; I12.9 Hypertensive chronic kidney disease with stage 1 through stage 4 chronic kidney disease, or unspecified chronic kidney disease; K21.9 Gastro-esophageal reflux disease without esophagitis; Z96.653 Presence of artificial knee joint, bilateral; Z90.710 Acquired absence of both cervix and uterus; Z90.89 Acquired absence of other organs; Z90.5 Acquired absence of kidney; M79.7 Fibromyalgia; G50.0 Trigeminal neuralgia; F32.9 Major depressive disorder, single episode, unspecified; Z79.899 Other long term (current) drug therapy
CPT/HCPCS: 23472; 01638; 64450; 36415; 73030; 80048; 82040; 82962; 83036; 83735; 85025; 87081; 88305; 88311; C1776; J7120; J2405; J3475

== ENCOUNTER 2023-12-12 16:57 | Emergency (ER) | payer MEDICARE, OTHER, SELFPAY ==
[2023-12-12 16:58] VITALS: BP 165/107; PULSE 63; RESP 18; TEMP 36.3; O2SAT 95; BMI 42.1
--- NOTE | 2023-12-12 17:25 | RAD_ITS ---
INDICATION: pain EXAMINATION/TECHNIQUE: X-RAY - LEFT XR Shoulder Min 2 Views 2 VIEWS COMPARISON: Prior study dated: 11/03/2023 FINDINGS: SOFT TISSUES: No soft tissue swelling or gas. No radiopaque foreign body. BONES/JOINTS: No acute fracture or subluxation.. Status post left total shoulder arthroplasty with no evidence of hardware failure loosening. No sclerotic or destructive changes observed. RAD/Shoulder min 2 Views IMPRESSION: No acute fracture. Status post left total shoulder arthroplasty with no evidence of hardware failure loosening. Electronically Signed: Cal Barry MD at 18:31 EDT ,
--- NOTE | 2023-12-12 17:25 | RAD_ITS ---
INDICATION: fall EXAMINATION/TECHNIQUE: X-RAY - XR Chest 2 Views COMPARISON: None. FINDINGS: The lungs are clear. Tortuous and calcified thoracic aorta. The heart is mildly enlarged. No pleural effusion or pneumothorax. Degenerative changes of the thoracic spine. Left total shoulder arthroplasty. RAD/Chest PA and Lateral IMPRESSION: No acute radiographic abnormalities. Electronically Signed: Cal Barry MD at 18:29 EDT ,
--- NOTE | 2023-12-12 18:01 | EDS_ITS ---
HPI History of Present Illness HPI Narrative: Patient presents with left shoulder and left upper chest pain that began today. Patient states she tripped over her dog and landed on her left shoulder. Patient states she had recent total shoulder replacement. Patient describes her pain as sharp, aching, burning, and stabbing. Patient states it is worse with certain movements. Patient states it is better with rest. Patient denies any paresthesias or weakness. Patient denies any head injury or loss of cons ciousness. Patient denies any other injuries. Chief Complaint: Upper Extremity Injury Occured/Mechanism Mechanism/Context: Yes fall Onset/Context/Timing Onset: Today Context: Sudden Onset Timing: Continuous Quality of Pain: Sharp, Aching, Burning and Stabbing Location: Left shoulder and left upper chest Worsened by: Movement Relieved by: Rest Associated Symptoms Associated Symptoms: Negative for Parasthesia, Weakness or [facility] of [facility]ion [facility] Adrenal insufficiency Alcohol use Anxiety and depression Aortic insufficiency Arthritis Bronchitis Cardiology follow-up encounter Chronic kidney disease Fibromyalgia GERD (gastroesophageal reflux disease) History of echocardiogram History of pulmonary embolism History of steroid therapy History of unilateral nephrectomy Hyperlipidemia Hypertension Insomnia Leg cramps Migraine headache Non-rheumatic tricuspid valve insufficiency Non-smoker Nonrheumatic mitral (valve) insufficiency Osteoarthritis Peripheral neuropathy Pulmonary embolism Pulmonary hypertension Pulmonary nodule Secondary pulmonary arterial hypertension Shortness of breath on exertion Trigeminal neuralgia Vitamin D deficiency Home Medications trazodone 50 mg tablet 150 mg PO QHS 07/23/13 [History Last Taken 10/19/15] bupropion HCl 300 mg 24 hr tablet, extended release 300 mg PO DAILY 02/24/19 [History Last Taken Unknown] hydrocortisone 20 mg tablet 20 mg PO DAILY 04/30/19 [History Last Taken 12/15/22 07:00] albuterol sulfate 90 mcg/actuation aerosol inhaler 1 inh inhalation Q6H PRN ASTHMA 12/11/22 [History Last Taken Unknown] acyclovir 400 mg tablet 400 mg PO TID PRN Cold Sores 05/15/23 [History Last Taken Unknown] albuterol sulfate 2.5 mg/3 mL (0.083 %) solution for nebulization 2.5 mg inhalation Q4H PRN SOB 05/15/23 [History Last Taken Unknown] hydrocortisone 10 mg tablet 10 mg PO QHS 05/15/23 [History Last Taken Unknown] hydroxyzine HCl 50 mg tablet 50 mg PO TID PRN itching 05/15/23 [History Last Taken Unknown] pantoprazole 40 mg tablet,delayed release 40 mg PO DAILY 05/15/23 [History Last Taken Unknown] rosuvastatin 10 mg tablet 10 mg PO DAILY 05/15/23 [History Last Taken Unknown] sertraline 100 mg tablet 100 mg PO QHS 05/15/23 [History Last Taken Unknown] metoprolol succinate 50 mg tablet,extended release 24 hr 50 mg PO QHS 10/13/23 [History Last Taken 11/04/23] Allergy/AdvReac Type Severity Reaction Status Date / Time Sulfa (Sulfonamide Allergy Hives Verified 12/12/23 16:58 Antibiotics) Family History Mother Myocardial infarction age 67 Heart disease CHF, [place] Depression Diabetes Father Asthma Arthritis Heart disease Diabetes Hypertension Brother Kidney disease Grandmother Diabetes Colon cancer CVA (cerebral vascular accident) Aunt Diabetes Uncle Diabetes Other Bowel disease Surgical History H/O foot surgery H/O reduction mammoplasty History of bilateral knee replacement History of esophagogastroduodenoscopy (EGD) History of hysterectomy History of right and left heart catheterization (08/13/15) History of tonsillectomy Hx of colonoscopy Hx of repair of left rotator cuff Status post uvulopalatopharyngoplasty Social History Smoking Status: Never smoker alcohol intake: current details: occasionally substance use type: does not use frequency: 3-4 times per week ROS ROS ED Constitutional Constitutional ED: Denies chills or fever(s) Eyes Eyes: Denies blurry vision or change in vision ENT ENT ED: Denies rhinorrhea or sore throat Cardiovascular Cardiovascular: Denies chest pain or palpitations Respiratory/Chest Respiratory/Chest: Denies cough or dyspnea Gastrointestinal Gastrointestinal: Denies nausea or vomiting Genitourinary Genitourinary ED: Denies dysuria or hematuria Musculoskeletal Musculoskeletal: Denies back pain or neck pain Integumentary Denies abscess or rash Neurologic Neurologic: Denies headache(s) or weakness Allergic/Immunologic Allergic/Immunologic ED: Denies mouth swelling or urticaria EXAM Physical Exam Const Vital Signs: 12/12/23 16:58 Temperature 97.3 F L Temperature Source Temporal Pulse Rate 63 Respiratory Rate 18 Blood Pressure 165/107 H Blood Pressure Mean 126 Pulse Ox 95 Oxygen Delivery Method Room Air Positive well nourished, well developed and obese General Appearance ED: well developed and NAD Nutritional Appearance: obese HEENT Reports moist mucous membranes Neck full ROM and supple Resp normal respiratory effort and clear to auscultation bilaterally Cardio regular rate and regular rhythm GI non-tender and non-distended Palpation: soft Extremity Extremity Narrative: There is tenderness over the left shoulder. There is no edema or ecchymosis. There is no obvious deformity noted. The incision is healing well. There is no signs of any infection. There is no bleeding noted. Range of motion was limited in all motions of the left shoulder secondary to pain. Strength is 5/5 in the radial, median, and ulnar areas. Sensation was intact to light touch in the radial, median, and ulnar areas. Radial pulses are equal bilaterally. Neuro oriented x3, CN's II-XII intact bilaterally, moves all extremities, no focal motor deficits and no sensory deficits noted Sensorium / Orientation: alert Motor Exam: strength 5/5 throughout Psych mental status grossly normal MDM MDM MDM Narrative Medical decision making narrative: Differential diagnosis includes periprosthetic fracture, dislocation, rib fracture, and soft tissue contusion. X-rays of the chest will be obtained to assess for rib fracture and pneumothorax. X-rays of the left shoulder will be obtained to assess for fracture and dislocation. Radiography Chest X-Ray - ED: 2 View, Read by ED Physician, Read by Radiologist and No Acute Disease Diagnostic Testing: X-rays of the left shoulder were obtained. There are 2 views. On my independent interpretation, there is no acute fracture or dislocation noted. Radiologist also interpreted the x-rays and agrees. PA and lateral chest x-ray was obtained. There are 2 views. On my independent interpretation, lung ngo are clear. There is normal cardiac silhouette. Bony thorax is normal. There is no acute process noted. Radiologist also interpreted the x-ray and agrees. Treatment and Re-Evaluation Narrative: Patient was given a dose of [place] here. Patient was advised of her findings. Patient was instructed to use ice to the area. Patient states she still has pain medication from her surgery. Patient was instructed to use those as needed. Patient was instructed to follow-up with her primary care physician in 5 to 7 days. Patient understood and was agreeable with the plan. All questions were answered Discharge Plan Triage Chief Complaint: Upper Extremity Injury ED Provider: Indio Martinez Dx/Rx/DC Orders Clinical Impression: Fall, Contusion of left shoulder Instructions: ED Shoulder Bruise Prescriptions: No Action acyclovir 400 mg tablet 400 mg PO TID PRN (Reason: Cold Sores) Rx Instructions: take for 5 days as needed for cold sores pantoprazole 40 mg tablet,delayed release (DR/EC) 40 mg PO DAILY sertraline 100 mg tablet 100 mg PO QHS hydroxyzine HCl 50 mg tablet 50 mg PO TID PRN (Reason: itching) hydrocortisone 10 mg tablet 10 mg PO QHS rosuvastatin 10 mg tablet 10 mg PO DAILY trazodone 50 MG tablet 150 mg PO QHS Patient Comments: SLEEP bupropion HCl 300 MG tablet extended release 24 hr 300 mg PO DAILY hydrocortisone 20 MG tablet 20 mg PO DAILY albuterol sulfate 90 mcg/actuation Hfa Aerosol Inhaler 1 inh INHALATION Q6H PRN (Reason: ASTHMA) albuterol sulfate 2.5 mg /3 mL (0.083 %) solution for nebulization 2.5 mg inhalation Q4H PRN (Reason: SOB) Rx Instructions: Use q2-4 hours PRN metoprolol succinate 50 mg tablet extended release 24 hr 50 mg PO QHS Primary Care Provider: Weston Cárdenas Referrals: Weston Cárdenas DO [Primary Care Provider] - 5-7 Days Disposition Disposition: Home, Self Care
[2023-12-12] MEDS: HYDROcodone Bitartrate/Apap 5/325 Tablet PO (19:12)
[2023-12-12 20:07] VITALS: BP 158/68; PULSE 78; RESP 16; TEMP 36.6; O2SAT 100
== END 2023-12-12 20:08 | disposition home or self-care (01) ==
PROVIDERS: Emergency Provider Emergency Medicine; PCP Family Medicine; Visit Provider Emergency Medicine
DX: S40.012A Contusion of left shoulder, initial encounter (principal); W01.10XA Fall on same level from slipping, tripping and stumbling with subsequent striking against unspecified object, initial encounter; E78.5 Hyperlipidemia, unspecified; I12.9 Hypertensive chronic kidney disease with stage 1 through stage 4 chronic kidney disease, or unspecified chronic kidney disease; N18.9 Chronic kidney disease, unspecified; F41.8 Other specified anxiety disorders; Z79.899 Other long term (current) drug therapy; K21.9 Gastro-esophageal reflux disease without esophagitis; Z96.653 Presence of artificial knee joint, bilateral; Z90.710 Acquired absence of both cervix and uterus
CPT/HCPCS: 71046; 73030; 99282

== ENCOUNTER → 2024-01-04 | Outpatient (CLI) | payer MEDICARE, OTHER, SELFPAY ==
--- NOTE | 2024-01-04 10:46 | RAD_ITS ---
STUDY: X-RAY - LEFT SHOULDER REASON FOR EXAM: Female, 68 years old. PAIN AFTER FALL TECHNIQUE: 4 views of the left shoulder. COMPARISON: None. FINDINGS: There is a left reverse shoulder arthroplasty in place. There is no periprosthetic fracture. There is minimal acromioclavicular arthrosis. Normal acromion. There is a suspected 1.2 cm calcified loose body projecting over the subcoracoid bursa region. The soft tissue structures are otherwise unremarkable. There is no demonstrated fracture. Normal visualized pulmonary apex. RAD/Shoulder min 2 Views IMPRESSION: Left reverse shoulder arthroplasty, with no periprosthetic fracture. Minimal acromioclavicular arthrosis. Suspected 1.2 cm calcified loose body projecting over the subcoracoid bursa region. Electronically Signed: Jeff Morrissey MD at 11:08 EDT ,
--- NOTE | 2024-01-04 10:46 | RAD_ITS ---
STUDY: X-RAY - LEFT TIBIA AND FIBULA REASON FOR EXAM: Female, 68 years old. PAIN AFTER FALL TECHNIQUE: 4 views of the left tibia and fibula were obtained. COMPARISON: None. FINDINGS: There is a left total knee arthroplasty with patellar resurfacing. The orthopedic hardware components are intact. There is no periprosthetic fracture. Normal proximal tibiofibular articulation. RAD/Tibia & Fibula 2 Views IMPRESSION: New postoperative changes related to left total knee arthroplasty. Electronically Signed: Jeff Morrissey MD at 11:11 EDT ,
== END | disposition home or self-care (01) ==
LOC: MTRAD 10:43
PROVIDERS: PCP Family Medicine; Referring Provider Family Medicine; Visit Provider Family Medicine
DX: M25.512 Pain in left shoulder (principal); M79.605 Pain in left leg
CPT/HCPCS: 73030; 73590

== ENCOUNTER → 2024-01-29 | Outpatient (CLI) | payer MEDICARE, OTHER, SELFPAY ==
[2024-01-29 15:51] LABS: Erythrocyte Sedimentation Rate 11 mm/hr (0-30)
== END | disposition home or self-care (01) ==
LOC: LABSPEC 12:26
PROVIDERS: PCP Family Medicine; Referring Provider Family Medicine; Visit Provider Family Medicine
DX: M79.10 Myalgia, unspecified site (principal)
CPT/HCPCS: 36415; 85652

== ENCOUNTER → 2024-02-08 | Outpatient (CLI) | payer MEDICARE, OTHER, SELFPAY ==
[2024-02-08 12:46] LABS: Vitamin B12 447 pg/mL (211-911)
[2024-02-08 13:28] LABS: T4 Free Direct 1.24 ng/dL (0.76-1.46); Thyroid Stim Hormone (TSH) 2.71 uIU/mL (0.358-3.74)
[2024-02-08 13:44] LABS: Hemoglobin A1c 5.5 % (3.8-5.6)
[2024-02-09 13:08] LABS: ANTINUCLEAR ANTIBODIES DIRECT Negative (Negative)
[2024-02-10 15:08] LABS: PROEL- A/G Ratio 1.2 (0.7-1.7); PROEL- Albumin 3.5 g/dL (2.9-4.4); PROEL- Alpha-1 Globulin 0.2 g/dL (0.0-0.4); PROEL- Alpha-2 Globulin 0.7 g/dL (0.4-1.0); PROEL- Beta Globulin 1.1 g/dL (0.7-1.3); PROEL- Gamma Globulin 0.9 g/dL (0.4-1.8); PROEL- Globulin, Total 2.9 g/dL (2.2-3.9); PROEL- TOTAL PROTEIN 6.4 g/dL (6.0-8.5); PROEL-M-Spike Comment: g/dL (Not Observed); PROELU- Albumin, Urine 56.9 % (.); PROELU- Alpha-1-Globulin,Ur 4.8 % (.); PROELU- Alpha-2-Globulin,Ur 15.3 % (.); PROELU- Beta Globulin, Ur 14.8 % (.); PROELU- Gamma Globulin, Ur 8.2 % (.); Total Protein, Ur 4.5 mg/dL (Not Estab.)
== END | disposition home or self-care (01) ==
PROVIDERS: PCP Family Medicine; Referring Provider Family Medicine; Visit Provider Family Medicine
DX: M25.50 Pain in unspecified joint (principal); R77.1 Abnormality of globulin; R73.9 Hyperglycemia, unspecified; R53.83 Other fatigue; G62.9 Polyneuropathy, unspecified
CPT/HCPCS: 36415; 82607; 83036; 84165; 84166; 84439; 84443; 86038; 86225; 86235

== ENCOUNTER → 2024-02-16 | Outpatient (CLI) | payer MEDICARE, OTHER, SELFPAY ==
[2024-02-16 13:09] LABS: CPK Total, Creatine Kinase 32 U/L (26-192)
[2024-02-18 15:08] LABS: PROEL- A/G Ratio 1.2 (0.7-1.7); PROEL- Albumin 3.6 g/dL (2.9-4.4); PROEL- Alpha-1 Globulin 0.2 g/dL (0.0-0.4); PROEL- Alpha-2 Globulin 0.8 g/dL (0.4-1.0); PROEL- Beta Globulin 1.1 g/dL (0.7-1.3); PROEL- Gamma Globulin 0.9 g/dL (0.4-1.8); PROEL- TOTAL PROTEIN 6.6 g/dL (6.0-8.5); PROEL-M-Spike Comment: g/dL (Not Observed)
== END | disposition home or self-care (01) ==
LOC: BFHLAB 10:47
PROVIDERS: PCP Family Medicine; Referring Provider Family Medicine; Visit Provider Family Medicine
DX: R77.1 Abnormality of globulin (principal); G62.9 Polyneuropathy, unspecified; M79.10 Myalgia, unspecified site
CPT/HCPCS: 82550; 84165

== ENCOUNTER 2024-02-17 13:24 | Outpatient (CLI) | payer MEDICARE, OTHER, SELFPAY ==
[2024-02-22 13:07] LABS: Creatinine, Urine 0.26 g/L (0.30-3.00)
== END 2024-02-17 23:59 | disposition home or self-care (01) ==
LOC: BFHLAB 13:27 → LABSPEC 13:27
PROVIDERS: PCP Family Medicine; Referring Provider Family Medicine; Visit Provider Family Medicine
DX: G62.9 Polyneuropathy, unspecified (principal); R77.1 Abnormality of globulin
CPT/HCPCS: 82175; 82570; 83655; 83825

== ENCOUNTER → 2024-02-23 | Outpatient (CLI) | payer MEDICARE, OTHER, SELFPAY ==
[2024-02-26 17:07] LABS: Arsenic 7245 2 ug/L (0-9); Immunofixation Result, Serum Comment: (.); Immunoglobulin A 236 mg/dL (87-352); Immunoglobulin G 897 mg/dL (586-1602); Immunoglobulin M 61 mg/dL (26-217); Lead, Blood < 1.0 ug/dL (0.0-3.4); Mercury, Blood 85324 < 1.0 ug/L (0.0-14.9)
== END | disposition home or self-care (01) ==
LOC: BFHLAB 15:48
PROVIDERS: PCP Family Medicine; Referring Provider Family Medicine; Visit Provider Family Medicine
DX: G62.9 Polyneuropathy, unspecified (principal); C88.2 Heavy chain disease
CPT/HCPCS: 36415; 82175; 82784; 83655; 83825; 86334

== ENCOUNTER → 2024-03-07 | Outpatient (CLI) | payer MEDICARE, OTHER, SELFPAY ==
[2024-03-14 16:09] LABS: Acetylcholine Receptor Binding < 0.03 nmol/L (0.00-0.24)
== END | disposition home or self-care (01) ==
LOC: BFHLAB 13:57
PROVIDERS: PCP Family Medicine; Referring Provider Family Medicine; Visit Provider Family Medicine
DX: R53.1 Weakness (principal); R53.83 Other fatigue; E27.40 Unspecified adrenocortical insufficiency
CPT/HCPCS: 36415; 82533; 84238

== ENCOUNTER → 2024-03-14 | Outpatient (CLI) | payer MEDICARE, OTHER, SELFPAY ==
--- NOTE | 2024-03-14 10:42 | STRESSREP ---
Stress Test Report Pharmacologic myocardial perfusion stress test. 68-year-old lady with a history of coronary artery disease Resting EKG demonstrates sinus bradycardia with a rate of 57 bpm. Resting blood pressure is 140/96 mmHg. 0.4 mg of regadenoson was infused per usual protocol followed by rapid intravenous saline flush injection. Continuous EKG monitoring was performed. The maximum heart rate was 76 bpm which was 50% of max impacted heart rate the maximum workload was 1 metabolic equivalent. At rest there were no ST or T wave changes noted to suggest ischemia and at peak infusion nonspecific ST changes were noted which did not meet the criteria for ischemia. No clinical angina is noted. The final blood pressure was 132/92 mmHg. Myocardial perfusion protocol. 14.3 mCi of technetium 99m sestamibi was injected at rest. 0.4 mg of regadenoson was infused per usual protocol. At peak infusion 43.7 mCi of technetium 99m sestamibi was injected stress images were obtained stress and rest images were reconstructed and compared in the short axis vertical long and horizontal long axis. Gated images were also obtained. Perfusion SPECT analysis: Review of the stress images demonstrate normal uptake of tracer noted in all areas of the myocardium. The resting images similar demonstrated normal uptake of tracer noted in all areas of the myocardium. No areas of reversibility are noted to suggest ischemia and no previous infarct is noted. Gated SPECT analysis: The gated ejection fraction is 69%. Conclusion: Normal pharmacologic myocardial perfusion stress test. Preserved ejection fraction.
== END | disposition home or self-care (01) ==
LOC: CVS 06:14
PROVIDERS: PCP Family Medicine; Referring Provider Family Medicine; Visit Provider Family Medicine
DX: I25.10 Atherosclerotic heart disease of native coronary artery without angina pectoris (principal)
CPT/HCPCS: 78452; 93017; A9500; A4216; J2785

== ENCOUNTER → 2024-04-11 | Outpatient (CLI) | payer MEDICARE, OTHER, SELFPAY ==
--- NOTE | 2024-04-11 10:20 | BI_ITS ---
MAMMOGRAPHY - BILATERAL SCREENING REASON FOR EXAM: Female, 68 years old. Routine annual screening examination. PERTINENT HISTORY: Non-contributory. History of prior bilateral breast reduction surgery. TECHNIQUE: Digital bilateral breast gracia (3D mammographic acquisition) in the CC and MLO projections. 2-D mediolateral oblique (MLO) and craniocaudad (CC) views of both breasts were obtained. CAD: Full Field Digital Mammography with Computer Added Detection was performed. COMPARISON: Comparison is made with prior study dated April 09, 2023 and August 13, 2021. FINDINGS: Breast Composition: The breasts are almost entirely fatty. There are no dominant masses or suspicious calcifications. No other significant abnormalities are identified. There has been no significant change since the prior study. BI/SCRN MAMM (CAD)W/GRACIA BILAT IMPRESSION: Stable bilateral screening mammogram. Yearly follow-up mammogram recommended. (A) ASSESSMENT CATEGORY: BIRADS Category 1: Negative. A letter regarding these results will be sent to the patient by the facility within 30 days. Approximately 10% of breast cancers are not detected by mammography. A normal mammogram should not delay biopsy of a clinically suspicious abnormality. [id number] Electronically Signed: Wu Alicia MD at 11:01 EDT ,
== END | disposition home or self-care (01) ==
LOC: OPBI 10:19
PROVIDERS: PCP Family Medicine; Referring Provider Family Medicine; Visit Provider Family Medicine
DX: Z12.31 Encounter for screening mammogram for malignant neoplasm of breast (principal)
CPT/HCPCS: 77063; 77067

== ENCOUNTER → 2024-04-11 | Outpatient (CLI) | payer MEDICARE, OTHER, SELFPAY | END | disposition home or self-care (01) | LOC: MTLAB 10:56 | PROVIDERS: PCP Family Medicine; Referring Provider Family Medicine; Visit Provider Family Medicine | DX: E27.40 Unspecified adrenocortical insufficiency (principal) | CPT/HCPCS: 36415; 82533 ==

== ENCOUNTER → 2024-04-12 | Outpatient (CLI) | payer MEDICARE, OTHER, SELFPAY ==
[2024-04-12 07:00] LABS: CREATININE FINGERSTICK < 1.0 mg/dL (0.55-1.02); EGFR FINGERSTICK > 60.0000 mL/min (>60)
--- NOTE | 2024-04-12 07:00 | MRI_ITS ---
STUDY: MRI BRAIN WITH AND WITHOUT CONTRAST REASON FOR EXAM: Female, 68 years old. fatigue, weakness, dizziness, visual changes TECHNIQUE: Standardized multiplanar fat and water weighted pulse sequences were obtained. IV 20cc clariscan was administered for the contrast portion of the examination. COMPARISON: CT 02/27/2016 FINDINGS: Normal size of the ventricles and extra-axial spaces for the patient''s age. Normal white matter tracts of the supratentorial brain. There is no evidence for recent intracranial ischemia or other cause of cytotoxic edema on diffusion weighted imaging (DWI). Normal T2* images of the brain without demonstrated susceptibility artifact. There is no demonstrated hemosiderin stain. Normal bilateral basal ganglia. Normal thalami. There is no extra-axial fluid accumulation. Normal flow voids within the major intracranial circulation suggesting patency by spin echo criteria. Normal venous enhancement. There is no enhancing intra-axial or extra-axial abnormality. Normal sella turcica, pituitary gland, infundibular stalk, optic chiasm and hypothalamus. Normal tectal plate and pineal gland. Normal midbrain, crystal and medulla. Normal cerebellum. Normal basal cisterns. Normal bilateral temporal bones. Normal bilateral internal auditory canals. There are bilateral ocular lens implants with otherwise normal intraorbital contents. Normal visualized paranasal sinuses. Normal calvarium and skull base. Normal visualized soft tissue structures. Normal visualized upper cervical spine. MRI/Brain W/WO Contrast IMPRESSION: Normal unenhanced and enhanced MRI of the brain. Electronically Signed: Jovanni Irene MD at 14:01 EDT ,
== END | disposition home or self-care (01) ==
PROVIDERS: PCP Family Medicine; Referring Provider Family Medicine; Visit Provider Family Medicine
DX: R42 Dizziness and giddiness (principal); H53.2 Diplopia; R41.3 Other amnesia
CPT/HCPCS: 70553; A9575

== ENCOUNTER → 2024-05-05 | Outpatient (CLI) | payer MEDICARE, OTHER, SELFPAY ==
[2024-05-05 17:50] LABS: Absolute Lymphocyte Count 1.82 X10^3/uL (0.83-4.51); Absolute Neutrophil Count 4.4 X10^3/uL (2.0-7.7); Basophil# 0.09 X10^3/uL; Basophil% 1.2 % (0-1); Eosinophil# 0.34 X10^3/uL; Eosinophils% 4.7 % (0-5); Hematocrit 36.9 % (37-47); Hemoglobin 11.8 g/dL (12.0-15.0); Lymphocyte # 1.82 X10^3/ul (0.83-4.51); Mean Corpuscular Hgb 29.6 pg (27.0-32.0); Mean Corpuscular Volume 92.7 fL (81-99); Mean Platelet Vol. 9.8 fl (6.2-12.0); Monocyte# 0.65 X10^3/uL; Monocyte% 8.9 % (0-10); NRBC Flagged by Analyzer 0 % (0-5); Neutrophil # 4.36 X10^3/uL (2.7-7.7); Neutrophil % 59.9 % (47-70); Platelet Count 297 K/mm3 (150-450); RBC Distribution Width CV 12.8 % (11.6-14.6); RBC Distribution Width SD 43.7 fl (35.1-43.9); Red Blood Count 3.98 M/mm3 (4.2-5.4); White Blood Count 7.3 K/mm3 (4.4-11.0)
[2024-05-05 17:59] LABS: Rheumatoid Factor < 10.0 IU/mL (<15)
[2024-05-05 18:12] LABS: Erythrocyte Sedimentation Rate 18 mm/hr (0-30)
[2024-05-12 00:07] LABS: CCP IgG Antibodies 5 units (0-19); Lyme IgG P18 Ab Absent (.); Lyme IgG P23 Ab Absent (.); Lyme IgG P28 Ab Absent (.); Lyme IgG P30 Ab Absent (.); Lyme IgG P39 Ab Absent (.); Lyme IgG P41 Ab Present (.); Lyme IgG P45 Ab Absent (.); Lyme IgG P58 Ab Absent (.); Lyme IgG P66 Ab Absent (.); Lyme IgG P93 Ab Absent (.); Lyme IgG WB Interpretation Negative (.); Lyme IgM P23 Ab Absent (.); Lyme IgM P39 Ab Absent (.); Lyme IgM P41 Ab Absent (.); Lyme IgM WB Interpretation Negative (.)
== END | disposition home or self-care (01) ==
LOC: BFHLAB 14:19
PROVIDERS: PCP Family Medicine; Referring Provider Family Medicine; Visit Provider Family Medicine
DX: M13.0 Polyarthritis, unspecified (principal); E27.40 Unspecified adrenocortical insufficiency; R23.3 Spontaneous ecchymoses
CPT/HCPCS: 36415; 82533; 85025; 85652; 86140; 86200; 86431; 86617

== ENCOUNTER → 2024-09-19 | Outpatient (CLI) | payer MEDICARE, OTHER, SELFPAY ==
--- NOTE | 2024-09-19 13:31 | RAD_ITS ---
INDICATION: BACK PAIN EXAMINATION/TECHNIQUE: X-RAY - XR Spine Lumbar Comp W/ Bending Min 6 Views COMPARISON: Prior study dated: 02/20/2020 FINDINGS: The vertebral bodies are normal in height. No definite fracture demonstrated. No subluxation. Disc space narrowing and osteophytes throughout all levels, most pronounced at L4-5 and L5-S1, increased compared to prior. Bilateral facet arthropathy at most levels. No paravertebral soft tissue mass identified. Surgical clips noted in the right midabdomen. Flexion/extension views: No subluxation with flexion or extension. RAD/L/S Spine Comp/w Bending Views IMPRESSION: Degenerative discogenic disease and facet arthropathy. No evidence of fracture or subluxation. Electronically Signed: Graciela Brown MD at 0:03 EST ,
--- NOTE | 2024-09-19 13:31 | RAD_ITS ---
INDICATION: NECK PAIN EXAMINATION/TECHNIQUE: X-RAY - XR Spine Cervical 6 or More Views COMPARISON: No relevant prior comparison study available FINDINGS: The vertebral bodies are normal in height. No definite fracture demonstrated. No subluxation. C1-2 alignment is maintained. Mild disc space narrowing with osteophytes C4-C7. Facet arthropathy bilaterally most pronounced C3-C6. Mild encroachment on the left neural foramen at C3-4. Prevertebral soft tissues are unremarkable. Flexion/extension views: No subluxation with extension. Flexion views are suboptimal. There is minimal 2 mm anterolisthesis C4 on C5 with flexion. C5-C7 levels not well visualized. RAD/Cerv Spine Obl/Flex/Ext Comp IMPRESSION: Degenerative discogenic disease and facet arthropathy. Mild left neural foraminal encroachment at C3-4. Minimal anterolisthesis at C4-5 with flexion. Electronically Signed: Graciela Brown MD at 23:57 EST ,
== END | disposition home or self-care (01) ==
LOC: MTRAD 13:29
PROVIDERS: PCP Family Medicine; Referring Provider Anesthesiology Pain Medicine; Visit Provider Anesthesiology Pain Medicine
DX: M54.2 Cervicalgia (principal); M54.17 Radiculopathy, lumbosacral region
CPT/HCPCS: 72052; 72114

== ENCOUNTER → 2024-09-26 | Outpatient (CLI) | payer MEDICARE, OTHER, SELFPAY | END | disposition home or self-care (01) | LOC: BFHLAB 09:37 | PROVIDERS: PCP Family Medicine; Referring Provider Family Medicine; Visit Provider Family Medicine | DX: E27.40 Unspecified adrenocortical insufficiency (principal) ==

== ENCOUNTER → 2024-09-28 | Outpatient (CLI) | payer MEDICARE, OTHER, SELFPAY ==
[2024-09-28 13:18] LABS: Anion Gap 11 (5-15); BUN 12 mg/dL (7-18); BUN/Creat Ratio 10.3 RATIO (10-20); Calcium,Total 9.1 mg/dL (8.5-10.1); Chloride 105 mmol/L (98-107); Creatinine, Serum 1.16 mg/dL (0.55-1.02); EST Glomerular Filtration Rate 49 mL/min (>60); Est Glom Filt Rate - Afr Amer 60 mL/min (>60); Glucose 91 mg/dL (74-106); Potassium 3.8 mmol/L (3.5-5.1); Sodium Level 138 mmol/L (136-145)
== END | disposition home or self-care (01) ==
LOC: BFHLAB 08:43
PROVIDERS: PCP Family Medicine; Visit Provider Family Medicine
DX: I10 Essential (primary) hypertension (principal); E27.40 Unspecified adrenocortical insufficiency
CPT/HCPCS: 80048; 82533

== ENCOUNTER → 2024-11-25 | Outpatient (CLI) | payer MEDICARE, OTHER, SELFPAY ==
[2024-11-25 12:20] LABS: Erythrocyte Sedimentation Rate 21 mm/hr (0-30)
[2024-11-25 12:46] LABS: CRP 7.52 mg/L (0.0-3.0); Rheumatoid Factor < 10.0 IU/mL (<15)
[2024-11-26 18:08] LABS: CCP IgG Antibodies 6 units (0-19)
== END | disposition home or self-care (01) ==
LOC: BFHLAB 10:11
PROVIDERS: PCP Family Medicine; Referring Provider Family Medicine; Visit Provider Family Medicine
DX: M06.4 Inflammatory polyarthropathy (principal); E27.40 Unspecified adrenocortical insufficiency
CPT/HCPCS: 36415; 85652; 86140; 86200; 86431

== ENCOUNTER → 2024-12-27 | Outpatient (CLI) | payer SELFPAY ==
[2024-12-30 12:10] LABS: SERUM TEARS COLLECTION SPECIMEN PROCESSED
== END | disposition home or self-care (01) ==
PROVIDERS: PCP Family Medicine; Referring Provider Ophthalmology; Visit Provider Ophthalmology
DX: H04.123 Dry eye syndrome of bilateral lacrimal glands (principal)

== ENCOUNTER → 2025-03-01 | Outpatient (CLI) | payer MEDICARE, OTHER, SELFPAY ==
--- NOTE | 2025-03-01 10:30 | RAD_ITS ---
EXAM: XR Bilateral Hips With Pelvis When Performed, 2 or 3 Views CLINICAL INDICATION: PAIN TECHNIQUE: Three or four views of the bilateral hips with pelvis when performed. COMPARISON: No relevant prior studies available. FINDINGS: BONES/JOINTS: Mild degenerative changes of the hip joints, bilaterally. No acute fracture. No dislocation. SOFT TISSUES: Unremarkable. RAD/Hips B/L min 2 views w/ Pelvis IMPRESSION: Degenerative changes as above. Reading [facility]
== END | disposition home or self-care (01) ==
LOC: MTRAD 10:28
PROVIDERS: PCP Family Medicine; Referring Provider Clinical Nurse Specialist Adult Health; Visit Provider Clinical Nurse Specialist Adult Health
DX: M16.0 Bilateral primary osteoarthritis of hip (principal)
CPT/HCPCS: 73521

== ENCOUNTER → 2025-05-19 | Outpatient (CLI) | payer MEDICARE, OTHER, SELFPAY ==
[2025-05-19 10:39] LABS: CRP 7.19 mg/L (0.0-3.0)
== END | disposition home or self-care (01) ==
LOC: MTLAB 08:22
PROVIDERS: PCP Family Medicine; Referring Provider Family Medicine; Visit Provider Family Medicine
DX: M06.041 Rheumatoid arthritis without rheumatoid factor, right hand (principal); M06.042 Rheumatoid arthritis without rheumatoid factor, left hand
CPT/HCPCS: 36415; 85652; 86140

== ENCOUNTER → 2025-07-14 | Outpatient (CLI) | payer MEDICARE, OTHER, SELFPAY ==
[2025-07-14 15:55] LABS: Anion Gap 11 (5-15); BUN 21 mg/dL (4-19); BUN/Creat Ratio 17.6 RATIO (10-20); Calcium,Total 9.1 mg/dL (7.6-11.0); Carbon Dioxide 24.3 mmol/L (21.0-32.0); Chloride 103 mmol/L (98-108); Glucose 95 mg/dL (70-99); Potassium 4.0 mmol/L (3.3-5.1)
== END | disposition home or self-care (01) ==
LOC: BFHLAB 11:34
PROVIDERS: PCP Family Medicine; Visit Provider Family Medicine
DX: I10 Essential (primary) hypertension (principal)
CPT/HCPCS: 36415; 80048